=== PATIENT | female | born 1935 | race American Indian/Alaskan Native ===

== ENCOUNTER 2017-11-03 03:33 | Inpatient (IN) | payer MEDICARE, SELFPAY ==
[2017-11-03] VITALS (16 sets, daily range): BP systolic 106–140; BP diastolic 76–101; PULSE 96–118; RESP 14–19; TEMP 36.2–36.7; O2SAT 92–97; BMI 27.7
--- NOTE | 2017-11-03 03:38 | ED.FALL ---
HPI - Fall General Chief Complaint: Extremity Injury, Lower Stated Complaint: GLF, L hip pain Time Seen by Provider: 11/03/17 03:34 Source: patient, family and EMS Mode of arrival: EMS Limitations: no limitations History of Present Illness HPI Narrative: 82-year-old female brought in by EMS after she had a witnessed fall at home. Patient states that she was trying to sit on a arm chair and missed the seat of the chair and sat on the arm and fell off landing on her left elbow left hip. Has had pain in the left hip since then. Is on anticoagulation but did not hit her head. No loss of consciousness. The fall was witnessed by the patient's son. Related Data Home Medications Medication Instructions Recorded Confirmed MAGNESIUM CHLORIDE SR (MAG-DELAY) 64 mg PO QDAY #0 06/16/12 10/21/17 chlorpheniramine maleate 4 mg PO PRN PRN #0 03/03/17 10/21/17 docusate sodium 100 mg PO BIDP PRN #0 03/03/17 10/21/17 multivitamin [Multiple Vitamins] 1 tab PO QDAY #0 03/03/17 10/21/17 omega 9-pkt-feb-fish oil [Fish Oil] 1,200 mg PO QDAY #0 03/03/17 10/21/17 sennosides [senna] 8.6 mg PO #0 03/03/17 10/21/17 alprazolam 0.25 mg PO Q8HP PRN #0 07/13/17 10/21/17 carboxymethylcellulose sodium 15 ml OP QDAY #0 08/01/17 10/21/17 [Refresh Tears] bisoprolol fumarate 5 mg tablet 15 mg PO DAILY #0 tab 10/21/17 10/21/17 Previous Rx's Medication Instructions Recorded sertraline [Zoloft] 50 mg PO QDAY #30 tab 08/01/17 thyroid (pork) [[place] Thyroid] 120 mg PO QDAY #30 tab 08/01/17 potassium chloride 10 meq PO QDAY #30 tab 08/09/17 benzonatate [Tessalon Perles] 100 mg PO BIDP PRN #30 cap 09/23/17 warfarin 3 mg tablet 3 mg PO DAILY #90 tab 10/19/17 tramadol 50 mg tablet 50 mg PO BID #60 tab 10/21/17 Allergies Allergy/AdvReac Type Severity Reaction Status Date / Time bumetanide [BUMETANIDE] Allergy Unknown Verified 10/21/17 14:06 carisoprodol [CARISOPRODOL] Allergy Unknown Verified 10/21/17 14:06 digoxin [DIGOXIN] Allergy Unknown Verified 10/21/17 14:06 flecainide [FLECAINIDE] Allergy Unknown Verified 10/21/17 14:06 ibuprofen [IBUPROFEN] Allergy Unknown Verified 10/21/17 14:06 lactose [LACTOSE] Allergy Unknown Verified 10/21/17 14:06 Penicillins [PENICILLINS] Allergy Unknown Verified 10/21/17 14:06 quinidine [QUINIDINE] Allergy Unknown Verified 10/21/17 14:06 Quinolones [QUINOLONES] Allergy Unknown Verified 10/21/17 14:06 Sulfa (Sulfonamide Allergy Unknown Verified 10/21/17 14:06 Antibiotics) [SULFA (SULFONAMIDE ANTIBIOTICS)] verapamil [VERAPAMIL] Allergy Unknown Verified 10/21/17 14:06 Review of Systems Constitutional Denies chills, Denies fever(s), Denies lethargy and Denies weakness ENT Ears, Nose, Mouth, and Throat: Denies vertigo and Denies dizziness Cardiovascular Denies chest pain, Denies syncope, Denies irregular heart rhythm, Denies lightheadedness, Denies palpitations, Denies dyspnea, Denies dyspnea on exertion and Denies orthopnea Respiratory Denies cough, Denies dyspnea, Denies dyspnea on exertion and Denies wheezing Gastrointestinal Gastrointestinal: Denies abdominal pain, Denies change in bowel habits, Denies diarrhea, Denies nausea and Denies vomiting Musculoskeletal Comments: Left hip pain Integumentary/Breasts Denies pruritus, Denies erythema, Denies rash and Denies wounds Neurologic Denies confusion, Denies vertigo, Denies dizziness, Denies syncope and Denies weakness Psychiatric Denies confusion Endocrine Denies palpitations Hematologic/Lymphatic Comments: Is on anticoagulation Allergic/Immunologic Denies wheezing Exam Initial Vital Signs Initial Vital Signs: Vital Signs Pulse Rate 96 H 11/03/17 03:45 Respiratory Rate 18 11/03/17 03:45 Blood Pressure 140/100 H 11/03/17 03:45 Pulse Oximetry 96 11/03/17 03:45 Const General: cooperative and well developed Nutritional Appearance: well nourished Orientation: alert, awake and not confused [facility] Head: normal to inspection, normocephalic and atraumatic Resp Effort & Inspection: normal respiratory effort, able to speak in complete sentences, no respiratory distress and no use of accessory muscles Auscultation: clear to auscultation bilaterally, no rales, no rhonchi and no wheezes Cardio Rate: regular rate Rhythm: abnormal rhythm irregularly irregular GI Inspection: non-distended Palpation: soft, no hepatosplenomegaly, No guarding, No pulsatile mass and No tender Auscultation: normal bowel sounds Skin General: no rashes or lesions noted, No jaundice and No petechiae Neuro General: alert, awake and oriented x3 (Oriented to person, place, date, situation, does not know year or month) Extrem Other: Bilateral upper extremities unremarkable Right lower extremity unremarkable Pain with palpation left hip Left knee unremarkable Left ankle unremarkable PFSH Family History Father Heart disease Hypertension Mother Diabetes mellitus Heart disease Hypertension Social History Smoking Status: Never smoker Course Orders Ordered: ED Orders 11/03/17 03:39 XR hip w pel if done LT 2V Stat 11/03/17 04:03 EKG-12 Lead Stat 11/03/17 04:10 Basic Metabolic Panel Stat Complete Blood Count AUTO DIFF Stat Partial Thromboplastin Time Stat Prothrombin Time INR Stat 11/03/17 04:20 Type and Screen Stat Discontinued Medications Morphine Sulfate (Morphine) 4 mg IV NOW ONE Stop: 11/03/17 04:30 Vital Signs - 8 hr 11/03/17 03:45 Pulse Rate 96 H Respiratory Rate 18 Blood Pressure 140/100 H Pulse Oximetry 96 MDM - Fall Medical Records Attestation: I reviewed the patient's medical records. Lab Data Attestation: I reviewed the patient's lab results. Result diagrams: 11/03/17 04:10 11/03/17 04:10 Lab Results 11/03/17 11/03/17 11/03/17 Range/Units 04:10 04:10 04:10 WBC 8.5 (4.5-11.0) X10^3/uL RBC 4.99 (4.0-5.2) X10^6/uL Hgb 15.4 (12.0-16.0) g/dL Hct 47.0 H (36-46) % MCV 94.1 (80-100) fL MCH 30.8 (26-34) PG MCHC 32.8 (30-36) % RDW 18.1 H (11.6-14.8) % Plt Count 212 (150-400) X10^3/uL Neut % (Auto) 60.8 (50-75) % Lymph % (Auto) 27.1 (25-40) % [place] % (Auto) 9.5 (3-14) % Eos % (Auto) 2.0 (2-4) % Baso % (Auto) 0.6 (0-2) % Neut # (Auto) 5200 (8064-1721) /uL PT 20.1 H (10.1-12.7) SECONDS INR 1.9 H (0.9-1.3) APTT 43 H (26.4-36.2) SECONDS Sodium 141 (137-145) mmol/L Potassium 3.9 (3.4-5.1) mmol/L Chloride 98 (98-107) mmol/L Carbon Dioxide 32 (22-32) mmol/L BUN 17 (7-17) mg/dL Creatinine 0.80 (0.52-1.04) mg/dL Estimated GFR > 60.0 (>60) mL/min BUN/Creatinine Ratio 21.3 (6-22) Glucose 102 (80-110) mg/dL Calcium 9.1 (8.4-10.2) mg/dL Imaging Data Left hip x-ray: Radiologist's impression: Subcapital/transcervical fracture of the proximal left femur with mild displacement and impaction. No dislocation ECG Data Attestation: I personally reviewed and interpreted this ECG as follows: Prior ECG tracings: not available for review Interpretation: Atrial fibrillation Ventricular rate in 96 Normal axis Normal QRS Normal QTC Nonspecific ST T wave changes MDM Narrative Medical decision making narrative: Patient is neurovascularly intact left lower extremity. Fracture seen on x-ray. Preoperative labs and EKG ordered. Discussed the case with Dr. Glaser with Orthopedics who will see the patient in the morning and recommended admission to Medicine service. Discussed the case with Dr. Pedraza who admit the patient for the patient's primary care doctor. Discussed the case with the patient and the son who was at bedside. They expressed understanding and agreement with plan Discharge Plan Departure Patient Disposition: Admitted As Inpatient Clinical Impression: Closed fracture of neck of left femur Admit Date/Time: 11/03/17 05:06 Admit Provider: Joselito Pedraza
--- NOTE | 2017-11-03 03:39 | DI.RAD.S_ITS ---
PROCEDURE: XR HIP W PEL IF DONE LT 2V INDICATIONS: Fall left hip pain TECHNIQUE: AP pelvis with lateral view(s) of the left hip(s). COMPARISON: [facility], CR, [id number] W PEL IF PERFORMED, 08/01/2017, 17:27. FINDINGS: Bones: Bilateral degenerative hip joint disease associated with deformity of the femoral heads, unchanged. Subcapital left hip fracture, slightly impacted laterally. Pelvic ring appears intact. No suspicious bony lesions. Soft tissues: The visualized bowel gas pattern is normal. No suspicious soft tissue calcifications. IMPRESSION: 1. Subcapital left femoral neck fracture without angulation deformity. 2. High-grade bilateral degenerative hip joint disease. Dictated by: Sage Ocampo M.D. on 11/03/2017 at 7:58 Approved by: Sage Ocampo M.D. on 11/03/2017 at 8:10
[2017-11-03 04:28] LABS: INR 1.9 (0.9-1.3); Prothrombin Time 20.1 SECONDS (10.1-12.7)
[2017-11-03 04:30] LABS: Add Manual Diff / Slide Review NO; Basophils Percent Auto 0.6 % (0-2); Hemoglobin 15.4 g/dL (12.0-16.0); Lymphocytes Percent Auto 27.1 % (25-40); Mean Corpuscular HGB Conc 32.8 % (30-36); Mean Corpuscular Hemoglobin 30.8 PG (26-34); Mean Corpuscular Volume 94.1 fL (80-100); Monocytes Percent Auto 9.5 % (3-14); Neutrophils Absolute Auto 5200 /uL (3000-5900); Neutrophils Percent Auto 60.8 % (50-75); Platelet Count 212 X10^3/uL (150-400); Red Blood Cell Count 4.99 X10^6/uL (4.0-5.2); Red Cell Distribution Width 18.1 % (11.6-14.8); White Blood Cell Count 8.5 X10^3/uL (4.5-11.0)
[2017-11-03] MEDS: MORPHINE 4 MG/ML INJ IV ×3 (04:30→21:44)
[2017-11-03 04:31] LABS: PTT Partial Thromboplastin Tim 43 SECONDS (26.4-36.2)
[2017-11-03 04:33] LABS: BUN Creatinine Ratio 21.3 (6-22); Blood Urea Nitrogen 17 mg/dL (7-17); Calcium 9.1 mg/dL (8.4-10.2); Carbon Dioxide 32 mmol/L (22-32); Chloride 98 mmol/L (98-107); Estimated Glomerular Filt Rate > 60.0 mL/min (>60); Glucose 102 mg/dL (80-110); HEMOLYSIS 15 (0-50); Potassium 3.9 mmol/L (3.4-5.1); Sodium 141 mmol/L (137-145)
[2017-11-03] MEDS: SODIUM CHLORIDE 0.9% 1,000 ML 100 ML IV (05:40)
--- NOTE | 2017-11-03 06:17 | PC.NURSE ---
Admit note: Patient admitted to AC from ED accompanied by RN and her son Daryl. Oriented to room, environment, and plan of care. Discussed importance of calling nurse for needs, call light within reach and BA active. IVF initiated, FC secured in place, draining to gravity, and continue NPO. Declined pain upon arrival, however states thirst and discomfort with FC in place. Provided reassurance and support. Occasionally forgetful and needs reminder of limitations. CMS to LLE intact.
--- NOTE | 2017-11-03 09:31 | PM.HP.1 ---
History of Present Illness Chief complaint: GLF, L hip pain Narrative: Yelena Pedersen is a 82 year old female who fell at home yesterday. She was trying to sit on a arm chair and missed the seat of the chair instead sitting on the arm of the chair and fell landing on her left elbow and hip. She had pain in the left hip and was brought into the ER by EMS. X-rays showed a left femoral neck fracture. She was admitted under the hospital service. She is on warfarin. She has dementia. Patient History Family & Social History Family History: Reviewed 11/03/17 by Anjelica Breaux PA-C Social History: household members children Prior Living Arrangements House Safety & Behavioral: Feels Safe in Current No Environment Been Physically Hurt or No Threatened By a Person Suicidal Ideation Description None Tobacco & Substance use: Smoking Status Never smoker alcohol intake never Substance Use Type does not use Meds Home Medications Medication Instructions Recorded Confirmed Type MAGNESIUM CHLORIDE SR (MAG-DELAY) 64 mg PO QDAY #0 06/16/12 10/21/17 History chlorpheniramine maleate 4 mg PO PRN PRN #0 03/03/17 10/21/17 History docusate sodium 100 mg PO BIDP PRN #0 03/03/17 10/21/17 History multivitamin [Multiple Vitamins] 1 tab PO QDAY #0 03/03/17 10/21/17 History omega 7-mah-flj-fish oil [Fish Oil] 1,200 mg PO QDAY #0 03/03/17 10/21/17 History sennosides [senna] 8.6 mg PO #0 03/03/17 10/21/17 History alprazolam 0.25 mg PO Q8HP PRN #0 07/13/17 10/21/17 History carboxymethylcellulose sodium 15 ml OP QDAY #0 08/01/17 10/21/17 History [Refresh Tears] sertraline [Zoloft] 50 mg PO QDAY #30 tab 08/01/17 10/21/17 Rx thyroid (pork) [[place] Thyroid] 120 mg PO QDAY #30 tab 08/01/17 10/21/17 Rx potassium chloride 10 meq PO QDAY #30 tab 08/09/17 10/21/17 Rx benzonatate [Tessalon Perles] 100 mg PO BIDP PRN #30 cap 09/23/17 10/21/17 Rx warfarin 3 mg tablet 3 mg PO DAILY #90 tab 10/19/17 10/21/17 Rx bisoprolol fumarate 5 mg tablet 15 mg PO DAILY #0 tab 10/21/17 10/21/17 History tramadol 50 mg tablet 50 mg PO BID #60 tab 10/21/17 Rx Allergies Allergy/AdvReac Type Severity Reaction Status Date / Time bumetanide [BUMETANIDE] Allergy Unknown Verified 10/21/17 14:06 carisoprodol [CARISOPRODOL] Allergy Unknown Verified 10/21/17 14:06 digoxin [DIGOXIN] Allergy Unknown Verified 10/21/17 14:06 flecainide [FLECAINIDE] Allergy Unknown Verified 10/21/17 14:06 ibuprofen [IBUPROFEN] Allergy Unknown Verified 10/21/17 14:06 lactose [LACTOSE] Allergy Unknown Verified 10/21/17 14:06 Penicillins [PENICILLINS] Allergy Unknown Verified 10/21/17 14:06 quinidine [QUINIDINE] Allergy Unknown Verified 10/21/17 14:06 Quinolones [QUINOLONES] Allergy Unknown Verified 10/21/17 14:06 Sulfa (Sulfonamide Allergy Unknown Verified 10/21/17 14:06 Antibiotics) [SULFA (SULFONAMIDE ANTIBIOTICS)] verapamil [VERAPAMIL] Allergy Unknown Verified 10/21/17 14:06 Review of Systems Review of Systems unobtainable due to mental status Exam Vital Signs (past 8 hours): Vital Signs - 8 hr 11/03/17 03:45 11/03/17 05:15 11/03/17 05:37 Temperature 97.9 F Pulse Rate 96 H 101 H 104 H Respiratory Rate 18 19 14 Blood Pressure 140/100 H 130/76 H 106/85 H Pulse Oximetry 96 92 11/03/17 07:35 Temperature 97.5 F L Pulse Rate 118 H Respiratory Rate 14 Blood Pressure 130/101 H Pulse Oximetry 97 Pulse Oximetry 97 Oxygen Delivery Method Room Air Oxygen Flow Rate 1 Narrative Exam Narrative: Patient in bed. Awake. Unable to respond to questions. Appears confused. Bilateral calves soft and nontender. Left foot dorsalis pedis pulse is palpable. No abrasions on the left hip. Const Nutritional Appearance: average body habitus Orientation: awake and confused [facility] Head: normal to inspection Eyes General: appearance normal, both eyes and all related structures Chest Chest: normal inspection of the chest Resp Effort & Inspection: normal respiratory effort Skin General: no rashes or lesions noted Objective Labs Result Diagrams: 11/03/17 04:10 11/03/17 04:10 Labs: Laboratory Results - last 24 hr 11/03/17 11/03/17 11/03/17 04:10 04:10 04:10 WBC 8.5 RBC 4.99 Hgb 15.4 Hct 47.0 H MCV 94.1 MCH 30.8 MCHC 32.8 RDW 18.1 H Plt Count 212 Neut % (Auto) 60.8 Lymph % (Auto) 27.1 [place] % (Auto) 9.5 Eos % (Auto) 2.0 Baso % (Auto) 0.6 Neut # (Auto) 5200 PT 20.1 H INR 1.9 H APTT 43 H Sodium 141 Potassium 3.9 Chloride 98 Carbon Dioxide 32 BUN 17 Creatinine 0.80 Estimated GFR > 60.0 BUN/Creatinine Ratio 21.3 Glucose 102 Calcium 9.1 Blood Type Antibody Screen 11/03/17 04:20 WBC RBC Hgb Hct MCV MCH MCHC RDW Plt Count Neut % (Auto) Lymph % (Auto) [place] % (Auto) Eos % (Auto) Baso % (Auto) Neut # (Auto) PT INR APTT Sodium Potassium Chloride Carbon Dioxide BUN Creatinine Estimated GFR BUN/Creatinine Ratio Glucose Calcium Blood Type A Positive Antibody Screen Negative Assessment & Plan (1) Closed fracture of neck of left femur: Problem details: X-rays taken in the ER revealed a left femoral neck fracture. Patient on warfarin. PT and INR ordered for today and tomorrow. Depending on INR is when surgery will be performed. Pt NPO after midnight. Warfarin held. Possible surgery tomorrow. Continue DVT prophylaxis with SCDs. Qualifiers: Encounter type: initial encounter Fracture healing: Qualified Code(s): S72.002A - Fracture of unspecified part of neck of left femur, initial encounter for closed fracture Current visit: Yes Status: Acute (2) Dementia: Problem details: Being managed by the hospital service. Current visit: Yes Status: Acute (3) Atrial fibrillation: Problem details: Being managed by the hospital service. Current visit: No Status: Acute
--- NOTE | 2017-11-03 09:42 | P.HP_ITS ---
History of Present Illness Chief complaint: GLF, L hip pain Narrative: Yelena Pedersen is a 82 year old female who fell at home yesterday. She was trying to sit on a arm chair and missed the seat of the chair instead sitting on the arm of the chair and fell landing on her left elbow and hip. She had pain in the left hip and was brought into the ER by EMS. X-rays showed a left femoral neck fracture. She was admitted under the hospital service. She is on warfarin. She has dementia. Patient History Family & Social History Family History: Reviewed 11/03/17 by Anjelica Breaux PA-C Social History: household members children Prior Living Arrangements House Safety & Behavioral: Feels Safe in Current No Environment Been Physically Hurt or No Threatened By a Person Suicidal Ideation Description None Tobacco & Substance use: Smoking Status Never smoker alcohol intake never Substance Use Type does not use Meds Home Medications Medication Instructions Recorded Confirmed Type MAGNESIUM CHLORIDE SR (MAG-DELAY) 64 mg PO QDAY #0 06/16/12 10/21/17 History chlorpheniramine maleate 4 mg PO PRN PRN #0 03/03/17 10/21/17 History docusate sodium 100 mg PO BIDP PRN #0 03/03/17 10/21/17 History multivitamin [Multiple Vitamins] 1 tab PO QDAY #0 03/03/17 10/21/17 History omega 6-mfu-vef-fish oil [Fish Oil] 1,200 mg PO QDAY #0 03/03/17 10/21/17 History sennosides [senna] 8.6 mg PO #0 03/03/17 10/21/17 History alprazolam 0.25 mg PO Q8HP PRN #0 07/13/17 10/21/17 History carboxymethylcellulose sodium 15 ml OP QDAY #0 08/01/17 10/21/17 History [Refresh Tears] sertraline [Zoloft] 50 mg PO QDAY #30 tab 08/01/17 10/21/17 Rx thyroid (pork) [[place] Thyroid] 120 mg PO QDAY #30 tab 08/01/17 10/21/17 Rx potassium chloride 10 meq PO QDAY #30 tab 08/09/17 10/21/17 Rx benzonatate [Tessalon Perles] 100 mg PO BIDP PRN #30 cap 09/23/17 10/21/17 Rx warfarin 3 mg tablet 3 mg PO DAILY #90 tab 10/19/17 10/21/17 Rx bisoprolol fumarate 5 mg tablet 15 mg PO DAILY #0 tab 10/21/17 10/21/17 History tramadol 50 mg tablet 50 mg PO BID #60 tab 10/21/17 Rx Allergies Allergy/AdvReac Type Severity Reaction Status Date / Time bumetanide [BUMETANIDE] Allergy Unknown Verified 10/21/17 14:06 carisoprodol [CARISOPRODOL] Allergy Unknown Verified 10/21/17 14:06 digoxin [DIGOXIN] Allergy Unknown Verified 10/21/17 14:06 flecainide [FLECAINIDE] Allergy Unknown Verified 10/21/17 14:06 ibuprofen [IBUPROFEN] Allergy Unknown Verified 10/21/17 14:06 lactose [LACTOSE] Allergy Unknown Verified 10/21/17 14:06 Penicillins [PENICILLINS] Allergy Unknown Verified 10/21/17 14:06 quinidine [QUINIDINE] Allergy Unknown Verified 10/21/17 14:06 Quinolones [QUINOLONES] Allergy Unknown Verified 10/21/17 14:06 Sulfa (Sulfonamide Allergy Unknown Verified 10/21/17 14:06 Antibiotics) [SULFA (SULFONAMIDE ANTIBIOTICS)] verapamil [VERAPAMIL] Allergy Unknown Verified 10/21/17 14:06 Review of Systems Review of Systems unobtainable due to mental status Exam Vital Signs (past 8 hours): Vital Signs - 8 hr 3 11/03/17 03:45 11/03/17 05:15 11/03/17 05:37 Temperature 97.9 F Pulse Rate 96 H 101 H 104 H Respiratory Rate 18 19 14 Blood Pressure 140/100 H 130/76 H 106/85 H Pulse Oximetry 96 92 3 11/03/17 07:35 Temperature 97.5 F L Pulse Rate 118 H Respiratory Rate 14 Blood Pressure 130/101 H Pulse Oximetry 97 Pulse Oximetry 97 Oxygen Delivery Method Room Air Oxygen Flow Rate 1 Narrative Exam Narrative: Patient in bed. Awake. Unable to respond to questions. Appears confused. Bilateral calves soft and nontender. Left foot dorsalis pedis pulse is palpable. No abrasions on the left hip. Const Nutritional Appearance: average body habitus Orientation: awake and confused [facility] Head: normal to inspection Eyes General: appearance normal, both eyes and all related structures Chest Chest: normal inspection of the chest Resp Effort & Inspection: normal respiratory effort Skin General: no rashes or lesions noted Objective Labs Result Diagrams: 11/03/17 04:10 11/03/17 04:10 Labs: Laboratory Results - last 24 hr 11/03/17 11/03/17 11/03/17 04:10 04:10 04:10 WBC 8.5 RBC 4.99 Hgb 15.4 Hct 47.0 H MCV 94.1 MCH 30.8 MCHC 32.8 RDW 18.1 H Plt Count 212 Neut % (Auto) 60.8 Lymph % (Auto) 27.1 [place] % (Auto) 9.5 Eos % (Auto) 2.0 Baso % (Auto) 0.6 Neut # (Auto) 5200 PT 20.1 H INR 1.9 H APTT 43 H Sodium 141 Potassium 3.9 Chloride 98 Carbon Dioxide 32 BUN 17 Creatinine 0.80 Estimated GFR > 60.0 BUN/Creatinine Ratio 21.3 Glucose 102 Calcium 9.1 Blood Type Antibody Screen 11/03/17 04:20 WBC RBC Hgb Hct MCV MCH MCHC RDW Plt Count Neut % (Auto) Lymph % (Auto) [place] % (Auto) Eos % (Auto) Baso % (Auto) Neut # (Auto) PT INR APTT Sodium Potassium Chloride Carbon Dioxide BUN Creatinine Estimated GFR BUN/Creatinine Ratio Glucose Calcium Blood Type A Positive Antibody Screen Negative Assessment & Plan (1) Closed fracture of neck of left femur: Problem details: X-rays taken in the ER revealed a left femoral neck fracture. Patient on warfarin. PT and INR ordered for today and tomorrow. Depending on INR is when surgery will be performed. Pt NPO after midnight. Warfarin held. Possible surgery tomorrow. Continue DVT prophylaxis with SCDs. Qualifiers: Encounter type: initial encounter Fracture healing: Qualified Code(s) : S72.002A - Fracture of unspecified part of neck of left femur, initial encounter for closed fracture Current visit: Yes Status: Acute (2) Dementia: Problem details: Being managed by the hospital service. Current visit: Yes Status: Acute (3) Atrial fibrillation: Problem details: Being managed by the hospital service. Current visit: No Status: Acute
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
--- NOTE | 2017-11-03 17:56 | PM.CN ---
History of Present Illness Chief complaint: GLF, L hip pain PFSH Medical History Closed fracture of neck of left femur (Acute) Atrial fibrillation (Chronic) Dementia (Chronic) Ischemic cardiomyopathy (Acute) Coronary artery disease (Chronic) Gout (Chronic) Hypothyroid (Chronic) Family History: Reviewed 11/03/17 by Anjelica Breaux PA-C Social History household members: children Smoking Status: Never smoker alcohol intake: never Meds Home Medications Medication Instructions Recorded Confirmed Type chlorpheniramine maleate 4 mg PO PRN PRN #0 03/03/17 11/03/17 History multivitamin [Multiple Vitamins] 1 tab PO QDAY #0 03/03/17 11/03/17 History omega 6-mla-jag-fish oil [Fish Oil] 1,200 mg PO QDAY #0 03/03/17 11/03/17 History sennosides [senna] 8.6 mg PO PRN PRN #0 03/03/17 11/03/17 History alprazolam 0.25 mg PO Q8HP PRN #0 07/13/17 11/03/17 History carboxymethylcellulose sodium 15 ml OP QDAY #0 08/01/17 11/03/17 History [Refresh Tears] sertraline [Zoloft] 50 mg PO QDAY #30 tab 08/01/17 11/03/17 Rx thyroid (pork) [[place] Thyroid] 120 mg PO QDAY #30 tab 08/01/17 11/03/17 Rx warfarin 3 mg tablet 3 mg PO DAILY #90 tab 10/19/17 11/03/17 Rx bisoprolol fumarate 5 mg tablet 15 mg PO Q12H #0 tab 10/21/17 11/03/17 History chlorthalidone 50 mg PO DAILY 11/03/17 11/03/17 History tramadol 50 mg PO BEDTIME 11/03/17 11/03/17 History Allergies Allergy/AdvReac Type Severity Reaction Status Date / Time bumetanide [BUMETANIDE] Allergy Unknown Verified 10/21/17 14:06 carisoprodol [CARISOPRODOL] Allergy Unknown Verified 10/21/17 14:06 digoxin [DIGOXIN] Allergy Unknown Verified 10/21/17 14:06 flecainide [FLECAINIDE] Allergy Unknown Verified 10/21/17 14:06 ibuprofen [IBUPROFEN] Allergy Unknown Verified 10/21/17 14:06 lactose [LACTOSE] Allergy Unknown Verified 10/21/17 14:06 Penicillins [PENICILLINS] Allergy Unknown Verified 10/21/17 14:06 quinidine [QUINIDINE] Allergy Unknown Verified 10/21/17 14:06 Quinolones [QUINOLONES] Allergy Unknown Verified 10/21/17 14:06 Sulfa (Sulfonamide Allergy Unknown Verified 10/21/17 14:06 Antibiotics) [SULFA (SULFONAMIDE ANTIBIOTICS)] verapamil [VERAPAMIL] Allergy Unknown Verified 10/21/17 14:06 donepezil AdvReac Hallucinati Verified 11/03/17 11:09 ng Review of Systems Review of Systems All systems reviewed & are unremarkable except as noted in HPI and below Exam Vital Signs (past 8 hours): Vital Signs - 8 hr 11/03/17 11:59 11/03/17 13:07 11/03/17 13:28 Temperature 97.7 F 97.2 F L 97.2 F L Pulse Rate 105 H 107 H 107 H Respiratory Rate 14 16 16 Blood Pressure 127/88 H 137/99 H 137/99 H Pulse Oximetry 93 11/03/17 15:34 11/03/17 15:52 11/03/17 16:47 Temperature 97.2 F L 97.2 F L 97.2 F L Pulse Rate 105 H 106 H 106 H Respiratory Rate 14 16 16 Blood Pressure 130/80 H 138/79 H 138/79 H Pulse Oximetry 96 11/03/17 17:06 11/03/17 17:09 Temperature 97.9 F 97.9 F Pulse Rate 101 H 105 H Respiratory Rate 16 16 Blood Pressure 119/81 H 119/81 H Pulse Oximetry 92 Pulse Oximetry 92 Oxygen Delivery Method Room Air Oxygen Flow Rate 1 Extrem Other: left hip pain with exam of left leg, well perfused. no s/s of DVT Objective Labs Result Diagrams: 11/03/17 04:10 11/03/17 04:10 Labs: Laboratory Results - last 24 hr 11/03/17 11/03/17 11/03/17 04:10 04:10 04:10 WBC 8.5 RBC 4.99 Hgb 15.4 Hct 47.0 H MCV 94.1 MCH 30.8 MCHC 32.8 RDW 18.1 H Plt Count 212 Neut % (Auto) 60.8 Lymph % (Auto) 27.1 [place] % (Auto) 9.5 Eos % (Auto) 2.0 Baso % (Auto) 0.6 Neut # (Auto) 5200 PT 20.1 H INR 1.9 H APTT 43 H Sodium 141 Potassium 3.9 Chloride 98 Carbon Dioxide 32 BUN 17 Creatinine 0.80 Estimated GFR > 60.0 BUN/Creatinine Ratio 21.3 Glucose 102 Calcium 9.1 Blood Type Antibody Screen 11/03/17 11/03/17 04:20 11:30 WBC RBC Hgb Hct MCV MCH MCHC RDW Plt Count Neut % (Auto) Lymph % (Auto) [place] % (Auto) Eos % (Auto) Baso % (Auto) Neut # (Auto) PT INR APTT Sodium Potassium Chloride Carbon Dioxide BUN Creatinine Estimated GFR BUN/Creatinine Ratio Glucose Calcium Blood Type A Positive A Positive Antibody Screen Negative Assessment & Plan Plan: Plan: Patient with ground level fall and sustained left femoral neck fx that is minimumly displaced. Patient is an active ambulator prior to the fall. Will plan for pinning of her left hip in OR tomorrow. Repeat INR in am tomorrow. NWB to LLE and bed rest until tomorrow.
--- NOTE | 2017-11-03 17:59 | P.CONS_ITS ---
History of Present Illness Chief complaint: GLF, L hip pain PFSH Medical History Closed fracture of neck of left femur (Acute) Atrial fibrillation (Chronic) Dementia (Chronic) Ischemic cardiomyopathy (Acute) Coronary artery disease (Chronic) Gout (Chronic) Hypothyroid (Chronic) Family History: Reviewed 11/03/17 by Anjelica Breaux PA-C Social History household members: children Smoking Status: Never smoker alcohol intake: never Meds Home Medications Medication Instructions Recorded Confirmed Type chlorpheniramine maleate 4 mg PO PRN PRN #0 03/03/17 11/03/17 History multivitamin [Multiple Vitamins] 1 tab PO QDAY #0 03/03/17 11/03/17 History omega 5-asu-byb-fish oil [Fish Oil] 1,200 mg PO QDAY #0 03/03/17 11/03/17 History sennosides [senna] 8.6 mg PO PRN PRN #0 03/03/17 11/03/17 History alprazolam 0.25 mg PO Q8HP PRN #0 07/13/17 11/03/17 History carboxymethylcellulose sodium 15 ml OP QDAY #0 08/01/17 11/03/17 History [Refresh Tears] sertraline [Zoloft] 50 mg PO QDAY #30 tab 08/01/17 11/03/17 Rx thyroid (pork) [[place] Thyroid] 120 mg PO QDAY #30 tab 08/01/17 11/03/17 Rx warfarin 3 mg tablet 3 mg PO DAILY #90 tab 10/19/17 11/03/17 Rx bisoprolol fumarate 5 mg tablet 15 mg PO Q12H #0 tab 10/21/17 11/03/17 History chlorthalidone 50 mg PO DAILY 11/03/17 11/03/17 History tramadol 50 mg PO BEDTIME 11/03/17 11/03/17 History Allergies Allergy/AdvReac Type Severity Reaction Status Date / Time bumetanide [BUMETANIDE] Allergy Unknown Verified 10/21/17 14:06 carisoprodol [CARISOPRODOL] Allergy Unknown Verified 10/21/17 14:06 digoxin [DIGOXIN] Allergy Unknown Verified 10/21/17 14:06 flecainide [FLECAINIDE] Allergy Unknown Verified 10/21/17 14:06 ibuprofen [IBUPROFEN] Allergy Unknown Verified 10/21/17 14:06 lactose [LACTOSE] Allergy Unknown Verified 10/21/17 14:06 Penicillins [PENICILLINS] Allergy Unknown Verified 10/21/17 14:06 quinidine [QUINIDINE] Allergy Unknown Verified 10/21/17 14:06 Quinolones [QUINOLONES] Allergy Unknown Verified 10/21/17 14:06 Sulfa (Sulfonamide Allergy Unknown Verified 10/21/17 14:06 Antibiotics) [SULFA (SULFONAMIDE ANTIBIOTICS)] verapamil [VERAPAMIL] Allergy Unknown Verified 10/21/17 14:06 donepezil AdvReac Hallucinati Verified 11/03/17 11:09 ng Review of Systems Review of Systems All systems reviewed & are unremarkable except as noted in HPI and below Exam Vital Signs (past 8 hours): Vital Signs - 8 hr 3 11/03/17 11:59 11/03/17 13:07 11/03/17 13:28 Temperature 97.7 F 97.2 F L 97.2 F L Pulse Rate 105 H 107 H 107 H Respiratory Rate 14 16 16 Blood Pressure 127/88 H 137/99 H 137/99 H Pulse Oximetry 93 3 11/03/17 15:34 11/03/17 15:52 11/03/17 16:47 Temperature 97.2 F L 97.2 F L 97.2 F L Pulse Rate 105 H 106 H 106 H Respiratory Rate 14 16 16 Blood Pressure 130/80 H 138/79 H 138/79 H Pulse Oximetry 96 3 11/03/17 17:06 11/03/17 17:09 Temperature 97.9 F 97.9 F Pulse Rate 101 H 105 H Respiratory Rate 16 16 Blood Pressure 119/81 H 119/81 H Pulse Oximetry 92 Pulse Oximetry 92 Oxygen Delivery Method Room Air Oxygen Flow Rate 1 Extrem Other: left hip pain with exam of left leg, well perfused. no s/s of DVT Objective Labs Result Diagrams: 11/03/17 04:10 11/03/17 04:10 Labs: Laboratory Results - last 24 hr 11/03/17 11/03/17 11/03/17 04:10 04:10 04:10 WBC 8.5 RBC 4.99 Hgb 15.4 Hct 47.0 H MCV 94.1 MCH 30.8 MCHC 32.8 RDW 18.1 H Plt Count 212 Neut % (Auto) 60.8 Lymph % (Auto) 27.1 [place] % (Auto) 9.5 Eos % (Auto) 2.0 Baso % (Auto) 0.6 Neut # (Auto) 5200 PT 20.1 H INR 1.9 H APTT 43 H Sodium 141 Potassium 3.9 Chloride 98 Carbon Dioxide 32 BUN 17 Creatinine 0.80 Estimated GFR > 60.0 BUN/Creatinine Ratio 21.3 Glucose 102 Calcium 9.1 Blood Type Antibody Screen 11/03/17 11/03/17 04:20 11:30 WBC RBC Hgb Hct MCV MCH MCHC RDW Plt Count Neut % (Auto) Lymph % (Auto) [place] % (Auto) Eos % (Auto) Baso % (Auto) Neut # (Auto) PT INR APTT Sodium Potassium Chloride Carbon Dioxide BUN Creatinine Estimated GFR BUN/Creatinine Ratio Glucose Calcium Blood Type A Positive A Positive Antibody Screen Negative Assessment & Plan Plan: Plan: Patient with ground level fall and sustained left femoral neck fx that is minimumly displaced. Patient is an active ambulator prior to the fall. Will plan for pinning of her left hip in OR tomorrow. Repeat INR in am tomorrow. NWB to LLE and bed rest until tomorrow.
[2017-11-03] MEDS: SERTRALINE 50 MG TABLET PO (20:37)
[2017-11-03] MEDS: ALPRAZolam 0.25 MG TABLET PO (20:39)
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
[2017-11-04] VITALS (35 sets, daily range): BP systolic 73–139; BP diastolic 36–97; PULSE 90–120; RESP 10–20; TEMP 35.6–36.8; O2SAT 90–100; BMI 27.7
--- NOTE | 2017-11-04 | DI.RAD.S_ITS ---
PROCEDURE: XR HIP W PEL IF DONE LT 2V INDICATIONS: ORIF LEFT HIP TECHNIQUE: 2 interpreted views of the hip were acquired. [facility], 3:25. [facility], [facility], [id number] W PEL IF PERFORMED, 08/01/2017, 17:27. FINDINGS: Bones: ORIF of the femoral neck has been performed. One is anatomic. No suspicious bony lesions. The visualized pelvic ring appears intact. Soft tissues: No suspicious soft tissue calcifications or masses. IMPRESSION: ORIF left femoral neck. Dictated by: Valarie Lin M.D. on 11/04/2017 at 18:27 Approved by: Valarie Lin M.D. on 11/04/2017 at 18:27
[2017-11-04] MEDS: SODIUM CHLORIDE 0.9% 1,000 ML 100 ML IV (04:50)
[2017-11-04] MEDS: MORPHINE 4 MG/ML INJ IV ×2 (05:26→09:16)
--- NOTE | 2017-11-04 09:48 | PC.NURSE ---
Yelena is tearful and slightly confused this AM. After gentle assisted turning she began to audibly cry out in pain. Morphine 4 mg. IV given with good relief. She remains NPO. bingo caller to the OR today for L femur repair. Time to OR this PM still TBD, per OR staff possibly 1400.
--- NOTE | 2017-11-04 10:27 | PM.PN.1 ---
Exam Vital Signs (past 8 hours): Vital Signs - 8 hr 11/04/17 04:33 11/04/17 05:33 11/04/17 05:35 Temperature 98.3 F Pulse Rate 112 H Respiratory Rate 18 Blood Pressure 132/83 H Pulse Oximetry 91 93 93 11/04/17 07:30 Temperature 98.0 F Pulse Rate 107 H Respiratory Rate 20 Blood Pressure 119/65 Pulse Oximetry 90 L Pulse Oximetry 90 Oxygen Delivery Method Room Air Oxygen Flow Rate 1 Narrative Exam Narrative: Exam Narrative: More alert today no acute distress does arouse to stimulation but confused Oropharynx clear mucous membranes moist Neck is supple Heart irregular tachycardic Lungs clear Abdomen soft nontender Lower extremities trace edema Skin warm and dry Neuro exam no focal motor deficits at baseline with dementia confusion Objective Labs Result Diagrams: 11/03/17 04:10 11/03/17 04:10 Labs: Laboratory Results - last 24 hr 11/03/17 11/03/17 04:20 11:30 Blood Type A Positive A Positive Antibody Screen Negative Assessment & Plan Plan: Plan: One. Hip fracture management as per Orthopedics plan to reverse anticoagulation. 2. Chronic AFib on chronic warfarin 2 units FFP given yesterday plan to recheck INR this morning 3. History of hypothyroid plan to check TSH 4. History of coronary artery disease baseline EKG without signs of ST-T changes no signs of ischemia. Five. History of ischemic cardiomyopathy seems to be clinically stable at this point. Plan to avoid fluid overload watch carefully IV fluid rates 6. DVT prophylaxis as per orthopedic hip fracture protocol
--- NOTE | 2017-11-04 10:30 | P.PN_ITS ---
Exam Vital Signs (past 8 hours): Vital Signs - 8 hr 3 11/04/17 04:33 11/04/17 05:33 11/04/17 05:35 Temperature 98.3 F Pulse Rate 112 H Respiratory Rate 18 Blood Pressure 132/83 H Pulse Oximetry 91 93 93 3 11/04/17 07:30 Temperature 98.0 F Pulse Rate 107 H Respiratory Rate 20 Blood Pressure 119/65 Pulse Oximetry 90 L Pulse Oximetry 90 Oxygen Delivery Method Room Air Oxygen Flow Rate 1 Narrative Exam Narrative: Exam Narrative: More alert today no acute distress does arouse to stimulation but confused Oropharynx clear mucous membranes moist Neck is supple Heart irregular tachycardic Lungs clear Abdomen soft nontender Lower extremities trace edema Skin warm and dry Neuro exam no focal motor deficits at baseline with dementia confusion Objective Labs Result Diagrams: 11/03/17 04:10 11/03/17 04:10 Labs: Laboratory Results - last 24 hr 11/03/17 11/03/17 04:20 11:30 Blood Type A Positive A Positive Antibody Screen Negative Assessment & Plan Plan: Plan: One. Hip fracture management as per Orthopedics plan to reverse anticoagulation. 2. Chronic AFib on chronic warfarin 2 units FFP given yesterday plan to recheck INR this morning 3. History of hypothyroid plan to check TSH 4. History of coronary artery disease baseline EKG without signs of ST-T changes no signs of ischemia. Five. History of ischemic cardiomyopathy seems to be clinically stable at this point. Plan to avoid fluid overload watch carefully IV fluid rates 6. DVT prophylaxis as per orthopedic hip fracture protocol
--- NOTE | 2017-11-04 11:03 | PM.PN.1 ---
Subjective Date Patient Seen: 11/04/17 Time Patient Seen: 11:06 Interval history: Yelena Pedersen is a 82 year old female who fell at home. She was trying to sit on a arm chair and missed the seat of the chair instead sitting on the arm of the chair and fell landing on her left elbow and hip. She had pain in the left hip and was brought into the ER by EMS. X-rays showed a left femoral neck fracture. She was admitted under the hospital service. She is on warfarin. She has dementia. Patient is lying in bed asleep this morning. NPO. Exam Vital Signs (past 8 hours): Vital Signs - 8 hr 11/04/17 04:33 11/04/17 05:33 11/04/17 05:35 Temperature 98.3 F Pulse Rate 112 H Respiratory Rate 18 Blood Pressure 132/83 H Pulse Oximetry 91 93 93 11/04/17 07:30 Temperature 98.0 F Pulse Rate 107 H Respiratory Rate 20 Blood Pressure 119/65 Pulse Oximetry 90 L Pulse Oximetry 90 Oxygen Delivery Method Room Air Oxygen Flow Rate 1 Narrative Exam Narrative: Patient lying in bed asleep. On exam no abnormalities of lower extremities. Calves are soft, and compressible bilaterally. Pulses are symmetrical. Objective Labs Result Diagrams: 11/03/17 04:10 11/03/17 04:10 Labs: Laboratory Results - last 24 hr 11/03/17 11/03/17 04:20 11:30 Blood Type A Positive A Positive Antibody Screen Negative Assessment & Plan (1) Closed fracture of neck of left femur: Problem details: X-rays taken in the ER revealed a left femoral neck fracture. Patient will remain NPO. Warfarin held. Surgery this afternoon with Dr. Glaser. Continue DVT prophylaxis with SCDs. Qualifiers: Encounter type: initial encounter Fracture healing: Qualified Code(s): S72.002A - Fracture of unspecified part of neck of left femur, initial encounter for closed fracture Current visit: Yes Status: Acute (2) Atrial fibrillation: Problem details: Being managed by the hospital service. Current visit: No Status: Chronic (3) CHF (congestive heart failure): Current visit: No Status: Acute (4) Dementia: Problem details: Being managed by the hospital service. Current visit: Yes Status: Chronic (5) Ischemic cardiomyopathy: Current visit: No Status: Acute (6) Hypothyroid: Current visit: No Status: Acute (7) Recurrent falls: Current visit: No Status: Acute
--- NOTE | 2017-11-04 11:06 | P.PN_ITS ---
Subjective Date Patient Seen: 11/04/17 Time Patient Seen: 11:06 Interval history: Yelena Pedersen is a 82 year old female who fell at home. She was trying to sit on a arm chair and missed the seat of the chair instead sitting on the arm of the chair and fell landing on her left elbow and hip. She had pain in the left hip and was brought into the ER by EMS. X-rays showed a left femoral neck fracture. She was admitted under the hospital service. She is on warfarin. She has dementia. Patient is lying in bed asleep this morning. NPO. Exam Vital Signs (past 8 hours): Vital Signs - 8 hr 3 11/04/17 04:33 11/04/17 05:33 11/04/17 05:35 Temperature 98.3 F Pulse Rate 112 H Respiratory Rate 18 Blood Pressure 132/83 H Pulse Oximetry 91 93 93 3 11/04/17 07:30 Temperature 98.0 F Pulse Rate 107 H Respiratory Rate 20 Blood Pressure 119/65 Pulse Oximetry 90 L Pulse Oximetry 90 Oxygen Delivery Method Room Air Oxygen Flow Rate 1 Narrative Exam Narrative: Patient lying in bed asleep. On exam no abnormalities of lower extremities. Calves are soft, and compressible bilaterally. Pulses are symmetrical. Objective Labs Result Diagrams: 11/03/17 04:10 11/03/17 04:10 Labs: Laboratory Results - last 24 hr 11/03/17 11/03/17 04:20 11:30 Blood Type A Positive A Positive Antibody Screen Negative Assessment & Plan (1) Closed fracture of neck of left femur: Problem details: X-rays taken in the ER revealed a left femoral neck fracture. Patient will remain NPO. Warfarin held. Surgery this afternoon with Dr. Glaser. Continue DVT prophylaxis with SCDs. Qualifiers: Encounter type: initial encounter Fracture healing: Qualified Code(s) : S72.002A - Fracture of unspecified part of neck of left femur, initial encounter for closed fracture Current visit: Yes Status: Acute (2) Atrial fibrillation: Problem details: Being managed by the hospital service. Current visit: No Status: Chronic (3) CHF (congestive heart failure): Current visit: No Status: Acute (4) Dementia: Problem details: Being managed by the hospital service. Current visit: Yes Status: Chronic (5) Ischemic cardiomyopathy: Current visit: No Status: Acute (6) Hypothyroid: Current visit: No Status: Acute (7) Recurrent falls: Current visit: No Status: Acute
[2017-11-04 11:46] LABS: INR 2.3 (0.9-1.3); Prothrombin Time 24.4 SECONDS (10.1-12.7)
[2017-11-04] MEDS: PHYTONADIONE (VIT K1) 10 MG/ML AMP 5 MG SUBCUT (12:40)
--- NOTE | 2017-11-04 14:09 | CM.DPC ---
DCP Cont: Pt scheduled for surgery this afternoon. Pt sleeping throughout the day. Met w/pt's son Freddie and son Daryl; Freddie would like a referral faxed to [facility]. He lives down the [address], can check on pt, and he feels he can likely care for pt at his apt once pt DC from SNF, for a few weeks. Faxed referral packet to [facility]. Following closely for coordination of safe DCP; pt still multiple ays from DC. ADA
--- NOTE | 2017-11-04 14:41 | PC.NURSE ---
Dr Slade aware of patients urinary output of 75cc this shift, no new orders, states just watch it for now.
[2017-11-04] MEDS: LACTATED RINGERS 1,000 ML 42 ML IV (15:53)
--- NOTE | 2017-11-04 17:15 | P.OP_ITS ---
Operative Date/Time/Diagnoses - Date of procedure: 11/04/17 Time of procedure: 16:12 Pre-op diagnosis: left femoral neck fracture Post-op diagnosis: same Procedure & Clinicians Procedure: left femoral neck close reduction internal fixation with cannulated screws Same procedure as scheduled: Yes Indications: Ms. Pedersen is a 82 yo F who had a fall from standing sustained left femoral neck fx. patient was admitted to the inpatient hospital. After discussing risks and benefits of treatment options patient with patient's next of kin, surgery was scheduled. Surgeon: Jatinder Glaser Click Yes if Unassisted: Yes Anesthesia Type: General Operative Notes Closure Type: primary Specimen(s): none sent Implants & Drains: 7.3 mm cannulated screws x3 Applied: catheter Estimated Blood Loss (mL): 50 Blood products transfused: none Procedure in detail: Patient was seen in the preoperative area. Risks and benefits of the surgery was discussed with the patient. Informed consent was obtained from the patient and placed in the chart. Surgical site was marked. Patient was taken to the operative room. General anesthesia was administered. Prophylactic antibiotic was given to the patient less than 30 min before the incision was made. Patient was placed into a supine position on the fracture table. Patient's hip was then prepped and draped in the sterile fashion. Time- out was performed at this time. Using the fracture table, a closed reduction maneuver was performed to the left femoral neck fracture. This was done by distracting internally rotating and adducting the left hip. After the fracture reduction was completed and confirmed with AP and lateral C-arm imaging, Patient's hip was then prepped and draped in the sterile fashion. A 2 in incision just proximal to the greater trochanter was made on the lateral aspect of the patient's hip. Guidewire for the 7.3 mm cannulate screws was inserted through the incision onto the greater trochanter. The guidewire was driven into the femoral head through the femoral neck using power drill and confirmed with AP and lateral C-arm imaging. Two additional guidewires was driven through the lateral cortex of the femur into the femoral head and confirmed with AP and lateral C-arm imaging. Total 3 guidewires was placed. Depth gauge was used to measure the length of the cannulated screws. Two 80 mm screws and one 75 mm screw was placed after drilling the lateral cortex with a cannulated drill. The screws were placed into the proximal femur by hand. All 3 screws had excellent purchase. After all the hardware was placed, AP and lateral C-arm imaging was used to confirm placement of the hardware and reduction of the fracture. Good placement of the hardware and good reduction of the fracture was confirmed. The wound was then irrigated with sterile normal saline. The deep fascia was closed with 1-0 Vicryl, subcutaneous tissue was closed with 2-0 Vicryl and skin was closed with skin nai. Sterile dressing was applied the patient's skin and patient was woken up from anesthesia and transferred to recovery room stable condition. Complications: none Condition: stable Disposition: PACU Plan for aftercare: Admit to inpatient hospital
[2017-11-04] MEDS: CEFAZOLIN 1 GM VIAL IV (17:17)
--- NOTE | 2017-11-04 17:33 | SUR.PHASEI ---
Returned from surgery without SCDs that were quiuckly added in PACU. Oral airway in place with some noise heard around airway and supplemental O2 needed. BPs low and per Dr Ngo will keep fluids open until bag LTC is 500.
[2017-11-04] MEDS: LACTATED RINGERS 1,000 ML 100 ML IV (19:20)
[2017-11-04] MEDS: OXYCODONE/ACETAMINOPHEN 5/325 TABLET 1 TAB PO (20:30)
--- NOTE | 2017-11-04 21:51 | PC.NURSE ---
PATIENT IS RESTING QUIETLY NOW, STARTED HER ON PO PAIN MEDICATION x1 PERCOCET TOOK WITHOUT DIFFICULTY WITH APPLE SAUCE.SCDS BILATJARROD PATENT,3-4L NASAL CANNULA TO KEEP O2 MID 90'S.BED ALARM ON
[2017-11-05] VITALS (14 sets, daily range): BP systolic 108–126; BP diastolic 67–86; PULSE 93–124; RESP 12–20; TEMP 35.9–36.6; O2SAT 90–100
[2017-11-05] MEDS: CEFAZOLIN 2 GM/100 ML FROZ.PIGGY IV ×2 (00:32→08:11)
[2017-11-05] MEDS: LACTATED RINGERS 1,000 ML 100 ML IV (05:36)
[2017-11-05] MEDS: OXYCODONE/ACETAMINOPHEN 5/325 TABLET 1 TAB PO ×2 (06:18→18:12)
--- NOTE | 2017-11-05 11:33 | PT.IIE ---
Current Diagnoses Hypothyroidism, unspecified (11/03/17) Unspecified dementia without behavioral disturbance (11/03/17) Ischemic cardiomyopathy (11/03/17) Unspecified atrial fibrillation (11/03/17) Heart failure, unspecified (11/03/17) Repeated falls (11/03/17) Fracture of unspecified part of neck of left femur, initial encounter for closed fracture (11/03/17) Surgery Performed Operation Date: 11/04/17 14:15 Actual Procedures p ORIF Hip/Cannulated Screws(Left) - Jatinder Glaser MD Medical History (Last Updated 11/03/17 @ 10:38 by Joey Slade MD) Closed fracture of neck of left femur (Acute) Atrial fibrillation (Chronic) Dementia (Chronic) Ischemic cardiomyopathy (Acute) Coronary artery disease (Chronic) Gout (Chronic) Hypothyroid (Chronic) Physical Therapy Inpatient Evaluation/Re-Eval M1 PT/OT-IP Prior Functional Status Start: 11/05/17 08:43 Freq: NEEDED Status: Active Protocol: Document 11/05/17 09:29 RS (Rec: 11/05/17 10:59 RS [id number]) Medical Review Prior Functional Status Medical History Reviewed Yes Communication unknown severity of cognitive impairment related to dementia . Mobility and Gait pt reports using a FWW, says son only helps her with stairs , doesn't drive, denies any other recent falls. Social History Household Members children Living Arrangements House Number of Floors (Floors) One Floor Number of Stairs To Enter/Railing? a few [place] w/ 1 rail. Home Equipment Front Wheel Walker Additional Social History Comment Pt unable to answer questions home home set or equipment other than she uses a walker. M2 PT-IP Current Condition Start: 11/05/17 08:43 Freq: NEEDED Status: Active Protocol: Document 11/05/17 09:29 RS (Rec: 11/05/17 11:33 RS [id number]) Physical Therapy Current Condition Current Condition Evaluation Date 11/05/17 Treatment Diagnosis L hip ORIF w/ cannulated screws s/p GLF Weight Bearing Status Weight Bearing Status Weight Bear as Tolerated M3 PT-IP Subjective Start: 11/05/17 08:43 Freq: NEEDED Status: Active Protocol: Document 11/05/17 09:29 RS (Rec: 11/05/17 11:33 RS [id number]) Subjective Physical Therapy Visit Type Type Initial Evaluation Visit Start Time 08:43 Visit Stop Time 09:29 Total Visit Minutes 46 Physical Therapy Visit Comments Patient/Caregiver Goals go to the bathroom unable to state any other goals Therapy Pain Assessment Pain When Pain Assessed During Mobility Pain Present Pain Present Pain Reported Location Left Hip Scale Used NorwoodYohana (Faces) Pain Behaviors Calling Out Facial Grimacing Moaning Wincing Pain Management Techniques Apply Cold Modification of Treatment Re-positioning Timing of Activity with Medications M4 PT-IP Mobility and Gait Start: 11/05/17 08:43 Freq: NEEDED Status: Active Protocol: Document 11/05/17 09:29 RS (Rec: 11/05/17 11:33 RS [id number]) PT-Bed Mobility Assessment Supine to Sit Supine to Sit Maximum Assistance 1 Person Assistance Head of Bed Elevated Sit to Supine Sit to Supine Moderate Assistance 1 Person Assistance Scooting Scooting to Edge of Bed Maximum Assistance Scooting Up and Down in Bed Dependent PT-Transfer Assessment Sit to and From Stand Sit to and from Stand Maximum Assistance 2 Person Assistance Use of Upper Extremities Equipment Transfer Assistive Device Bed Rail Front Wheeled Walker Comments Mobility Comments Pt needing to go very slowly transitioning to EOB, 1-2 inches at a time for each leg, lots of encouragement. Pt unable to stand all the way up from EOB, able to get about half way but then sits back down, reports too much pain. Gait Assessment Comments Gait Comments not appropriate to assess. Stair Climbing Assessment Comments Stair Climbing Comments not appropriate to assess. PT-Balance Assessment Sitting Balance and Reactions Static Sitting Balance Ability Fair Dynamic Sitting Balance Ability Fair Standing Balance and Reactions Static Standing Balance Ability Poor Dynamic Standing Balance Ability Poor M5 PT-IP Objective Assessments Start: 11/05/17 08:43 Freq: NEEDED Status: Active Protocol: Document 11/05/17 09:29 RS (Rec: 11/05/17 11:33 RS [id number]) Orientation Orientation/Cognition Level of Alertness Confusional State Orientation Name Situation Safety Awareness Decreased Safety Awareness Gross Range of Motion Upper Extremity ROM Assessment Within Functional Limits Lower Extremity ROM Assessment Bilaterally Impaired Impairments Pt unable to move through PROM in either hip while in bed, LLE limited by pain, RLE pt denies pain but is almost rigid. Pt did not tolerate knee ROM in supine but was able to get to sitting EOB with feet on floor. Strength Upper Extremity Strength Assessment Within Functional Limits Lower Extremity Strength Assessment Bilaterally Impaired Comments Strength Comments not formally tested, pt in too much pain and not following instructions well enough to participate in testing, functionally pt is quite weak in BLE, unable to get to standing. Muscle Tone Comments Muscle Tone Comments Pt's R hip is quite rigid, unclear if this is muscular or joint related. Likely not related to tone though other than general guarding. M6 PT-IP Treatment Start: 11/05/17 08:43 Freq: NEEDED Status: Active Protocol: Document 11/05/17 09:29 RS (Rec: 11/05/17 11:33 RS [id number]) Physical Therapy Treatment Exercises Exercises Ankle Pumps Education Education Provided Precautions Weight Bearing Status Post-Op Packet Safety M7 PT-IP Assessment and Plan Start: 11/05/17 08:43 Freq: NEEDED Status: Active Protocol: Document 11/05/17 09:29 RS (Rec: 11/05/17 11:33 RS [id number]) PT Summary Assessment and Plan Potential Rehabilitation Potential Fair Status of Condition at Evaluation Evolving Summary Impairments Pain ROM Strength Balance Cognition Bed Mobility Transfers Gait Activity Tolerance Progress Towards Goals Slow Progress due to Pain Slow Progress - Other Assessment Summary Pt presents with significant ROM/strength deficits s/p L hip ORIF that are contributing to impairments in all mobility and mobility-related ADLs. Pt also has the additional complication of cognitive impairment that is currently slowing pt's retention of new information. Pt has potential for functional improvement and will benefit from ongoing acute and then subacute skilled therapies at a SNF prior to considering a return to home. Goals Bed Mobility Goal Minimal Assistance Transfer Goal Minimal Assistance Front Wheeled Walker Gait Goal Minimal Assistance Front Wheel Walker Gait Distance 25 Days to Meet Goals 3 Frequency of Treatment Frequency Of Treatment Twice a Day Treatment Plan Physical Therapy Treatment Plan Bed Mobility Training Transfer Training Gait Training Therapeutic Exercise Balance Retraining Post Op Education Discharge Planning Other Recommendations and Next Treatment bed mob and transfers Focus Recommendations To Nursing Amount of Assist Needed Mechanical Lift Discharge Recommendations PT Discharge Recommendations SNF Rehab Provider Visit Care Team Role Provider Type Celeste Wood DO Primary Care Provider Physician Specialty: Family Practice Alfonzo Falcon MD Family Provider Physician Specialty: Family Practice Josue Melendez DO Emergency Provider Physician Specialty: Emergency Medicine Joselito Pedraza MD Admit Provider Physician Attending Provider Specialty: Internal Medicine
--- NOTE | 2017-11-05 11:47 | P.PN_ITS ---
Subjective Date Patient Seen: 11/05/17 Time Patient Seen: 11:44 Interval history: No new complaints today Exam Vital Signs (past 8 hours): Vital Signs - 8 hr 3 11/05/17 05:11 11/05/17 07:11 11/05/17 10:27 Temperature 97.6 F 97.6 F Pulse Rate 99 H 104 H Respiratory Rate 16 12 Blood Pressure 126/77 H 113/82 H Pulse Oximetry 95 97 96 Pulse Oximetry 96 Fraction of Inspired Oxygen 2 Oxygen Delivery Method Nasal Cannula Oxygen Flow Rate 4 Narrative Exam Narrative: Doing well more awake today had surgery yesterday Lungs are clear Heart regular rhythm HEENT exam unremarkable Abdomen soft Lower extremities trace edema Neuro exam confused but pleasant no focal deficits Objective Labs Result Diagrams: 11/03/17 04:10 11/03/17 04:10 Labs: Laboratory Results - last 24 hr 11/03/17 11/04/17 04:20 11:10 PT 24.4 H INR 2.3 H Blood Type A Positive Antibody Screen Negative Assessment & Plan Plan: Plan: One. Hip fracture status postoperative management November 04 status post surgical intervention 2. Chronic AFib on chronic warfarin FFP total 4 units given prior to surgery 3. Hypothyroid 4. History of coronary disease no signs of ischemia 5. History of ischemic cardiomyopathy she is having some fluid overload I think plan to give her a load of Lasix today could decrease her fluid she is still not eating very well 6. DVT prophylaxis place her on Lovenox postoperatively
[2017-11-05] MEDS: FUROSEMIDE 20 MG/2 ML VIAL IV (12:01)
[2017-11-05] MEDS: ACETAMINOPHEN 325 MG TABLET 650 MG PO (12:03)
[2017-11-05] MEDS: ONDANSETRON 4 MG ODT PO (12:04)
--- NOTE | 2017-11-05 15:28 | PT.IPTN ---
Current Diagnoses Hypothyroidism, unspecified (11/03/17) Unspecified dementia without behavioral disturbance (11/03/17) Ischemic cardiomyopathy (11/03/17) Unspecified atrial fibrillation (11/03/17) Heart failure, unspecified (11/03/17) Repeated falls (11/03/17) Fracture of unspecified part of neck of left femur, initial encounter for closed fracture (11/03/17) Surgery Performed Operation Date: 11/04/17 14:15 Actual Procedures p ORIF Hip/Cannulated Screws(Left) - Jatinder Glaser MD Physical Therapy Treatment Note M2 PT-IP Current Condition Start: 11/05/17 08:43 Freq: NEEDED Status: Active Protocol: Document 11/05/17 09:29 RS (Rec: 11/05/17 11:33 RS [id number]) Physical Therapy Current Condition Current Condition Evaluation Date 11/05/17 Treatment Diagnosis L hip ORIF w/ cannulated screws s/p GLF Weight Bearing Status Weight Bearing Status Weight Bear as Tolerated M3 PT-IP Subjective Start: 11/05/17 08:43 Freq: NEEDED Status: Active Protocol: Document 11/05/17 14:47 RS (Rec: 11/05/17 15:28 RS [id number]) Subjective Physical Therapy Visit Type Type Treatment Note Visit Start Time 14:09 Visit Stop Time 14:47 Total Visit Minutes 38 Physical Therapy Visit Comments Patient Comments Pt doesn't remember this newspaper writer from the AM PT session, doesn't remember getting up to EOB. However, pt is quite willing to attempt to get up again this session. Patient/Caregiver Goals use the bathroom Therapy Pain Assessment Pain When Pain Assessed During Mobility Pain Present Pain Present Pain Reported Location Left Hip Scale Used [place]-Gonzáles (Faces) Pain Behaviors Calling Out Facial Grimacing Moaning Wincing Pain Management Techniques Modification of Treatment Re-positioning Timing of Activity with Medications M4 PT-IP Mobility and Gait Start: 11/05/17 08:43 Freq: NEEDED Status: Active Protocol: Document 11/05/17 14:47 RS (Rec: 11/05/17 15:28 RS [id number]) PT-Bed Mobility Assessment Supine to Sit Supine to Sit Maximum Assistance 1 Person Assistance Head of Bed Elevated Scooting Scooting to Edge of Bed Maximum Assistance PT-Transfer Assessment Sit to and From Stand Sit to and from Stand Maximum Assistance 2 Person Assistance Use of Upper Extremities Equipment Transfer Assistive Device Gait Belt Front Wheeled Walker Transfers Transfer Destination Chair Transfer Technique Stand Step Pivot Transfer Ability Level of Assist Maximum Assistance 2 Person Assistance Use of Upper Extremities Comments Mobility Comments Pt able to move BLE a little bit more than previous session but still requiring max A for sup>sit. Pt able to get all the way to standing with 2person assist with FWW. Once standing pt tending to lean backwards, needs a lot of assist to keep body forward even with verbal and tactile cues. Half way through transfer pt's legs starting to give out, unable to stay fully upright. Gait Assessment Comments Gait Comments not appropriate to assess. Stair Climbing Assessment Comments Stair Climbing Comments not appropriate to assess. PT-Balance Assessment Sitting Balance and Reactions Static Sitting Balance Ability Good Dynamic Sitting Balance Ability Fair Standing Balance and Reactions Static Standing Balance Ability Poor Dynamic Standing Balance Ability Poor Device Used FWW M5 PT-IP Objective Assessments Start: 11/05/17 08:43 Freq: NEEDED Status: Active Protocol: Document 11/05/17 09:29 RS (Rec: 11/05/17 11:33 RS [id number]) Orientation Orientation/Cognition Level of Alertness Confusional State Orientation Name Situation Safety Awareness Decreased Safety Awareness Gross Range of Motion Upper Extremity ROM Assessment Within Functional Limits Lower Extremity ROM Assessment Bilaterally Impaired Impairments Pt unable to move through PROM in either hip while in bed, LLE limited by pain, RLE pt denies pain but is almost rigid. Pt did not tolerate knee ROM in supine but was able to get to sitting EOB with feet on floor. Strength Upper Extremity Strength Assessment Within Functional Limits Lower Extremity Strength Assessment Bilaterally Impaired Comments Strength Comments not formally tested, pt in too much pain and not following instructions well enough to participate in testing, functionally pt is quite weak in BLE, unable to get to standing. Muscle Tone Comments Muscle Tone Comments Pt's R hip is quite rigid, unclear if this is muscular or joint related. Likely not related to tone though other than general guarding. M6 PT-IP Treatment Start: 11/05/17 08:43 Freq: NEEDED Status: Active Protocol: Document 11/05/17 09:29 RS (Rec: 11/05/17 11:33 RS [id number]) Physical Therapy Treatment Exercises Exercises Ankle Pumps Education Education Provided Precautions Weight Bearing Status Post-Op Packet Safety M7 PT-IP Assessment and Plan Start: 11/05/17 08:43 Freq: NEEDED Status: Active Protocol: Document 11/05/17 14:47 RS (Rec: 11/05/17 15:28 RS [id number]) PT Summary Assessment and Plan Potential Rehabilitation Potential Fair Status of Condition at Evaluation Evolving Summary Impairments Pain ROM Strength Balance Cognition Bed Mobility Transfers Gait Activity Tolerance Progress Towards Goals Slow Progress due to Pain Slow Progress - Other Assessment Summary Pt able to tolerate more this session though still quite confused. Despite improvement pt is still significantly below functional baseline. Continue to recommend pt discharge to SNF for rehab. Goals Bed Mobility Goal Minimal Assistance Transfer Goal Minimal Assistance Front Wheeled Walker Gait Goal Minimal Assistance Front Wheel Walker Gait Distance 25 Days to Meet Goals 3 Frequency of Treatment Frequency Of Treatment Twice a Day Treatment Plan Physical Therapy Treatment Plan Bed Mobility Training Transfer Training Gait Training Therapeutic Exercise Balance Retraining Post Op Education Discharge Planning Other Recommendations and Next Treatment bed mob and transfers Focus Recommendations To Nursing Amount of Assist Needed Mechanical Lift Discharge Recommendations PT Discharge Recommendations SNF Rehab
--- NOTE | 2017-11-05 16:30 | CM.DPC ---
DCP Cont: Met w/pt this afternoon, very briefly, pt's eyes open and sitting up for the first time this BUILD MANAGER has seen. Explained SW role. Family arrived and this BUILD MANAGER requested to speak w/pt alone briefly. Asked pt if everything was working out well at home? Pt says as far as I know. Asked who takes care of her and pt states my son. Which son? Freddie I think. Asked pt if she feels safe at home oh yes. Pt says she wants to go back home now. Then asked pt if she has ever been threatened physically or verbally by family, pt says no. Pt then tells me there is something that has fallen that I need to warehouse order picker, when asked to elaborate, pt explains I dropped an orange pencil on the ground. Updated RN Gita re above conversation. Pt has had Tylenol today for pain control. [facility] stating that pt has been accepted and to keep them posted re DC date. LM attempting to reach Lu today; informed them its POD#1 and pt will likely be here another 24-48 hrs. ADA
--- NOTE | 2017-11-05 16:49 | PC.NURSE ---
Patient is resting peacefully in chair. Patient states she needs to have a BM, Aid and this nurse assisted patient to [facility] via joyce lift but patient stated once on commode that she has no desire to have a BM after all. Patient is a&o to self, place and time of day. Denies any pain at this time but does reports feeling dizzy. Kong in place, patent and draining bertha clear urine. LSC but dem. HR irreg. Pacer is present and visable however patient cont. to be in Afib. w/ regularity pacing. POD #1, drg. to site is C.D.I. CMS intact, do visable edema noted, brisk cap refill to BLE. Call light w/in reach, chair reclined.
[2017-11-05] MEDS: LACTATED RINGERS 1,000 ML 50 ML IV (20:55)
[2017-11-06] VITALS (12 sets, daily range): BP systolic 98–120; BP diastolic 67–79; PULSE 108–129; RESP 14–20; TEMP 35.9–36.4; O2SAT 84–99
--- NOTE | 2017-11-06 05:32 | PC.NURSE ---
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 States name, , [facility], Lizette, May,.., I fell, you're taking care of me. Denied pain, monitored throughout shift. Pt had facial grimacing with reposition at 0435, settled once not lying on left hip so far. Left hip gauze/tegaderm dressing CDI. Ice placed on/off throughout night. PPP, trace edema noted. Able to instruct with much prompting pt to use incentive spirometer, telegraphic typewriter mechanic held device, pt able to do 6 short breaths, 2 of them to 500. IVF remained infusing to right AC PIV. Kong insitu draining bertha urine with sediment, approx 125mls.
[2017-11-06 05:56] LABS: INR 1.9 (0.9-1.3); Prothrombin Time 20.2 SECONDS (10.1-12.7)
[2017-11-06 06:05] LABS: BUN Creatinine Ratio 32.2 (6-22); Blood Urea Nitrogen 29 mg/dL (7-17); Calcium 8.4 mg/dL (8.4-10.2); Carbon Dioxide 32 mmol/L (22-32); Chloride 100 mmol/L (98-107); Estimated Glomerular Filt Rate 59.8 mL/min (>60); Glucose 100 mg/dL (80-110); HEMOLYSIS < 15 (0-50); Potassium 3.8 mmol/L (3.4-5.1); Sodium 140 mmol/L (137-145)
[2017-11-06 06:06] LABS: Add Manual Diff / Slide Review NO; Basophils Percent Auto 0.3 % (0-2); Eosinophils Percent Auto 2.2 % (2-4); Hemoglobin 14.2 g/dL (12.0-16.0); Lymphocytes Percent Auto 20.9 % (25-40); Mean Corpuscular HGB Conc 33.1 % (30-36); Mean Corpuscular Hemoglobin 31.3 PG (26-34); Mean Corpuscular Volume 94.6 fL (80-100); Monocytes Percent Auto 12.9 % (3-14); Neutrophils Absolute Auto 6800 /uL (3000-5900); Neutrophils Percent Auto 63.7 % (50-75); Platelet Count 194 X10^3/uL (150-400); Red Blood Cell Count 4.55 X10^6/uL (4.0-5.2); Red Cell Distribution Width 17.8 % (11.6-14.8); White Blood Cell Count 10.6 X10^3/uL (4.5-11.0)
[2017-11-06] MEDS: ENOXAPARIN 40 MG/0.4 ML SYRINGE SUBCUT (08:35)
[2017-11-06] MEDS: ACETAMINOPHEN 325 MG TABLET 650 MG PO (08:36)
[2017-11-06] MEDS: ONDANSETRON 4 MG ODT PO (08:36)
--- NOTE | 2017-11-06 10:47 | PT.IPTN ---
Current Diagnoses Hypothyroidism, unspecified (11/03/17) Unspecified dementia without behavioral disturbance (11/03/17) Ischemic cardiomyopathy (11/03/17) Unspecified atrial fibrillation (11/03/17) Heart failure, unspecified (11/03/17) Repeated falls (11/03/17) Fracture of unspecified part of neck of left femur, initial encounter for closed fracture (11/03/17) Surgery Performed Operation Date: 11/04/17 14:15 Actual Procedures p ORIF Hip/Cannulated Screws(Left) - Jatinder Glaser MD Physical Therapy Treatment Note M2 PT-IP Current Condition Start: 11/05/17 08:43 Freq: NEEDED Status: Active Protocol: Document 11/05/17 09:29 RS (Rec: 11/05/17 11:33 RS [id number]) Physical Therapy Current Condition Current Condition Evaluation Date 11/05/17 Treatment Diagnosis L hip ORIF w/ cannulated screws s/p GLF Weight Bearing Status Weight Bearing Status Weight Bear as Tolerated M3 PT-IP Subjective Start: 11/05/17 08:43 Freq: NEEDED Status: Active Protocol: Document 11/06/17 10:35 [facility] (Rec: 11/06/17 10:44 [facility] [id number]) Subjective Physical Therapy Visit Type Type Treatment Note Visit Start Time 10:15 Visit Stop Time 10:35 Total Visit Minutes 20 Number of MANAGER INTERNET Visits 0 Physical Therapy Visit Comments Patient Comments Yelena responds yes to PT this am, she had just had a bed bath prior to PT Patient/Caregiver Goals use the bathroom Therapy Pain Assessment Pain When Pain Assessed During Mobility Pain Present Pain Present Pain Reported Location Left Hip Scale Used [place] (Faces) Pain Behaviors Calling Out Facial Grimacing Moaning Wincing Pain Management Techniques Modification of Treatment Re-positioning Timing of Activity with Medications M4 PT-IP Mobility and Gait Start: 11/05/17 08:43 Freq: NEEDED Status: Active Protocol: Document 11/06/17 10:44 [facility] (Rec: 11/06/17 10:47 [facility] [id number]) PT-Bed Mobility Assessment Supine to Sit Supine to Sit Maximum Assistance 1 Person Assistance Head of Bed Elevated Scooting Scooting to Edge of Bed Maximum Assistance PT-Transfer Assessment Sit to and From Stand Sit to and from Stand Maximum Assistance 2 Person Assistance Use of Upper Extremities Equipment Transfer Assistive Device Gait Belt Front Wheeled Walker Transfers Transfer Destination Chair Transfer Technique Mechanical Lift Transfer Ability Level of Assist Maximum Assistance 2 Person Assistance Use of Upper Extremities Comments Mobility Comments pt requiring max A x 2 for transfers and to stand at bedside. She was unable to fully weightbear and couldn't lean forward to take weight. Over head lift was used for transfer to bedside chair Gait Assessment Comments Gait Comments not appropriate to assess. PT-Balance Assessment Sitting Balance and Reactions Static Sitting Balance Ability Good Dynamic Sitting Balance Ability Fair Standing Balance and Reactions Static Standing Balance Ability Poor Dynamic Standing Balance Ability Poor Device Used FWW M5 PT-IP Objective Assessments Start: 11/05/17 08:43 Freq: NEEDED Status: Active Protocol: Document 11/05/17 09:29 RS (Rec: 11/05/17 11:33 RS [id number]) Orientation Orientation/Cognition Level of Alertness Confusional State Orientation Name Situation Safety Awareness Decreased Safety Awareness Gross Range of Motion Upper Extremity ROM Assessment Within Functional Limits Lower Extremity ROM Assessment Bilaterally Impaired Impairments Pt unable to move through PROM in either hip while in bed, LLE limited by pain, RLE pt denies pain but is almost rigid. Pt did not tolerate knee ROM in supine but was able to get to sitting EOB with feet on floor. Strength Upper Extremity Strength Assessment Within Functional Limits Lower Extremity Strength Assessment Bilaterally Impaired Comments Strength Comments not formally tested, pt in too much pain and not following instructions well enough to participate in testing, functionally pt is quite weak in BLE, unable to get to standing. Muscle Tone Comments Muscle Tone Comments Pt's R hip is quite rigid, unclear if this is muscular or joint related. Likely not related to tone though other than general guarding. M6 PT-IP Treatment Start: 11/05/17 08:43 Freq: NEEDED Status: Active Protocol: Document 11/06/17 10:35 [facility] (Rec: 11/06/17 10:44 [facility] [id number]) Physical Therapy Treatment Exercises Exercises Ankle Pumps Heel Slides Education Education Provided Precautions Weight Bearing Status Post-Op Packet Safety Other Treatments Other Treatment Performed bed mobility to edge of bed with Max Ax2, sit-stand with max A x2, transfer to bedside chair with joyce lift M7 PT-IP Assessment and Plan Start: 11/05/17 08:43 Freq: NEEDED Status: Active Protocol: Document 11/06/17 10:35 [facility] (Rec: 11/06/17 10:44 [facility] [id number]) PT Summary Assessment and Plan Potential Rehabilitation Potential Fair Status of Condition at Evaluation Evolving Summary Impairments Pain ROM Strength Balance Cognition Bed Mobility Transfers Gait Activity Tolerance Progress Towards Goals Slow Progress due to Pain Slow Progress - Other Assessment Summary Pt able to tolerate sit-stand this session with max A x2. She stood for a small duration with fww and max A while sling was placed for transfer. She is still quite confused. Despite improvement pt is still significantly below functional baseline. Continue to recommend pt discharge to SNF for rehab. Goals Bed Mobility Goal Minimal Assistance Transfer Goal Minimal Assistance Front Wheeled Walker Gait Goal Minimal Assistance Front Wheel Walker Gait Distance 25 Days to Meet Goals 3 Frequency of Treatment Frequency Of Treatment Twice a Day Treatment Plan Physical Therapy Treatment Plan Bed Mobility Training Transfer Training Gait Training Therapeutic Exercise Balance Retraining Post Op Education Discharge Planning Other Recommendations and Next Treatment bed mob and transfers Focus Recommendations To Nursing Amount of Assist Needed Mechanical Lift Discharge Recommendations PT Discharge Recommendations SNF Rehab
--- NOTE | 2017-11-06 13:29 | PC.NURSE ---
1330 Pt remains confused this shift, Pt has periods of being bright and alert, then sleepy. Pt sats on r/a while awae are 94-96%. drop to 90-91 while sleeping. O2 at 1LNC on when sats drop PRN. Kong remains in place, Pt unable to stand up, seems to have confusion regarding inst to stand, even with assist of 2 people. Family at bedside. Pt is eating, but needs set up & encouragement. Pt is calm.
[2017-11-06] MEDS: OXYCODONE/ACETAMINOPHEN 5/325 TABLET 1 TAB PO ×2 (13:57→21:20)
[2017-11-06] MEDS: LACTATED RINGERS 1,000 ML 50 ML IV (14:03)
--- NOTE | 2017-11-06 14:22 | P.PN_ITS ---
Subjective Date Patient Seen: 11/06/17 Time Patient Seen: 14:21 Interval history: Still with pain in the hip this has been limiting her ability to work with physical therapy Exam Vital Signs (past 8 hours): Vital Signs - 8 hr 3 11/06/17 07:00 11/06/17 11:48 Temperature 96.7 F L 97.6 F Pulse Rate 119 H 129 H Respiratory Rate 14 18 Blood Pressure 117/77 120/79 Pulse Oximetry 94 99 Pulse Oximetry 99 Fraction of Inspired Oxygen 2 Oxygen Delivery Method Nasal Cannula Oxygen Flow Rate 1 Narrative Exam Narrative: Resting comfortably HEENT exam unremarkable Neck is supple Lungs clear Heart regular rhythm Abdomen soft nontender Neuro exam confused at baseline no other focal deficits Skin warm and dry Objective Labs Result Diagrams: 11/06/17 05:42 11/06/17 05:42 Labs: Laboratory Results - last 24 hr 11/06/17 11/06/17 11/06/17 05:42 05:42 05:42 WBC 10.6 RBC 4.55 Hgb 14.2 Hct 43.0 MCV 94.6 MCH 31.3 MCHC 33.1 RDW 17.8 H Plt Count 194 Neut % (Auto) 63.7 Lymph % (Auto) 20.9 L [place] % (Auto) 12.9 Eos % (Auto) 2.2 Baso % (Auto) 0.3 Neut # (Auto) 6800 H PT 20.2 H INR 1.9 H Sodium 140 Potassium 3.8 Chloride 100 Carbon Dioxide 32 BUN 29 H Creatinine 0.90 Estimated GFR 59.8 L BUN/Creatinine Ratio 32.2 H Glucose 100 Calcium 8.4 Assessment & Plan Plan: Plan: One. Hip fracture status post operative management November 04 for further management as per ortho 2. Chronic AFib had been on chronic warfarin got FFP 4 units prior to surgery plan to resume Coumadin 3. Hypothyroid stable 4. Coronary artery disease no signs of ongoing ischemia 5. History of ischemic cardiomyopathy and will squid stop her IV fluids and she seems to be compensated 6. DVT prophylaxis on Lovenox
--- NOTE | 2017-11-06 15:13 | PT.IPTN ---
Current Diagnoses Hypothyroidism, unspecified (11/03/17) Unspecified dementia without behavioral disturbance (11/03/17) Ischemic cardiomyopathy (11/03/17) Unspecified atrial fibrillation (11/03/17) Heart failure, unspecified (11/03/17) Repeated falls (11/03/17) Fracture of unspecified part of neck of left femur, initial encounter for closed fracture (11/03/17) Surgery Performed Operation Date: 11/04/17 14:15 Actual Procedures p ORIF Hip/Cannulated Screws(Left) - Jatinder Glaser MD Physical Therapy Treatment Note M2 PT-IP Current Condition Start: 11/05/17 08:43 Freq: NEEDED Status: Active Protocol: Document 11/06/17 15:00 TMS (Rec: 11/06/17 15:13 TMS [id number]) Physical Therapy Current Condition Current Condition Evaluation Date 11/05/17 Treatment Diagnosis L hip ORIF w/ cannulated screws s/p GLF Weight Bearing Status Weight Bearing Status Weight Bear as Tolerated M3 PT-IP Subjective Start: 11/05/17 08:43 Freq: NEEDED Status: Active Protocol: Document 11/06/17 15:00 TMS (Rec: 11/06/17 15:13 TMS [id number]) Subjective Physical Therapy Visit Type Type Treatment Note Visit Start Time 13:10 Visit Stop Time 13:25 Total Visit Minutes 15 Number of TYPING SECTION CHIEF Visits 1 Physical Therapy Visit Comments Patient Comments Pt. on commode, nursing used lift to get her there. Therapy Pain Assessment Pain When Pain Assessed During Mobility Pain Present Pain Present Pain Reported Location Left Hip Scale Used [place] (Faces) Pain Behaviors Facial Grimacing Moaning M4 PT-IP Mobility and Gait Start: 11/05/17 08:43 Freq: NEEDED Status: Active Protocol: Document 11/06/17 15:00 TMS (Rec: 11/06/17 15:13 TMS [id number]) PT-Bed Mobility Assessment Sit to Supine Sit to Supine Total Assistance PT-Transfer Assessment Sit to and From Stand Sit to and from Stand Moderate Assistance 2 Person Assistance Use of Upper Extremities Equipment Transfer Assistive Device Gait Belt Front Wheeled Walker Orthotic/Prosthetic Devices or Brace: No Transfers Transfer Destination Bed Transfer Technique Mechanical Lift Transfer Ability Level of Assist 2 Person Assistance Comments Mobility Comments Pt. able to sit>stand from commode with Mod-A of 2, stood briefly with FWW while VISUAL MANAGER did pericare. Lift used for transfer commode>bed. Gait Assessment Comments Gait Comments not appropriate to assess. M5 PT-IP Objective Assessments Start: 11/05/17 08:43 Freq: NEEDED Status: Active Protocol: Document 11/05/17 09:29 RS (Rec: 11/05/17 11:33 RS [id number]) Orientation Orientation/Cognition Level of Alertness Confusional State Orientation Name Situation Safety Awareness Decreased Safety Awareness Gross Range of Motion Upper Extremity ROM Assessment Within Functional Limits Lower Extremity ROM Assessment Bilaterally Impaired Impairments Pt unable to move through PROM in either hip while in bed, LLE limited by pain, RLE pt denies pain but is almost rigid. Pt did not tolerate knee ROM in supine but was able to get to sitting EOB with feet on floor. Strength Upper Extremity Strength Assessment Within Functional Limits Lower Extremity Strength Assessment Bilaterally Impaired Comments Strength Comments not formally tested, pt in too much pain and not following instructions well enough to participate in testing, functionally pt is quite weak in BLE, unable to get to standing. Muscle Tone Comments Muscle Tone Comments Pt's R hip is quite rigid, unclear if this is muscular or joint related. Likely not related to tone though other than general guarding. M6 PT-IP Treatment Start: 11/05/17 08:43 Freq: NEEDED Status: Active Protocol: Document 11/06/17 15:00 TMS (Rec: 11/06/17 15:13 TMS [id number]) Physical Therapy Treatment Exercises Exercises Ankle Pumps Heel Slides Other Treatments Other Treatment Performed AA heelslides, hip Abduction. M7 PT-IP Assessment and Plan Start: 11/05/17 08:43 Freq: NEEDED Status: Active Protocol: Document 11/06/17 15:00 TMS (Rec: 11/06/17 15:13 TMS [id number]) PT Summary Assessment and Plan Summary Impairments Pain ROM Strength Balance Cognition Bed Mobility Transfers Gait Activity Tolerance Assessment Summary Pt. able to stand more erect this PM, not ready to attempt steps yet. Frequency of Treatment Frequency Of Treatment Twice a Day Treatment Plan Other Recommendations and Next Treatment bed mob and transfers Focus Recommendations To Nursing Amount of Assist Needed Mechanical Lift Discharge Recommendations PT Discharge Recommendations SNF Rehab
--- NOTE | 2017-11-06 15:39 | PC.NURSE ---
Patient is resting peacefully in bed watching T.V patient. Patient is A&O to self, and place. IVF are running at 50/hr per orders. POD #2, drg. to left hip is a folded gauze and is CDI. Cms intact, PP ++ brisk cap refill. SCD's are currently in place. Though in reports it was noted that patient gets irritated while they are on and pumping. Patient is peaceful at rest and is showing no signs of irritation or agitation r/t SCD's, this nurse will cont. to have patient wear as long as patient can tolerate. Kong in place, patent and draining dark clear urine. Patient denies any pain at this time. VSS. Call light w/in reach, bed in low pos. alarm is active.
[2017-11-06] MEDS: WARFARIN 3 MG TABLET PO (16:35)
[2017-11-07] VITALS (8 sets, daily range): BP systolic 110–133; BP diastolic 72–94; PULSE 101–126; RESP 14–20; TEMP 35.6–36.4; O2SAT 93–100
--- NOTE | 2017-11-07 | DI.RAD.S_ITS ---
PROCEDURE: XR CHEST 1V INDICATIONS: Rales Rt Lung field TECHNIQUE: One view of the chest was acquired. COMPARISON: [facility], CT, THORAX WITHOUT CONTRAST, 02/28/2015, 13:43. [facility], CR, CHEST 2 VIEW, 03/04/2017, 13:49. [facility], CR, XR CHEST 1 VIEW, 04/25/2017, 21:44. [facility], CR, CHEST 1 VIEW, 03/06/2017, 12:20. FINDINGS: Surgical changes and devices: There is a cardiac pacemaker/defibrillator in expected position. Lungs and pleura: Bilateral perihilar infiltrates suspicious for pulmonary edema secondary to congestive heart failure. Trace bilateral effusions. Right basilar opacity may be atelectasis or consolidation. No pneumothorax. Mediastinum: Mediastinal contours appear normal. Heart size is mildly increased. Bones and chest wall: No suspicious bony lesions. Overlying soft tissues appear unremarkable. IMPRESSION: 1. Congestive heart failure. 2. Right basilar opacity may be superimposed pneumonia or atelectasis. Dictated by: Wilfredo Santiago M.D. on 11/07/2017 at 12:18 Approved by: Wilfredo Santiago M.D. on 11/07/2017 at 12:20
[2017-11-07] MEDS: OXYCODONE/ACETAMINOPHEN 5/325 TABLET 1 TAB PO ×3 (02:30→13:57)
[2017-11-07 05:23] LABS: Basophils Percent Auto 0.1 % (0-2); Eosinophils Percent Auto 2.2 % (2-4); Hemoglobin 13.7 g/dL (12.0-16.0); INR 1.7 (0.9-1.3); Lymphocytes Percent Auto 22.8 % (25-40); Mean Corpuscular HGB Conc 32.6 % (30-36); Mean Corpuscular Hemoglobin 30.9 PG (26-34); Mean Corpuscular Volume 94.7 fL (80-100); Monocytes Percent Auto 13.1 % (3-14); Neutrophils Absolute Auto 6200 /uL (3000-5900); Neutrophils Percent Auto 61.8 % (50-75); Platelet Count 179 X10^3/uL (150-400); Prothrombin Time 18.4 SECONDS (10.1-12.7); Red Blood Cell Count 4.43 X10^6/uL (4.0-5.2); Red Cell Distribution Width 17.9 % (11.6-14.8); White Blood Cell Count 10.1 X10^3/uL (4.5-11.0)
[2017-11-07 06:07] LABS: Add Manual Diff / Slide Review SLIDE REVIEW
[2017-11-07 06:08] LABS: Polychromasia 1+
[2017-11-07 06:09] LABS: Anisocytosis 1+
[2017-11-07] MEDS: ENOXAPARIN 40 MG/0.4 ML SYRINGE SUBCUT (09:17)
--- NOTE | 2017-11-07 09:43 | PC.NURSE ---
Addendum entered by Kenrick Rosado R.N. 11/07/17 11:21: Fluids stopped, Tele ordered, home medications not ordered were reviewed with PA. Original Note: No fluids ordered, LR running at 50/hr - clarifying with PA.
[2017-11-07] MEDS: BISOPROLOL 5 MG TABLET 15 MG PO ×2 (12:08→21:30)
--- NOTE | 2017-11-07 12:15 | PM.PN.1 ---
Subjective Date Patient Seen: 11/07/17 Time Patient Seen: 11:15 Interval history: Postop day 3. for ORIF of left femur head fracture. Patient not aware of time or place. Difficult to assess as she is a poor historian. Appears to be in no acute distress and is resting comfortably at this time Exam Vital Signs (past 8 hours): Vital Signs - 8 hr 11/07/17 05:19 11/07/17 07:34 11/07/17 07:40 Temperature 97.5 F L 97.5 F L Pulse Rate 116 H 113 H Respiratory Rate 18 14 Blood Pressure 130/94 H 125/81 H Pulse Oximetry 100 100 96 Pulse Oximetry 96 Fraction of Inspired Oxygen 24 Oxygen Delivery Method Nasal Cannula Oxygen Flow Rate 1 Narrative Exam Narrative: Patient has dementia. [facility] Head: normal to inspection Ears: hearing grossly normal bilaterally Face and sinus: normal facial exam Eyes General: appearance normal, both eyes and all related structures Pupils: PERRL Neck Neck: normal visual inspection, trachea midline and supple Chest Chest: normal inspection of the chest Resp Effort & Inspection: normal respiratory effort Auscultation: rales on the left in the mid lung topete and in the lower lung topete Cardio Rate: tachycardic Rhythm: abnormal rhythm (Atrial fibrillation with RVR) GI Inspection: normal to inspection Palpation: soft Other: Nontender Other: Kong catheterization down drain in place draining dark bertha urine Back/Spine/Pelvis Back: normal to inspection Skin General: warm Neuro General: alert and awake Other: Confused but at her baseline. No other focal deficits noted Extrem Other: Small 2 x 3 dressing over the left lateral femur area in place dry and intact. Psych Attitude: cooperative Judgment: poor Other: Patient is cooperative with a simple commands. Objective Labs Result Diagrams: 11/07/17 05:04 11/06/17 05:42 Labs: Laboratory Results - last 24 hr 11/07/17 11/07/17 05:04 05:04 WBC 10.1 RBC 4.43 Hgb 13.7 Hct 42.0 MCV 94.7 MCH 30.9 MCHC 32.6 RDW 17.9 H Plt Count 179 Neut % (Auto) 61.8 Lymph % (Auto) 22.8 L [place] % (Auto) 13.1 Eos % (Auto) 2.2 Baso % (Auto) 0.1 Neut # (Auto) 6200 H RBC Morphology Not Reportable Polychromasia 1+ H Anisocytosis 1+ H PT 18.4 H INR 1.7 H Assessment & Plan Plan: Assessment/Plan Narrative: 1. Hip fracture status post operative management November 04 for further management as per ortho. Patient continues to have poor progression in her mobility. Patient was able to sit and stand to the commode. Continue to work with physical therapy. 2. Chronic AFib had been on chronic warfarin got FFP 4 units prior to surgery. Coumadin restarted last evening. Monitor continues to show atrial fibrillation with rapid ventricular response of 110-120. Restarted on her beta-marcie. 3. Hypothyroid stable. Placed back on her home thyroid medication 4. Coronary artery disease no signs of on going ischemia. 5. History of ischemic cardiomyopathy and will stop her IV fluids as she seems to be compensated. Questionable intake status since admission reveals positive 5.7 L fluid balance. Urinary output has decreased and is dark and concentrated. Bed weights are also unreliable. But indicate trend upwards. Chest x-ray reveals bilateral perihilar infiltrates suspicious for pulmonary edema secondary content to congestive heart failure. Trace bilateral effusions. Right basilar opacity may be atelectasis or consolidation. Will start IV Lasix 40 mg t.i.d.. We will also supplement potassium orally. Repeat BMP in morning. 6. DVT prophylaxis on Lovenox bridging back to her routine dose of Coumadin. Will assess INR on Tuesday. Quality VTE Deep Vein Thrombosis/Pulmonary Embolism Present on Admission: No
--- NOTE | 2017-11-07 12:25 | P.PN_ITS ---
Subjective Date Patient Seen: 11/07/17 Time Patient Seen: 11:15 Interval history: Postop day 3. for ORIF of left femur head fracture. Patient not aware of time or place. Difficult to assess as she is a poor historian. Appears to be in no acute distress and is resting comfortably at this time Exam Vital Signs (past 8 hours): Vital Signs - 8 hr 3 11/07/17 05:19 11/07/17 07:34 11/07/17 07:40 Temperature 97.5 F L 97.5 F L Pulse Rate 116 H 113 H Respiratory Rate 18 14 Blood Pressure 130/94 H 125/81 H Pulse Oximetry 100 100 96 Pulse Oximetry 96 Fraction of Inspired Oxygen 24 Oxygen Delivery Method Nasal Cannula Oxygen Flow Rate 1 Narrative Exam Narrative: Patient has dementia. [facility] Head: normal to inspection Ears: hearing grossly normal bilaterally Face and sinus: normal facial exam Eyes General: appearance normal, both eyes and all related structures Pupils: PERRL Neck Neck: normal visual inspection, trachea midline and supple Chest Chest: normal inspection of the chest Resp Effort & Inspection: normal respiratory effort Auscultation: rales on the left in the mid lung topete and in the lower lung topete Cardio Rate: tachycardic Rhythm: abnormal rhythm (Atrial fibrillation with RVR) GI Inspection: normal to inspection Palpation: soft Other: Nontender Other: Kong catheterization down drain in place draining dark bertha urine Back/Spine/Pelvis Back: normal to inspection Skin General: warm Neuro General: alert and awake Other: Confused but at her baseline. No other focal deficits noted Extrem Other: Small 2 x 3 dressing over the left lateral femur area in place dry and intact. Psych Attitude: cooperative Judgment: poor Other: Patient is cooperative with a simple commands. Objective Labs Result Diagrams: 11/07/17 05:04 11/06/17 05:42 Labs: Laboratory Results - last 24 hr 11/07/17 11/07/17 05:04 05:04 WBC 10.1 RBC 4.43 Hgb 13.7 Hct 42.0 MCV 94.7 MCH 30.9 MCHC 32.6 RDW 17.9 H Plt Count 179 Neut % (Auto) 61.8 Lymph % (Auto) 22.8 L [place] % (Auto) 13.1 Eos % (Auto) 2.2 Baso % (Auto) 0.1 Neut # (Auto) 6200 H RBC Morphology Not Reportable Polychromasia 1+ H Anisocytosis 1+ H PT 18.4 H INR 1.7 H Assessment & Plan Plan: Assessment/Plan Narrative: 1. Hip fracture status post operative management November 04 for further management as per ortho. Patient continues to have poor progression in her mobility. Patient was able to sit and stand to the commode. Continue to work with physical therapy. 2. Chronic AFib had been on chronic warfarin got FFP 4 units prior to surgery. Coumadin restarted last evening. Monitor continues to show atrial fibrillation with rapid ventricular response of 110-120. Restarted on her beta- marcie. 3. Hypothyroid stable. Placed back on her home thyroid medication 4. Coronary artery disease no signs of on going ischemia. 5. History of ischemic cardiomyopathy and will stop her IV fluids as she seems to be compensated. Questionable intake status since admission reveals positive 5.7 L fluid balance. Urinary output has decreased and is dark and concentrated. Bed weights are also unreliable. But indicate trend upwards. Chest x-ray reveals bilateral perihilar infiltrates suspicious for pulmonary edema secondary content to congestive heart failure. Trace bilateral effusions. Right basilar opacity may be atelectasis or consolidation. Will start IV Lasix 40 mg t.i.d.. We will also supplement potassium orally. Repeat BMP in morning. 6. DVT prophylaxis on Lovenox bridging back to her routine dose of Coumadin. Will assess INR on Tuesday. Quality VTE Deep Vein Thrombosis/Pulmonary Embolism Present on Admission: No
[2017-11-07] MEDS: SODIUM CHLORIDE 0.9% 250 ML 21 ML IV (13:09)
[2017-11-07] MEDS: FUROSEMIDE 40 MG/4 ML VIAL IV ×2 (13:10→21:28)
[2017-11-07] MEDS: POTASSIUM CHLORIDE 20 MEQ TAB PO ×2 (13:57→18:45)
--- NOTE | 2017-11-07 15:07 | PT.IPTN ---
Addendum entered and electronically signed by Yvonne Ferris, PT 11/07/17 15:20: Correction: In PM session pt was falling asleep in the wheelchair, not in the recliner. Original Note: Physical Therapy Treatment Note This patient was seen three times for physical therapy on 11/07/17. The three treatment sessions have been combined into 1 note. More detail is below, but the summary of each session is as follows: AM1: pt declined to get out of bed but performed bed mobility for repositioning and bed strengthening exercises. Pt less oriented this morning that during previous sessions with this insurance underwriter sales, unable to state where she was or why she was here despite being able to answer these questions on Tuesday. AM2: pt wanting to get up to wheelchair to get out of room but declined to walk. Pt able to get up to wheelchair with 2 person mod A, much better with stepping today but still requiring [id number] cues for sequencing. Most of the assist was to keep pt's body foward (she tends to lean backward), there were even periods that pt was min A x 1 person. PM: pt falling asleep in recliner and needing to get back to bed. Pt needing more assist this time, leaning backward in standing much more forcefully. A supervisor wet pour PT probably wouldn't have been able to counter-balance against her. Despite this, pt able to make it back to back with step by step cues for stepping, then max A x 2 to return to supine. Overall pt is slowly improving with mobility. Anticipate that progression will continue to be slow, but pt does have potential for functional improvement. Continue to recommend pt transition to SNF once medically ready. Physical Therapy Current Condition Current Condition Evaluation Date 11/05/17 Treatment Diagnosis L hip ORIF w/ cannulated screws s/p GLF Weight Bearing Status Weight Bearing Status Weight Bear as Tolerated Subjective Physical Therapy Visit Type Type Treatment Note Visit Start Time 13:39 Visit Stop Time 13:53 Total Visit Minutes 14 Number of HOGSHEAD WRECKER Visits 0 Physical Therapy Visit Comments Patient Comments Pt falling alseep in wheelchair, agreeable to get back into bed. Therapy Pain Assessment Pain When Pain Assessed At Rest Pain Present Pain Present Denied Pain PT-Bed Mobility Assessment Sit to Supine Sit to Supine Maximum Assistance 2 Person Assistance Scooting Scooting Up and Down in Bed Dependent PT-Transfer Assessment Sit to and From Stand Sit to and from Stand Moderate Assistance 2 Person Assistance Use of Upper Extremities Equipment Transfer Assistive Device Gait Belt Front Wheeled Walker Transfers Transfer Destination Bed Transfer Technique Stand Step Pivot Transfer Ability Level of Assist Maximum Assistance 2 Person Assistance Use of Upper Extremities Comments Mobility Comments Pt getting tired by end of the transfer, needing much more assist to keep upright until she was close enough to the bed to sit. Still needed step by step cues. Gait Assessment Comments Gait Comments Pt declined. PT-Balance Assessment Sitting Balance and Reactions Static Sitting Balance Ability Good Dynamic Sitting Balance Ability Fair Standing Balance and Reactions Static Standing Balance Ability Poor Dynamic Standing Balance Ability Poor Device Used FWW Orientation Orientation/Cognition Level of Alertness Confusional State Orientation Name Situation Safety Awareness Decreased Safety Awareness Physical Therapy Treatment Exercises Exercises Ankle Pumps Heel Slides Other Treatments Other Treatment Performed AA heelslides, hip Abduction. PT Summary Assessment and Plan Potential Rehabilitation Potential Good Status of Condition at Evaluation Stable Summary Impairments Pain ROM Strength Balance Cognition Bed Mobility Transfers Gait Activity Tolerance Frequency of Treatment Frequency Of Treatment Twice a Day Treatment Plan Other Recommendations and Next Treatment trial gait with 2-3 person Focus assist? Recommendations To Nursing Amount of Assist Needed Mechanical Lift Discharge Recommendations PT Discharge Recommendations SNF Rehab
--- NOTE | 2017-11-07 15:16 | CM.DPC ---
DCP/continued: Reviewed chart. Received phone call from admit at [facility] they report that they have not yet accepted this patient for admit to their SNF. They are requesting all clinical be faxed including therapy notes. Notified them that all information had been faxed on 11-04-17. Per Admit, they would like updated clinical. Obtained clinical (new/old) and faxed to [facility] per their request. Received vm this afternoon indicating that all information reviewed and that they can accept pending DPOA paperwork? Placed return phone call to [facility] requesting that they speak with patient's son(s) re: the above. Unable to locate this information in EMR or paper chart. Unclear if this has been done. P: [facility] pending acceptance. Will follow up with [facility] on 11-08-17. REINALDO Rivas
[2017-11-07] MEDS: WARFARIN 3 MG TABLET PO (18:45)
[2017-11-07] MEDS: SODIUM CHLORIDE 0.9% FLUSH 10 ML IV (21:30)
[2017-11-08] VITALS (10 sets, daily range): BP systolic 116–136; BP diastolic 82–92; PULSE 96–107; RESP 12–18; TEMP 36.2–37.1; O2SAT 93–100
--- NOTE | 2017-11-08 02:46 | PC.NURSE ---
Addendum entered by Jennifer Banuelos R.N. 11/08/17 05:03: Patient crying/moaning stating she needs to call the police. When asked if she was in pain stated yes. FLACC score 5 so medicated with Percocet. SCD's removed for next hour as per protocol. Original Note: Patient is pleasant but very confused. Knew her name and birthdate but when asked where she is states she is with [facility]. Breath sounds CTA; on 1.5L/min oxygen per NC with sat of 98%. HR irregular; being monitored on telemetry with current rate in 100-120 range. Denies nausea. BT present and abdomen is soft but has not had a BM since 11/02; no prn bowel meds are ordered so with have day RN address with MD. Indwelling catheter is patent but has very little UOP in lizarraga bag at this time but did have 625cc out on previous shift. Dressing to left hip is CDI. Able to lift legs slightly, but not against resistance. SCD's on bilaterally. Fall risk score is high and bed alarm is activated. Needing to be repositioned q2h as not able to turn self. Denies pain.
[2017-11-08] MEDS: FUROSEMIDE 40 MG/4 ML VIAL IV ×2 (04:47→12:30)
[2017-11-08] MEDS: OXYCODONE/ACETAMINOPHEN 5/325 TABLET 1 TAB PO ×2 (04:48→18:48)
[2017-11-08] MEDS: SODIUM CHLORIDE 0.9% FLUSH 10 ML IV ×4 (04:48→20:36)
[2017-11-08 05:32] LABS: BUN Creatinine Ratio 34.3 (6-22); Blood Urea Nitrogen 24 mg/dL (7-17); Calcium 8.5 mg/dL (8.4-10.2); Carbon Dioxide 31 mmol/L (22-32); Chloride 99 mmol/L (98-107); Estimated Glomerular Filt Rate > 60.0 mL/min (>60); Glucose 97 mg/dL (80-110); HEMOLYSIS < 15 (0-50); Potassium 4.4 mmol/L (3.4-5.1); Sodium 140 mmol/L (137-145)
[2017-11-08] MEDS: THYROID, PORK 60 MG TABLET 120 MG PO (05:58)
[2017-11-08] MEDS: ONDANSETRON 4 MG ODT PO (05:58)
--- NOTE | 2017-11-08 09:28 | PC.NURSE ---
Assess- Pt confused this morning. L.hip dressing cdi. Pt repositioned from her side to back at her request. Christian Calvin NP states that patient will b e discharged tomorrow and we will continue to given her lasix for one more day. Ate about 10% of her breakfast and drank orange juice. CMS wnl and ppx2 to lower extremities. Visiting with her son at this time.
[2017-11-08] MEDS: POTASSIUM CHLORIDE 20 MEQ TAB PO (09:41)
[2017-11-08] MEDS: ENOXAPARIN 40 MG/0.4 ML SYRINGE SUBCUT (09:41)
[2017-11-08] MEDS: BISOPROLOL 5 MG TABLET 15 MG PO ×2 (09:41→20:36)
--- NOTE | 2017-11-08 12:02 | PM.PN.1 ---
Subjective Date Patient Seen: 11/08/17 Time Patient Seen: 12:03 Interval history: No acute change in patient's condition in last 24 hr. She appears to be resting comfortably and in no distress. Exam Vital Signs (past 8 hours): Vital Signs - 8 hr 11/08/17 05:03 11/08/17 05:07 11/08/17 08:44 Temperature 97.5 F L 97.1 F L Pulse Rate 105 H 107 H Respiratory Rate 14 12 Blood Pressure 130/92 H 129/88 H Pulse Oximetry 100 100 99 Pulse Oximetry 99 Fraction of Inspired Oxygen 1 Oxygen Delivery Method Nasal Cannula Oxygen Flow Rate 2 Narrative Exam Narrative: Exam Narrative: Patient has dementia. [facility] Head: normal to inspection Ears: hearing grossly normal bilaterally Face and sinus: normal facial exam Eyes General: appearance normal, both eyes and all related structures Pupils: PERRL Neck Neck: normal visual inspection, trachea midline and supple Chest Chest: normal inspection of the chest Resp Effort & Inspection: normal respiratory effort Auscultation: rales on the left lower lung field. Cardio Rate: tachycardic Rhythm: abnormal rhythm (Atrial fibrillation with RVR) GI Inspection: normal to inspection Palpation: soft Other: Nontender Other: Kong catheterization down drain in place draining dark bertha urine Back/Spine/Pelvis Back: normal to inspection Skin General: warm Neuro General: alert and awake Other: Confused but at her baseline. No other focal deficits noted Extrem Other: Small 2 x 3 dressing over the left lateral femur area in place dry and intact. Psych Attitude: cooperative Judgment: poor Other: Patient is cooperative with a simple commands Objective Labs Result Diagrams: 11/07/17 05:04 11/08/17 04:58 Labs: Laboratory Results - last 24 hr 11/08/17 04:58 Sodium 140 Potassium 4.4 Chloride 99 Carbon Dioxide 31 BUN 24 H Creatinine 0.70 Estimated GFR > 60.0 BUN/Creatinine Ratio 34.3 H Glucose 97 Calcium 8.5 Assessment & Plan Plan: Assessment/Plan Narrative: 1. Hip fracture status post operative management November 04 for further management as per ortho. Patient continues to have poor progression in her mobility. Patient was able to sit and stand to the commode. Continue to work with physical therapy. Able to tolerate short ambulation distances and sitting in the chair. 2. Chronic AFib had been on chronic warfarin got FFP 4 units prior to surgery. Coumadin restarted 2 days ago. Monitor continues to show atrial fibrillation with rapid ventricular response of less than 110. Continue on her beta-marcie. 3. Hypothyroid stable. Placed back on her home thyroid medication 4. Coronary artery disease no signs of on going ischemia. 5. History of ischemic cardiomyopathy and will stop her IV fluids as she seems to be compensated. Questionable intake status since admission reveals positive 5.7 L fluid balance. Chest x-ray reveals bilateral perihilar infiltrates suspicious for pulmonary edema secondary content to congestive heart failure. Trace bilateral effusions. Right basilar opacity may be atelectasis or consolidation. She was started on IV Lasix 40 mg t.i.d.. With adequate diuresis of more than 2300 mL since yesterday afternoon. Her lungs are more clear this morning. There is still a trace of dependent edema. I will taper the IV Lasix to b.i.d.. Repeat BMP in morning. 6. DVT prophylaxis on Lovenox bridging back to her routine dose of Coumadin. Will assess INR on Tuesday. 7. Disposition: If she continues to improve tomorrow she will be transferred to [facility]. Quality VTE Deep Vein Thrombosis/Pulmonary Embolism Present on Admission: No
--- NOTE | 2017-11-08 12:09 | P.PN_ITS ---
Subjective Date Patient Seen: 11/08/17 Time Patient Seen: 12:03 Interval history: No acute change in patient's condition in last 24 hr. She appears to be resting comfortably and in no distress. Exam Vital Signs (past 8 hours): Vital Signs - 8 hr 3 11/08/17 05:03 11/08/17 05:07 11/08/17 08:44 Temperature 97.5 F L 97.1 F L Pulse Rate 105 H 107 H Respiratory Rate 14 12 Blood Pressure 130/92 H 129/88 H Pulse Oximetry 100 100 99 Pulse Oximetry 99 Fraction of Inspired Oxygen 1 Oxygen Delivery Method Nasal Cannula Oxygen Flow Rate 2 Narrative Exam Narrative: Exam Narrative: Patient has dementia. [facility] Head: normal to inspection Ears: hearing grossly normal bilaterally Face and sinus: normal facial exam Eyes General: appearance normal, both eyes and all related structures Pupils: PERRL Neck Neck: normal visual inspection, trachea midline and supple Chest Chest: normal inspection of the chest Resp Effort & Inspection: normal respiratory effort Auscultation: rales on the left lower lung field. Cardio Rate: tachycardic Rhythm: abnormal rhythm (Atrial fibrillation with RVR) GI Inspection: normal to inspection Palpation: soft Other: Nontender Other: Kong catheterization down drain in place draining dark bertha urine Back/Spine/Pelvis Back: normal to inspection Skin General: warm Neuro General: alert and awake Other: Confused but at her baseline. No other focal deficits noted Extrem Other: Small 2 x 3 dressing over the left lateral femur area in place dry and intact. Psych Attitude: cooperative Judgment: poor Other: Patient is cooperative with a simple commands Objective Labs Result Diagrams: 11/07/17 05:04 11/08/17 04:58 Labs: Laboratory Results - last 24 hr 11/08/17 04:58 Sodium 140 Potassium 4.4 Chloride 99 Carbon Dioxide 31 BUN 24 H Creatinine 0.70 Estimated GFR > 60.0 BUN/Creatinine Ratio 34.3 H Glucose 97 Calcium 8.5 Assessment & Plan Plan: Assessment/Plan Narrative: 1. Hip fracture status post operative management November 04 for further management as per ortho. Patient continues to have poor progression in her mobility. Patient was able to sit and stand to the commode. Continue to work with physical therapy. Able to tolerate short ambulation distances and sitting in the chair. 2. Chronic AFib had been on chronic warfarin got FFP 4 units prior to surgery. Coumadin restarted 2 days ago. Monitor continues to show atrial fibrillation with rapid ventricular response of less than 110. Continue on her beta-marcie. 3. Hypothyroid stable. Placed back on her home thyroid medication 4. Coronary artery disease no signs of on going ischemia. 5. History of ischemic cardiomyopathy and will stop her IV fluids as she seems to be compensated. Questionable intake status since admission reveals positive 5.7 L fluid balance. Chest x-ray reveals bilateral perihilar infiltrates suspicious for pulmonary edema secondary content to congestive heart failure. Trace bilateral effusions. Right basilar opacity may be atelectasis or consolidation. She was started on IV Lasix 40 mg t.i.d.. With adequate diuresis of more than 2300 mL since yesterday afternoon. Her lungs are more clear this morning. There is still a trace of dependent edema. I will taper the IV Lasix to b.i.d.. Repeat BMP in morning. 6. DVT prophylaxis on Lovenox bridging back to her routine dose of Coumadin. Will assess INR on Tuesday. 7. Disposition: If she continues to improve tomorrow she will be transferred to [facility]. Quality VTE Deep Vein Thrombosis/Pulmonary Embolism Present on Admission: No
--- NOTE | 2017-11-08 12:09 | PT.IPTN ---
Current Diagnoses Hypothyroidism, unspecified (11/03/17) Unspecified dementia without behavioral disturbance (11/03/17) Ischemic cardiomyopathy (11/03/17) Unspecified atrial fibrillation (11/03/17) Heart failure, unspecified (11/03/17) Repeated falls (11/03/17) Fracture of unspecified part of neck of left femur, initial encounter for closed fracture (11/03/17) Surgery Performed Operation Date: 11/04/17 14:15 Actual Procedures p ORIF Hip/Cannulated Screws(Left) - Jatinder Glaser MD Physical Therapy Treatment Note M2 PT-IP Current Condition Start: 11/05/17 08:43 Freq: NEEDED Status: Active Protocol: Document 11/06/17 15:00 TMS (Rec: 11/06/17 15:13 TMS [id number]) Physical Therapy Current Condition Current Condition Evaluation Date 11/05/17 Treatment Diagnosis L hip ORIF w/ cannulated screws s/p GLF Weight Bearing Status Weight Bearing Status Weight Bear as Tolerated M3 PT-IP Subjective Start: 11/05/17 08:43 Freq: NEEDED Status: Active Protocol: Document 11/08/17 11:15 GGD (Rec: 11/08/17 12:09 GGD [id number]) Subjective Physical Therapy Visit Type Type Treatment Note Visit Start Time 10:55 Visit Stop Time 11:20 Total Visit Minutes 25 Number of DIVERSIFIED CROPS II FARMWORKER Visits 1 Physical Therapy Visit Comments Patient Comments PT willing to get up to chair. Therapy Pain Assessment Pain When Pain Assessed At Rest Pain Present Pain Present Denied Pain M4 PT-IP Mobility and Gait Start: 11/05/17 08:43 Freq: NEEDED Status: Active Protocol: Document 11/08/17 11:15 GGD (Rec: 11/08/17 12:09 GGD [id number]) PT-Bed Mobility Assessment Sit to Supine Sit to Supine Moderate Assistance 2 Person Assistance Head of Bed Elevated Scooting Scooting to Edge of Bed Maximum Assistance PT-Transfer Assessment Sit to and From Stand Sit to and from Stand Moderate Assistance 2 Person Assistance Use of Upper Extremities Equipment Transfer Assistive Device Gait Belt Front Wheeled Walker Transfers Transfer Destination Chair Transfer Ability Level of Assist Moderate Assistance 2 Person Assistance Use of Upper Extremities Gait Assessment Gait Gait Assistance Required: Moderate Assistance 2 Person Assist Distance (Feet) (feet) 5 Able to Maintain Weight Bearing Status Yes During Gait Assistive Devices Assistive Device Front Wheeled Walker Gait Deviations General Gait Pattern Antalgic Decreased Stride Length Decreased Feet Clearance Wide Based Gait Factors Limiting Gait Function Factors Limiting Gait Function Decreased Activity Tolerance Decreased Strength Difficulty Following Directions Limited Range of Motion Pain Poor Balance Poor Safety Awareness Comments Gait Comments Pt was able to ambulate short distance with max cues for wieght shift, right LE step forward and FWW management. M5 PT-IP Objective Assessments Start: 11/05/17 08:43 Freq: NEEDED Status: Active Protocol: Document 11/05/17 09:29 RS (Rec: 11/05/17 11:33 RS [id number]) Orientation Orientation/Cognition Level of Alertness Confusional State Orientation Name Situation Safety Awareness Decreased Safety Awareness Gross Range of Motion Upper Extremity ROM Assessment Within Functional Limits Lower Extremity ROM Assessment Bilaterally Impaired Impairments Pt unable to move through PROM in either hip while in bed, LLE limited by pain, RLE pt denies pain but is almost rigid. Pt did not tolerate knee ROM in supine but was able to get to sitting EOB with feet on floor. Strength Upper Extremity Strength Assessment Within Functional Limits Lower Extremity Strength Assessment Bilaterally Impaired Comments Strength Comments not formally tested, pt in too much pain and not following instructions well enough to participate in testing, functionally pt is quite weak in BLE, unable to get to standing. Muscle Tone Comments Muscle Tone Comments Pt's R hip is quite rigid, unclear if this is muscular or joint related. Likely not related to tone though other than general guarding. M6 PT-IP Treatment Start: 11/05/17 08:43 Freq: NEEDED Status: Active Protocol: Document 11/06/17 15:00 TMS (Rec: 11/06/17 15:13 TMS [id number]) Physical Therapy Treatment Exercises Exercises Ankle Pumps Heel Slides Other Treatments Other Treatment Performed AA heelslides, hip Abduction. M7 PT-IP Assessment and Plan Start: 11/05/17 08:43 Freq: NEEDED Status: Active Protocol: Document 11/08/17 11:15 GGD (Rec: 11/08/17 12:09 GGD [id number]) PT Summary Assessment and Plan Summary Assessment Summary Pt improving with bed mobility and needed less assistance. She had better pain control with mobility. Frequency of Treatment Frequency Of Treatment Twice a Day Recommendations To Nursing Amount of Assist Needed 2 Person Assist Mechanical Lift Discharge Recommendations PT Discharge Recommendations SNF Rehab
[2017-11-08] MEDS: ACETAMINOPHEN 325 MG TABLET 650 MG PO (14:25)
--- NOTE | 2017-11-08 15:36 | PT.IPTN ---
Current Diagnoses Hypothyroidism, unspecified (11/03/17) Unspecified dementia without behavioral disturbance (11/03/17) Ischemic cardiomyopathy (11/03/17) Unspecified atrial fibrillation (11/03/17) Heart failure, unspecified (11/03/17) Repeated falls (11/03/17) Fracture of unspecified part of neck of left femur, initial encounter for closed fracture (11/03/17) Surgery Performed Operation Date: 11/04/17 14:15 Actual Procedures p ORIF Hip/Cannulated Screws(Left) - Jatinder Glaser MD Physical Therapy Treatment Note M2 PT-IP Current Condition Start: 11/05/17 08:43 Freq: NEEDED Status: Active Protocol: Document 11/06/17 15:00 TMS (Rec: 11/06/17 15:13 TMS [id number]) Physical Therapy Current Condition Current Condition Evaluation Date 11/05/17 Treatment Diagnosis L hip ORIF w/ cannulated screws s/p GLF Weight Bearing Status Weight Bearing Status Weight Bear as Tolerated M3 PT-IP Subjective Start: 11/05/17 08:43 Freq: NEEDED Status: Active Protocol: Document 11/08/17 14:30 GGD (Rec: 11/08/17 15:36 GGD [id number]) Subjective Physical Therapy Visit Type Type Treatment Note Visit Start Time 14:00 Visit Stop Time 14:30 Total Visit Minutes 30 Number of JUNK DEALER Visits 2 Physical Therapy Visit Comments Patient Comments Pt needs to use the BSC. Therapy Pain Assessment Pain When Pain Assessed During Mobility Pain Present Pain Present Pain Reported M4 PT-IP Mobility and Gait Start: 11/05/17 08:43 Freq: NEEDED Status: Active Protocol: Document 11/08/17 14:30 GGD (Rec: 11/08/17 15:36 GGD [id number]) PT-Bed Mobility Assessment Sit to Supine Sit to Supine Maximum Assistance 2 Person Assistance Scooting Scooting Up and Down in Bed Dependent PT-Transfer Assessment Sit to and From Stand Sit to and from Stand Moderate Assistance 2 Person Assistance Use of Upper Extremities Equipment Transfer Assistive Device Gait Belt Front Wheeled Walker Transfers Transfer Destination Bed Bedside Commode Transfer Technique Stand Step Pivot Transfer Ability Level of Assist Moderate Assistance 2 Person Assistance Use of Upper Extremities M5 PT-IP Objective Assessments Start: 11/05/17 08:43 Freq: NEEDED Status: Active Protocol: Document 11/05/17 09:29 RS (Rec: 11/05/17 11:33 RS [id number]) Orientation Orientation/Cognition Level of Alertness Confusional State Orientation Name Situation Safety Awareness Decreased Safety Awareness Gross Range of Motion Upper Extremity ROM Assessment Within Functional Limits Lower Extremity ROM Assessment Bilaterally Impaired Impairments Pt unable to move through PROM in either hip while in bed, LLE limited by pain, RLE pt denies pain but is almost rigid. Pt did not tolerate knee ROM in supine but was able to get to sitting EOB with feet on floor. Strength Upper Extremity Strength Assessment Within Functional Limits Lower Extremity Strength Assessment Bilaterally Impaired Comments Strength Comments not formally tested, pt in too much pain and not following instructions well enough to participate in testing, functionally pt is quite weak in BLE, unable to get to standing. Muscle Tone Comments Muscle Tone Comments Pt's R hip is quite rigid, unclear if this is muscular or joint related. Likely not related to tone though other than general guarding. M6 PT-IP Treatment Start: 11/05/17 08:43 Freq: NEEDED Status: Active Protocol: Document 11/06/17 15:00 TMS (Rec: 11/06/17 15:13 TMS [id number]) Physical Therapy Treatment Exercises Exercises Ankle Pumps Heel Slides Other Treatments Other Treatment Performed AA heelslides, hip Abduction. M7 PT-IP Assessment and Plan Start: 11/05/17 08:43 Freq: NEEDED Status: Active Protocol: Document 11/08/17 14:30 GGD (Rec: 11/08/17 15:36 GGD [id number]) PT Summary Assessment and Plan Summary Assessment Summary Pt able to take small transfer steps. She needed decrease assist for sit to stand, but increase assist for bed mobility. Frequency of Treatment Frequency Of Treatment Twice a Day Recommendations To Nursing Amount of Assist Needed 2 Person Assist Mechanical Lift Discharge Recommendations PT Discharge Recommendations SNF Rehab
--- NOTE | 2017-11-08 15:53 | CM.DPC ---
DCP/continued: Spoke with Atiya Ordoñez this AM. He anticipates that patient will be medically stable to d/c to SNF tomorrow 11-09-17. Left vm with admit at [facility]. Received message this AM from [facility] indicating that they can accept however, would like DPOA paperwork. In vm back to [facility] instructed them to call son/Simran. \ At this time unclear if patient will need cabulance vs. non-urgent BLS transport. NINA/Christian will check with therapy and decision will be made on day of d/c. P: [facility] when stable. MOLDER SHOULDER PAD [facility]. Will leave note for covering MOLDER SHOULDER PAD. REINALDO Rivas
[2017-11-08] MEDS: SERTRALINE 50 MG TABLET PO (20:36)
[2017-11-09 00:05] VITALS: O2SAT 97
[2017-11-09] MEDS: OXYCODONE/ACETAMINOPHEN 5/325 TABLET 1 TAB PO (00:06)
[2017-11-09] MEDS: FUROSEMIDE 40 MG/4 ML VIAL IV ×2 (00:06→11:56)
[2017-11-09] MEDS: SODIUM CHLORIDE 0.9% FLUSH 10 ML IV ×2 (00:07→09:42)
[2017-11-09 05:27] VITALS: BP 138/85; PULSE 96; RESP 16; TEMP 36; O2SAT 98
[2017-11-09 05:29] LABS: INR 1.5 (0.9-1.3); Prothrombin Time 16.6 SECONDS (10.1-12.7)
[2017-11-09 05:34] LABS: Blood Urea Nitrogen 21 mg/dL (7-17); Calcium 8.2 mg/dL (8.4-10.2); Carbon Dioxide 37 mmol/L (22-32); Chloride 95 mmol/L (98-107); Estimated Glomerular Filt Rate > 60.0 mL/min (>60); Glucose 95 mg/dL (80-110); HEMOLYSIS < 15 (0-50); Potassium 3.4 mmol/L (3.4-5.1); Sodium 141 mmol/L (137-145)
[2017-11-09] MEDS: THYROID, PORK 60 MG TABLET 120 MG PO (06:05)
--- NOTE | 2017-11-09 07:08 | PM.DS.1 ---
History of Present Illness Date Patient Seen: 11/09/17 Time Patient Seen: 07:09 Chief complaint: GLF, L hip pain Narrative: Yelena Pedersen is a 82 year old female who fell at home on the 02 of November. She was trying to sit on a arm chair and missed the seat of the chair instead sitting on the arm of the chair and fell landing on her left elbow and hip. She had pain in the left hip and was brought into the ER by EMS. X-rays showed a left femoral neck fracture. She was admitted under the hospital service. She is on warfarin. She has dementia. Discharge Providers Date of admission: 11/03/17 05:06 Primary care physician: Celeste Wood DO Consults: 11/04/17 18:47 Consult to Discharge Planning Routine Comment: Consult to Physical Therapy Evaluate & Treat Comment: Physician Instructions: progressive weight bear as tolerated to left hip Discharge provider: NINA Urbina Summary Discharge Diagnosis: Open reduction internal fixation of the left femur neck. Hospital Course: This is a summary of a 6 day hospitalization for this 82-year-old female who presented to the emergency room with a ground level fall and left hip pain. Hip and pelvis x-ray showed a subcapital left femoral neck fracture without angular deformity. There is also high-grade bilateral degenerative hip joint disease. Patient was given 4 units of FFP since she was on Coumadin, taken to the OR and had an open reduction internal fixation of the left femoral neck. She was placed on Lovenox for DVT prophylaxis, until her Coumadin could be restarted as part of her atrial fibrillation management. After her postop. Her beta-marcie was restarted for atrial fibrillation and she was having rapid ventricular response rates into the 120s. She has remained afebrile throughout this hospitalization. After 3 days on her Coumadin her levels were still subtherapeutic so her dose was increased to 5 mg q.day. Patient also has a history of ischemic cardiomyopathy and was noted to be approximately 5 L fluid volume excess. Chest x-ray revealed bilateral perihilar infiltrates suspicious for pulmonary edema secondary to congestive heart failure. Patient was treated with IV Lasix for diuresis and responded appropriately. She was also supplemented with oral potassium replacement. Pain has been well controlled during this hospitalization with minimal narcotic analgesics. She will continue to need physical therapy and occupational therapy. While in the hospital she was able to stand, take small steps transfer with 2 person assist. Once discharged from the residential facility she will need follow-up with her primary care provider for management of her atrial fibrillation anticoagulation and antihypertensive medications. Exam Vital Signs (past 8 hours): Vital Signs - 8 hr 11/08/17 23:20 11/09/17 00:05 11/09/17 05:27 Temperature 98.2 F 96.8 F L Pulse Rate 101 H 96 H Respiratory Rate 16 16 Blood Pressure 127/82 H 138/85 H Pulse Oximetry 98 97 98 Pulse Oximetry 98 Fraction of Inspired Oxygen 1 Oxygen Delivery Method Nasal Cannula Oxygen Flow Rate 1 Narrative Exam Narrative: Exam Narrative: Exam Narrative: Patient has dementia. [facility] Head: normal to inspection Ears: hearing grossly normal bilaterally Face and sinus: normal facial exam Eyes General: appearance normal, both eyes and all related structures Pupils: PERRL Neck Neck: normal visual inspection, trachea midline and supple Chest Chest: normal inspection of the chest Resp Effort & Inspection: normal respiratory effort. Able to speak in full sentences. Auscultation: Clear bilaterally. No wheezes rales or rhonchi. Cardio Rate: 80 -100 while at rest. Rhythm: abnormal rhythm (Atrial fibrillation) GI Inspection: normal to inspection, active bowel sounds Palpation: soft Other: Nontender Other: Kong catheterization down drain in place draining clear yellow urine Back/Spine/Pelvis Back: normal to inspection Skin General: warm Neuro General: alert and awake Other: Confused but at her baseline. No other focal deficits noted Extrem Other: Small 2 x 3 dressing over the left lateral femur area in place dry and intact. Psych Attitude: cooperative Judgment: poor Other: Patient is cooperative with a simple commands Objective Labs Result Diagrams: 11/07/17 05:04 11/09/17 05:17 Labs: Laboratory Results - last 24 hr 11/09/17 11/09/17 05:17 05:17 PT 16.6 H INR 1.5 H Sodium 141 Potassium 3.4 Chloride 95 L Carbon Dioxide 37 H BUN 21 H Creatinine 0.70 Estimated GFR > 60.0 BUN/Creatinine Ratio 30.0 H Glucose 95 Calcium 8.2 L Discharge Plan Discharge Plan Patient Disposition: SNF Transfer to: [facility] Transportation: Facility vehicle Labs: Will need a follow-up INR and BMP on Tuesday I certify the postop hospital residential care is medically necessary on a continuing basis for any conditions for which he/ she received care during this hospitalization.: Yes The receiving facility has agreed to accept transfer and provide medical treatment.: Yes Discharge Health Status Precautions: [place] Provider Discharge Instructions Diet: Regular Food texture: Regular Catheter comment: Kong catheter removed 09 November 2017. Oxygen: Room air during the day. Wound Care Report to your healthcare provider any signs of infection, such as:: chills, fever, night sweats, increased pain and unusual drainage Special Rehabilitation Services Reason for rehabilitation: Post-operative therapy Rehab type: Physical therapy and Occupational therapy Discharge Data Primary Care Provider: Celeste Wood Attending Provider: Joselito Pedraza Admit Date/Time: 11/03/17 05:06 Quality VTE Deep Vein Thrombosis/Pulmonary Embolism Present on Admission: No
--- NOTE | 2017-11-09 07:22 | P.DS_ITS ---
History of Present Illness Date Patient Seen: 11/09/17 Time Patient Seen: 07:09 Chief complaint: GLF, L hip pain Narrative: Yelena Pedersen is a 82 year old female who fell at home on the 02 of November. She was trying to sit on a arm chair and missed the seat of the chair instead sitting on the arm of the chair and fell landing on her left elbow and hip. She had pain in the left hip and was brought into the ER by EMS. X-rays showed a left femoral neck fracture. She was admitted under the hospital service. She is on warfarin. She has dementia. Discharge Providers Date of admission: 11/03/17 05:06 Primary care physician: Celeste Wood DO Consults: 11/04/17 18:47 Consult to Discharge Planning Routine Comment: Consult to Physical Therapy Evaluate & Treat Comment: Physician Instructions: progressive weight bear as tolerated to left hip Discharge provider: NINA Urbina Summary Discharge Diagnosis: Open reduction internal fixation of the left femur neck. Hospital Course: This is a summary of a 6 day hospitalization for this 82-year- old female who presented to the emergency room with a ground level fall and left hip pain. Hip and pelvis x-ray showed a subcapital left femoral neck fracture without angular deformity. There is also high-grade bilateral degenerative hip joint disease. Patient was given 4 units of FFP since she was on Coumadin, taken to the OR and had an open reduction internal fixation of the left femoral neck. She was placed on Lovenox for DVT prophylaxis, until her Coumadin could be restarted as part of her atrial fibrillation management. After her postop. Her beta-marcie was restarted for atrial fibrillation and she was having rapid ventricular response rates into the 120s. She has remained afebrile throughout this hospitalization. After 3 days on her Coumadin her levels were still subtherapeutic so her dose was increased to 5 mg q.day. Patient also has a history of ischemic cardiomyopathy and was noted to be approximately 5 L fluid volume excess. Chest x-ray revealed bilateral perihilar infiltrates suspicious for pulmonary edema secondary to congestive heart failure. Patient was treated with IV Lasix for diuresis and responded appropriately. She was also supplemented with oral potassium replacement. Pain has been well controlled during this hospitalization with minimal narcotic analgesics. She will continue to need physical therapy and occupational therapy. While in the hospital she was able to stand, take small steps transfer with 2 person assist. Once discharged from the detention facility she will need follow-up with her primary care provider for management of her atrial fibrillation anticoagulation and antihypertensive medications. Exam Vital Signs (past 8 hours): Vital Signs - 8 hr 3 11/08/17 23:20 11/09/17 00:05 11/09/17 05:27 Temperature 98.2 F 96.8 F L Pulse Rate 101 H 96 H Respiratory Rate 16 16 Blood Pressure 127/82 H 138/85 H Pulse Oximetry 98 97 98 Pulse Oximetry 98 Fraction of Inspired Oxygen 1 Oxygen Delivery Method Nasal Cannula Oxygen Flow Rate 1 Narrative Exam Narrative: Exam Narrative: Exam Narrative: Patient has dementia. [facility] Head: normal to inspection Ears: hearing grossly normal bilaterally Face and sinus: normal facial exam Eyes General: appearance normal, both eyes and all related structures Pupils: PERRL Neck Neck: normal visual inspection, trachea midline and supple Chest Chest: normal inspection of the chest Resp Effort & Inspection: normal respiratory effort. Able to speak in full sentences. Auscultation: Clear bilaterally. No wheezes rales or rhonchi. Cardio Rate: 80 -100 while at rest. Rhythm: abnormal rhythm (Atrial fibrillation) GI Inspection: normal to inspection, active bowel sounds Palpation: soft Other: Nontender Other: Kong catheterization down drain in place draining clear yellow urine Back/Spine/Pelvis Back: normal to inspection Skin General: warm Neuro General: alert and awake Other: Confused but at her baseline. No other focal deficits noted Extrem Other: Small 2 x 3 dressing over the left lateral femur area in place dry and intact. Psych Attitude: cooperative Judgment: poor Other: Patient is cooperative with a simple commands Objective Labs Result Diagrams: 11/07/17 05:04 11/09/17 05:17 Labs: Laboratory Results - last 24 hr 11/09/17 11/09/17 05:17 05:17 PT 16.6 H INR 1.5 H Sodium 141 Potassium 3.4 Chloride 95 L Carbon Dioxide 37 H BUN 21 H Creatinine 0.70 Estimated GFR > 60.0 BUN/Creatinine Ratio 30.0 H Glucose 95 Calcium 8.2 L Discharge Plan Discharge Plan Patient Disposition[facility] Transportation: Facility vehicle Labs: Will need a follow-up INR and BMP on Tuesday I certify the postop hospital detention care is medically necessary on a continuing basis for any conditions for which he/ she received care during this hospitalization.: Yes The receiving facility has agreed to accept transfer and provide medical treatment.: Yes Discharge Health Status Precautions: [place] Provider Discharge Instructions Diet: Regular Food texture: Regular Catheter comment: Kong catheter removed 09 November 2017. Oxygen: Room air during the day. Wound Care Report to your healthcare provider any signs of infection, such as:: chills, fever, night sweats, increased pain and unusual drainage Special Rehabilitation Services Reason for rehabilitation: Post-operative therapy Rehab type: Physical therapy and Occupational therapy Discharge Data Primary Care Provider: Celeste Wood Attending Provider: Joselito Pedraza Admit Date/Time: 11/03/17 05:06 Quality VTE Deep Vein Thrombosis/Pulmonary Embolism Present on Admission: No
[2017-11-09 08:03] VITALS: BP 137/79; PULSE 98; RESP 18; TEMP 36.6; O2SAT 93
[2017-11-09] MEDS: POTASSIUM CHLORIDE 20 MEQ TAB PO ×2 (08:04→12:26)
[2017-11-09 09:40] VITALS: O2SAT 99
[2017-11-09] MEDS: BISOPROLOL 5 MG TABLET 15 MG PO (09:40)
[2017-11-09] MEDS: ENOXAPARIN 40 MG/0.4 ML SYRINGE SUBCUT (09:41)
[2017-11-09] MEDS: SODIUM CHLORIDE 0.9% 250 ML 21 ML IV (11:55)
--- NOTE | 2017-11-09 11:58 | PT.IPTN ---
Current Diagnoses Hypothyroidism, unspecified (11/03/17) Unspecified dementia without behavioral disturbance (11/03/17) Ischemic cardiomyopathy (11/03/17) Unspecified atrial fibrillation (11/03/17) Heart failure, unspecified (11/03/17) Repeated falls (11/03/17) Fracture of unspecified part of neck of left femur, initial encounter for closed fracture (11/03/17) Surgery Performed Operation Date: 11/04/17 14:15 Actual Procedures p ORIF Hip/Cannulated Screws(Left) - Jatinder Glaser MD Physical Therapy Treatment Note M2 PT-IP Current Condition Start: 11/05/17 08:43 Freq: NEEDED Status: Active Protocol: Document 11/06/17 15:00 TMS (Rec: 11/06/17 15:13 TMS [id number]) Physical Therapy Current Condition Current Condition Evaluation Date 11/05/17 Treatment Diagnosis L hip ORIF w/ cannulated screws s/p GLF Weight Bearing Status Weight Bearing Status Weight Bear as Tolerated M3 PT-IP Subjective Start: 11/05/17 08:43 Freq: NEEDED Status: Active Protocol: Document 11/09/17 11:41 GGD (Rec: 11/09/17 11:58 GGD [email or web address]) Subjective Physical Therapy Visit Type Type Treatment Note Visit Start Time 11:05 Visit Stop Time 11:40 Total Visit Minutes 35 Number of FIRMWARE ENGINEER Visits 3 Physical Therapy Visit Comments Patient Comments Pt states that she needs to use the BSC. Therapy Pain Assessment Pain When Pain Assessed At Rest Pain Present Pain Present Pain Reported M4 PT-IP Mobility and Gait Start: 11/05/17 08:43 Freq: NEEDED Status: Active Protocol: Document 11/09/17 11:41 GGD (Rec: 11/09/17 11:58 GGD [email or web address]) PT-Bed Mobility Assessment Sit to Supine Sit to Supine Moderate Assistance 1 Person Assistance Scooting Scooting to Edge of Bed Contact Guard Assistance PT-Transfer Assessment Sit to and From Stand Sit to and from Stand Moderate Assistance Total Assistance Use of Upper Extremities Equipment Transfer Assistive Device Gait Belt Front Wheeled Walker Transfers Transfer Destination Bed Bedside Commode Transfer Technique Stand Step Pivot Transfer Ability Level of Assist Minimal Assistance 1 Person Assistance Use of Upper Extremities Comments Mobility Comments PT need less assist. She did need max cueing. Gait Assessment Gait Gait Assistance Required: Minimum Assistance 1 Person Assist Distance (Feet) (feet) 5 Assistive Devices Assistive Device Gait Belt Front Wheeled Walker Gait Deviations General Gait Pattern Antalgic Decreased Stride Length Decreased Feet Clearance Factors Limiting Gait Function Factors Limiting Gait Function Decreased Activity Tolerance Decreased Strength Difficulty Following Directions Limited Range of Motion Pain Poor Balance Poor Safety Awareness M5 PT-IP Objective Assessments Start: 11/05/17 08:43 Freq: NEEDED Status: Active Protocol: Document 11/05/17 09:29 RS (Rec: 11/05/17 11:33 RS [id number]) Orientation Orientation/Cognition Level of Alertness Confusional State Orientation Name Situation Safety Awareness Decreased Safety Awareness Gross Range of Motion Upper Extremity ROM Assessment Within Functional Limits Lower Extremity ROM Assessment Bilaterally Impaired Impairments Pt unable to move through PROM in either hip while in bed, LLE limited by pain, RLE pt denies pain but is almost rigid. Pt did not tolerate knee ROM in supine but was able to get to sitting EOB with feet on floor. Strength Upper Extremity Strength Assessment Within Functional Limits Lower Extremity Strength Assessment Bilaterally Impaired Comments Strength Comments not formally tested, pt in too much pain and not following instructions well enough to participate in testing, functionally pt is quite weak in BLE, unable to get to standing. Muscle Tone Comments Muscle Tone Comments Pt's R hip is quite rigid, unclear if this is muscular or joint related. Likely not related to tone though other than general guarding. M6 PT-IP Treatment Start: 11/05/17 08:43 Freq: NEEDED Status: Active Protocol: Document 11/06/17 15:00 TMS (Rec: 11/06/17 15:13 TMS [id number]) Physical Therapy Treatment Exercises Exercises Ankle Pumps Heel Slides Other Treatments Other Treatment Performed AA heelslides, hip Abduction. M7 PT-IP Assessment and Plan Start: 11/05/17 08:43 Freq: NEEDED Status: Active Protocol: Document 11/09/17 11:41 GGD (Rec: 11/09/17 11:58 GGD [email or web address]) PT Summary Assessment and Plan Summary Assessment Summary Pt need less cueing for gait. She impoved with sit to stand and bed mobility. Frequency of Treatment Frequency Of Treatment Twice a Day Treatment Plan Other Recommendations and Next Treatment progress gait. Focus Recommendations To Nursing Amount of Assist Needed 2 Person Assist Discharge Recommendations PT Discharge Recommendations SNF Rehab
[2017-11-09 12:03] VITALS: BP 120/70; PULSE 93; RESP 16; TEMP 36.6; O2SAT 90
--- NOTE | 2017-11-09 16:20 | CM.DPNOTE ---
DC NOte: DC order in place for DC to [facility]. Faxed completed PASSR, signed med list and other DC ppk to Barbara at [facility] [place]. Pt's son Freddie remained agreeable to DC plan. Non emergent BLS arranged for p/u at 1330, d/t hip precautions and weakness/pain. RN, pt, and family made aware. All agreeable to plan. REINALDO Lord
== END 2017-11-09 13:35 | DRG 480 ==
LOC: ED 04:55 → AC 05:07
PROVIDERS: Internal Medicine; Nurse Practitioner Acute Care; Orthopaedic Surgery Orthopaedic Surgery of the Spine; Physician Assistant; Admitting Provider Internal Medicine; Emergency Provider Emergency Medicine; Family Provider Family Medicine; PCP Family Medicine; Visit Provider Internal Medicine
PROC: 0QS704Z Reposition Left Upper Femur with Internal Fixation Device, Open Approach (ICD-10-PCS; principal; 2017-11-04 14:15)
DX: S72.012A Unspecified intracapsular fracture of left femur, initial encounter for closed fracture (principal); J81.0 Acute pulmonary edema; W18.39XA Other fall on same level, initial encounter; Z91.81 History of falling; Y92.000 Kitchen of unspecified non-institutional (private) residence as the place of occurrence of the external cause; E03.9 Hypothyroidism, unspecified; F03.90 Unspecified dementia, unspecified severity, without behavioral disturbance, psychotic disturbance, mood disturbance, and anxiety; I48.2 Chronic atrial fibrillation; Z79.01 Long term (current) use of anticoagulants; I25.5 Ischemic cardiomyopathy; I25.10 Atherosclerotic heart disease of native coronary artery without angina pectoris; M16.0 Bilateral primary osteoarthritis of hip; E87.70 Fluid overload, unspecified
CPT/HCPCS: 36415; 36430; 36591; 36592; 51701; 71045; 73502; 80048; 85025; 85610; 85730; 86850; 86900; 86901; 86927; 93005; 94760; 96374; 97110; 97116; 97162; 97530; 99283; 99285; P9016; J0690; J1650; J1940; J2270; J2704; J3010; J3430

== ENCOUNTER 2017-12-25 20:04 | Inpatient (IN) | payer MEDICARE, SELFPAY ==
[2017-11-03 05:47] VITALS: BMI 27.7
--- NOTE | 2017-12-25 20:09 | ED.WEAKNESS ---
HPI - Weakness General Chief complaint: Weakness Stated complaint: Weakness Time Seen by Provider: 12/25/17 20:06 Source: family Limitations: other ( Dementia) History of Present Illness HPI Narrative: patient is a 82-year-old female presenting with increasing weakness. She was released from the hospital on 11/09/2017 after a left hip fracture. She was sent to rehab and released on December 16. Family says that she initially was walking around with a walker however over the last week she has become not ambulatory and more confused. He thought that she had been slurring her words she has become overall more confused. They state that they have not been giving her any pain medications. She was previously able to get to the restroom however she is no longer able to do so. The patient herself has no real complaints and is an extremely poor historian. MD Complaint: generalized weakness Related Data Home Medications Medication Instructions Recorded Confirmed chlorpheniramine maleate 4 mg PO PRN PRN #0 03/03/17 11/03/17 multivitamin [Multiple Vitamins] 1 tab PO QDAY #0 03/03/17 11/03/17 omega 3-hpb-cch-fish oil [Fish Oil] 1,200 mg PO QDAY #0 03/03/17 11/03/17 sennosides [senna] 8.6 mg PO PRN PRN #0 03/03/17 11/03/17 alprazolam 0.25 mg PO Q8HP PRN #0 07/13/17 11/03/17 carboxymethylcellulose sodium 15 ml OP QDAY #0 08/01/17 11/03/17 [Refresh Tears] chlorthalidone 50 mg PO DAILY 11/03/17 11/03/17 tramadol 50 mg PO BEDTIME 11/03/17 11/03/17 bisoprolol fumarate 5 mg tablet 10 mg PO Q12H #0 tab 12/21/17 Previous Rx's Medication Instructions Recorded thyroid (pork) [[place] Thyroid] 120 mg PO QDAY #30 tab 08/01/17 potassium chloride [Klor-Con M20] 20 meq PO TIDWM #21 tab 11/09/17 furosemide 20 mg tablet 20 mg PO DAILY #30 tab 12/21/17 sertraline 25 mg tablet 25 mg PO DAILY #30 tab 12/21/17 spironolactone 25 mg tablet 12.5 mg PO BID #30 tab 12/21/17 warfarin 2 mg tablet 1 mg PO .QSun,TUe,FABIÁN,FRi #30 tab 12/21/17 warfarin 3 mg tablet 3 mg PO QMWF #30 tab 12/21/17 Allergies Allergy/AdvReac Type Severity Reaction Status Date / Time bumetanide [BUMETANIDE] Allergy Unknown Verified 10/21/17 14:06 carisoprodol [CARISOPRODOL] Allergy Unknown Verified 10/21/17 14:06 digoxin [DIGOXIN] Allergy Unknown Verified 10/21/17 14:06 flecainide [FLECAINIDE] Allergy Unknown Verified 10/21/17 14:06 ibuprofen [IBUPROFEN] Allergy Unknown Verified 10/21/17 14:06 lactose [LACTOSE] Allergy Unknown Verified 10/21/17 14:06 Penicillins [PENICILLINS] Allergy Unknown Verified 10/21/17 14:06 quinidine [QUINIDINE] Allergy Unknown Verified 10/21/17 14:06 Quinolones [QUINOLONES] Allergy Unknown Verified 10/21/17 14:06 Sulfa (Sulfonamide Allergy Unknown Verified 10/21/17 14:06 Antibiotics) [SULFA (SULFONAMIDE ANTIBIOTICS)] verapamil [VERAPAMIL] Allergy Unknown Verified 10/21/17 14:06 donepezil AdvReac Hallucinati Verified 11/03/17 11:09 ng Review of Systems Review of Systems Unable to obtain [facility] Medical History Closed fracture of neck of left femur (Acute) Atrial fibrillation (Chronic) Dementia (Chronic) Ischemic cardiomyopathy (Acute) Coronary artery disease (Chronic) Gout (Chronic) Hypothyroid (Chronic) Social History household members: children Smoking Status: Never smoker alcohol intake: never Exam Initial Vital Signs Initial Vital Signs: Vital Signs Temperature 98.1 F 12/25/17 20:23 Pulse Rate 108 H 12/25/17 20:23 Respiratory Rate 20 12/25/17 20:23 Blood Pressure 120/88 H 12/25/17 20:23 Pulse Oximetry 98 12/25/17 20:23 Const General: No in distress, anxious ( agitated) and frail appearing Orientation: alert and awake [facility] Head: normal to inspection, normocephalic, atraumatic, No abrasion, No laceration and No palpable skull fracture Eyes General: appearance normal, both eyes and all related structures Eyelids: eyelids normal Pupils: PERRL EOM: EOM intact bilaterally Neck Neck: normal visual inspection, full ROM, no meningeal signs and trachea midline Chest Chest: normal inspection of the chest Resp Effort & Inspection: normal respiratory effort Auscultation: clear to auscultation bilaterally, no rales, no rhonchi and no wheezes Cardio Rhythm: abnormal rhythm irregularly irregular Heart Sounds: S1 normal and S2 normal GI Palpation: soft, No firm and No tender General: No CVA tenderness Back/Spine/Pelvis Back: normal to inspection, No back tenderness and No CVA tenderness Skin General: no rashes or lesions noted Neuro General: alert, awake and oriented ( person) Cranial Nerves: CN's II-XI intact bilaterally Motor: No strength 5/5 throughout and other ( overall weak all extremities drift to gurney) Extrem General: normal to inspection and capillary refill normal Course Orders Ordered: ED Orders 12/25/17 20:55 Complete Blood Count AUTO DIFF Stat Comprehensive Metabolic Panel Stat Lactate (Lactic Acid) Stat Partial Thromboplastin Time Stat Procalcitonin Stat Prothrombin Time INR Stat Troponin & CK Cardiac Panel Stat 12/25/17 21:07 EKG-12 Lead Stat 12/25/17 21:45 Blood Culture Stat 12/26/17 01:46 Consult to Physician Routine 12/26/17 02:14 Consult to Dietitian, Adult Routine 12/26/17 06:00 Troponin I Stat 12/26/17 06:41 Prothrombin Time INR Stat Sodium Chloride (Normal Saline 0.9% Flush) 10 ml IV BID IRIS Sodium Chloride (Normal Saline 0.9% Flush) 10 ml IV PRN PRN PRN Reason: Flush Vital Signs - 8 hr 12/25/17 21:36 12/25/17 23:24 12/26/17 01:18 Temperature Pulse Rate 102 H 108 H 102 H Respiratory Rate 26 H 18 20 Blood Pressure 128/59 H Blood Pressure [Left Arm] 121/74 H 105/71 Pulse Oximetry 93 95 93 12/26/17 01:30 12/26/17 04:25 Temperature 98.5 F 97.7 F Pulse Rate 114 H 110 H Respiratory Rate 20 21 Blood Pressure 123/63 H 117/75 Blood Pressure [Left Arm] Pulse Oximetry 93 96 MDM - Weakness Lab Data Result diagrams: 12/25/17 20:55 12/25/17 20:55 Lab Results 12/25/17 12/25/17 12/25/17 Range/Units 20:55 20:55 20:55 WBC 9.6 (4.5-11.0) X10^3/uL RBC 4.83 (4.0-5.2) X10^6/uL Hgb 14.9 (12.0-16.0) g/dL Hct 45.8 (36-46) % MCV 94.9 (80-100) fL MCH 30.7 (26-34) PG MCHC 32.4 (30-36) % RDW 18.9 H (11.6-14.8) % Plt Count 247 (150-400) X10^3/uL Neut % (Auto) 62.0 (50-75) % Lymph % (Auto) 24.4 L (25-40) % [place] % (Auto) 11.8 (3-14) % Eos % (Auto) 1.8 L (2-4) % Baso % (Auto) 0.0 (0-2) % Neut # (Auto) 6000 H (3794-5316) /uL PT 44.8 H (10.1-12.7) SECONDS INR 4.0 H (0.9-1.3) APTT 51 H D (26.4-36.2) SECONDS Sodium (137-145) mmol/L Potassium (3.4-5.1) mmol/L Chloride (98-107) mmol/L Carbon Dioxide (22-32) mmol/L BUN (7-17) mg/dL Creatinine (0.52-1.04) mg/dL Estimated GFR (>60) mL/min BUN/Creatinine Ratio (6-22) Glucose (80-110) mg/dL Lactate (0.7-2.1) mmol/L Calcium (8.4-10.2) mg/dL Total Bilirubin (0.2-1.3) mg/dL AST (14-36) IU/L ALT (9-52) IU/L Alkaline Phosphatase (38-126) U/L Total Creatine Kinase (30-135) U/L CK-MB (CK-2) CK-MB (CK-2) Rel Index Troponin I (0.01-0.034) ng/mL Total Protein (6.3-8.2) g/dL Albumin (3.5-5.0) g/dL Globulin (1.7-4.1) g/dL Albumin/Globulin Ratio (1.0-2.8) Procalcitonin < 0.05 (<0.5) ng/mL 12/25/17 12/25/17 12/25/17 Range/Units 20:55 20:55 20:55 WBC (4.5-11.0) X10^3/uL RBC (4.0-5.2) X10^6/uL Hgb (12.0-16.0) g/dL Hct (36-46) % MCV (80-100) fL MCH (26-34) PG MCHC (30-36) % RDW (11.6-14.8) % Plt Count (150-400) X10^3/uL Neut % (Auto) (50-75) % Lymph % (Auto) (25-40) % [place] % (Auto) (3-14) % Eos % (Auto) (2-4) % Baso % (Auto) (0-2) % Neut # (Auto) (5181-2155) /uL PT (10.1-12.7) SECONDS INR (0.9-1.3) APTT (26.4-36.2) SECONDS Sodium 143 (137-145) mmol/L Potassium 4.9 (3.4-5.1) mmol/L Chloride 105 (98-107) mmol/L Carbon Dioxide 28 (22-32) mmol/L BUN 19 H (7-17) mg/dL Creatinine 0.70 (0.52-1.04) mg/dL Estimated GFR > 60.0 (>60) mL/min BUN/Creatinine Ratio 27.1 H (6-22) Glucose 112 H (80-110) mg/dL Lactate 1.5 (0.7-2.1) mmol/L Calcium 8.8 (8.4-10.2) mg/dL Total Bilirubin 2.9 H (0.2-1.3) mg/dL AST 55 H (14-36) IU/L ALT 25 (9-52) IU/L Alkaline Phosphatase 163 H (38-126) U/L Total Creatine Kinase 73 Cancelled (30-135) U/L CK-MB (CK-2) Cancelled CK-MB (CK-2) Rel Index Cancelled Troponin I 0.018 Cancelled (0.01-0.034) ng/mL Total Protein 7.3 (6.3-8.2) g/dL Albumin 3.5 (3.5-5.0) g/dL Globulin 3.8 (1.7-4.1) g/dL Albumin/Globulin Ratio 0.9 L (1.0-2.8) Procalcitonin (<0.5) ng/mL Imaging Data Chest x-ray: Radiologist's impression: PROCEDURE: XR CHEST 1V INDICATIONS: weakness TECHNIQUE: One view of the chest was acquired. COMPARISON: [facility], , XR CHEST 1V, 11/07/2017, 11:54. [facility], , CHEST 1 VIEW, 03/06/2017, 12:20. [facility], CR, XR CHEST 1 VIEW, 04/25/2017, 21:44. FINDINGS: Surgical changes and devices: Pacemaker. Lungs and pleura: Diffuse increased pulmonary vascularity is present as well as mild right and minimal left effusions. Mediastinum: Mediastinal contours appear normal. Heart size is enlarged. Bones and chest wall: No suspicious bony lesions. Overlying soft tissues appear unremarkable. IMPRESSION: Cardiomegaly with increased vascularity and effusions most consistent with edema. Dictated by: Radha Ramos M.D. on 12/25/2017 at 21:02 pelvis x-ray: Radiologist's impression: PROCEDURE: XR PELVIS 1-2V INDICATIONS: recent left fx TECHNIQUE: One view(s) of the pelvis acquired. COMPARISON: [facility], CR, XR HIP W PEL IF DONE LT 2V, 11/04/2017, 16:17. [facility], CR, XR HIP W PEL IF DONE LT 2V, 11/03/2017, 3:25. FINDINGS: Bones: Left femoral pinning is present. Hardware is intact. Minimal appearance of fracture lucency persists. Significant degenerative changes are present within the right hip. Degenerative changes are also present within the lower lumbar spine. Soft tissues: Visualized bowel gas pattern is normal. No suspicious soft tissue calcifications. IMPRESSION: No visualized acute fracture or dislocation. However, if clinical concern and/or pain persist, short interval imaging followup in 7-10 days is recommended, as occult injury cannot be definitively excluded. Dictated by: Radha Ramos M.D. 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 This may represent nonhemorrhagic infarction of indeterminate age. No mass effect or midline shift. 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 Encephalomalacia unchanged and left occipital lobe compared to prior study. Mild to moderate age-related atrophic change. Mild to moderate age-related ischemic demyelinization ac of white matter. Further evaluation with MRI may be helpful if clinically indicated. ECG Data Attestation: I personally reviewed and interpreted this ECG as follows: Prior ECG tracings: available for review Interpretation: EKG 1.: Atrial fibrillation rate [address] depression and T-wave inversion leads 2 and 3 and precordial leads including V4, V5 and V6. This is new from previous EKGs. Also new right bundle branch block EKG 2.: AFib rate [address] depressions and T-wave inversions in p Inferior and precordial leads MDM Narrative Medical decision making narrative: patient has new EKG changes with ST depressions not seen on any previous EKGs even when AFib with RVR is present. she is noted to have a supratherapeutic eye and are as well but no acute bleeding on CT. She has no leukocytosis or sign of infection. His she remains extremely weak and will need assistance. It is unclear if she is having a chest pain she is moaning and crying but is comforted with family is there and with somebody enters the room. CT suggested of possible stroke but age is indeterminate. She has no focal deficits, But isn't able to fully participate in an NIH stroke scale. Dr. Slade accepts patient for observation. Discharge Plan Departure Patient Disposition: Admitted as Observation Clinical Impression: Chest pain Discharge Date/Time: 12/26/17 01:30 Interventions: ED Discharge Assessment Last Done: 12/26/17 01:18 Admit Date/Time: 12/26/17 01:15 Admit Provider: Joey Slade
--- NOTE | 2017-12-25 20:10 | DI.RAD.S_ITS ---
PROCEDURE: XR CHEST 1V INDICATIONS: weakness TECHNIQUE: One view of the chest was acquired. COMPARISON: [facility], CR, XR CHEST 1V, 11/07/2017, 11:54. [facility], CR, CHEST 1 VIEW, 03/06/2017, 12:20. [facility], CR, XR CHEST 1 VIEW, 04/25/2017, 21:44. FINDINGS: Surgical changes and devices: Pacemaker. Lungs and pleura: Diffuse increased pulmonary vascularity is present as well as mild right and minimal left effusions. Mediastinum: Mediastinal contours appear normal. Heart size is enlarged. Bones and chest wall: No suspicious bony lesions. Overlying soft tissues appear unremarkable. IMPRESSION: Cardiomegaly with increased vascularity and effusions most consistent with edema. Dictated by: Radha Ramos M.D. on 12/25/2017 at 21:02 Approved by: Radha Ramos M.D. on 12/25/2017 at 21:03
--- NOTE | 2017-12-25 20:10 | DI.CT.S_ITS ---
PROCEDURE: CT HEAD/BRAIN WO CON INDICATIONS: weakness confusion TECHNIQUE: Noncontrast 4.5 mm thick angled axial sections acquired from the foramen magnum to the vertex, with coronal and sagittal reformats. For radiation dose reduction, the following was used: automated exposure control, adjustment of mA and/or kV according to patient size. COMPARISON: [facility], CT, STROKE HEAD AND NECK ANGIO, 06/17/2012, 14:35. [facility], CT, HEAD WITHOUT CONTRAST, 06/16/2012, 15:50. FINDINGS: Image quality: Excellent. CSF spaces: Basal cisterns are patent. No extra-axial fluid collections. The ventricles are symmetric in size and shape. Brain: No intracranial bleeds or masses. There is cerebral volume loss for age, with resultant ventricular and sulcal prominence. There are periventricular and deep white matter chronic small vessel ischemic changes. Small, oval shaped hypoattenuating focus noted in the right aspect of the little which could represent a subacute lacunar infarct versus artifact. Old, small, lacunar infarcts noted in the left cerebellar hemisphere in the left thalamus. Old small left occipital lobe infarct is noted. There is intracranial internal carotid artery atherosclerosis. Skull and face: Calvarium and visualized facial bones appear intact, without suspicious lesions. Sinuses: Visualized sinuses and mastoids are clear. IMPRESSION: 1. Oval hypoechoic attenuating focus in the right aspect of the little which could represent subacute lacunar infarct versus artifact. Recommend MRI of the brain for further evaluation when clinically feasible. 2. Old left occipital lobe infarct, old left cerebral hemisphere lacunar infarct and old left thalamic lacunar infarct. 3. No intracranial hemorrhage. Dictated by: Karuna Robison MD, PhD on 12/26/2017 at 8:00 Approved by: Karuna Robison MD, PhD on 12/26/2017 at 8:05
[2017-12-25 20:23] VITALS: BP 120/88; PULSE 108; RESP 20; TEMP 36.7; O2SAT 98
[2017-12-25 21:06] VITALS: BP 129/92; PULSE 98; RESP 16; O2SAT 93
[2017-12-25 21:16] LABS: Add Manual Diff / Slide Review NO; Eosinophils Percent Auto 1.8 % (2-4); Hematocrit 45.8 % (36-46); Hemoglobin 14.9 g/dL (12.0-16.0); Lymphocytes Percent Auto 24.4 % (25-40); Mean Corpuscular HGB Conc 32.4 % (30-36); Mean Corpuscular Hemoglobin 30.7 PG (26-34); Mean Corpuscular Volume 94.9 fL (80-100); Monocytes Percent Auto 11.8 % (3-14); Neutrophils Absolute Auto 6000 /uL (3000-5900); Platelet Count 247 X10^3/uL (150-400); Red Blood Cell Count 4.83 X10^6/uL (4.0-5.2); Red Cell Distribution Width 18.9 % (11.6-14.8); White Blood Cell Count 9.6 X10^3/uL (4.5-11.0)
[2017-12-25 21:19] LABS: Prothrombin Time 44.8 SECONDS (10.1-12.7)
[2017-12-25 21:21] LABS: PTT Partial Thromboplastin Tim 51 SECONDS (26.4-36.2)
[2017-12-25 21:25] LABS: Lactate (Lactic Acid) 1.5 mmol/L (0.7-2.1)
[2017-12-25 21:29] LABS: Alanine Aminotransferase 25 IU/L (9-52); Albumin 3.5 g/dL (3.5-5.0); Albumin Globulin Ratio 0.9 (1.0-2.8); Alkaline Phosphatase 163 U/L (38-126); Aspartate Aminotransferase 55 IU/L (14-36); BUN Creatinine Ratio 27.1 (6-22); Bilirubin Total 2.9 mg/dL (0.2-1.3); Blood Urea Nitrogen 19 mg/dL (7-17); Calcium 8.8 mg/dL (8.4-10.2); Carbon Dioxide 28 mmol/L (22-32); Chloride 105 mmol/L (98-107); Creatine Kinase 73 U/L (30-135); Estimated Glomerular Filt Rate > 60.0 mL/min (>60); Globulin 3.8 g/dL (1.7-4.1); Glucose 112 mg/dL (80-110); Sodium 143 mmol/L (137-145); Total Protein 7.3 g/dL (6.3-8.2)
[2017-12-25 21:36] VITALS: BP 121/74; PULSE 102; RESP 26; O2SAT 93
[2017-12-25 21:36] LABS: HEMOLYSIS 106 (0-50)
[2017-12-25 21:37] LABS: Potassium 4.9 mmol/L (3.4-5.1)
[2017-12-25 21:41] LABS: Troponin I 0.018 ng/mL (0.01-0.034)
[2017-12-25 21:44] LABS: Procalcitonin < 0.05 ng/mL (<0.5)
--- NOTE | 2017-12-25 21:47 | PC.NURSE ---
Assisted pt with bedpan-- no void
[2017-12-25 23:24] VITALS: BP 105/71; PULSE 108; RESP 18; O2SAT 95
--- NOTE | 2017-12-25 23:26 | PC.NURSE ---
Pt incontinent of urine. Gave bedpan - no void. Complete linen change done.
[2017-12-26] VITALS (10 sets, daily range): BP systolic 102–132; BP diastolic 59–91; PULSE 102–116; RESP 18–21; TEMP 36.4–36.9; O2SAT 92–99; BMI 27.7; BMI 26.9
--- NOTE | 2017-12-26 | DI.US.S_ITS ---
PROCEDURE: US ABDOMEN COMPLETE INDICATIONS: ELEVATED BILIRUBIN TECHNIQUE: Real-time scanning was performed of the abdominal and retroperitoneal organs, with image documentation. COMPARISON: [facility], US, ABDOMEN COMPLETE, 02/20/2017, 12:53. [facility], CT, ABDOMEN/PELVIS WITHOUT CONTRAS, 03/05/2017, 15:48. FINDINGS: Study limited by body habitus and dementia Liver: Liver is normal in size and homogeneous in echotexture. Gallbladder: Gallbladder shows no calcified stones. Wall thickness is normal. There is a 1.7 cm soft tissue mass in the posterior wall showing no internal blood flow and no mobility. Differential includes large polyp, sludge ball and tumor. Biliary ducts: Intrahepatic bile ducts are non-dilated. Extrahepatic bile duct caliber measures 4.5 mm. Normal is 6-7 mm or less in diameter, or 10 mm or less post-cholecystectomy. Pancreas: Visualized portions of the pancreas are sonographically normal. Spleen: Spleen is normal in size and homogeneous in echotexture. Kidneys: Kidneys are normal in size and echotexture. Right kidney measures 11.9 cm long; left kidney measures 10.5 cm long. No hydronephrosis or nephrolithiasis. No solid masses. Aorta: Visualized aorta is normal in caliber at less than 3 cm. proximal segment measures 1.7 cm. The mid and distal segments are obscured. Iliacs: Iliac vessels are obscured by bowel gas. IVC: Intrahepatic inferior vena cava is patent. Miscellaneous: There is free fluid in the lower abdomen bilaterally. There is also a right pleural effusion. IMPRESSION: Study is limited by amount of bowel gas and body habitus. Patient not able to fully cooperate. 1. Gallbladder contains a low density mass. CT abdomen with liver protocol is suggested to determine level of enhancement as gallbladder carcinoma cannot be excluded. 2. Small amount of ascites. Right pleural effusion. 3. Abdominal aortic aneurysm cannot be excluded by this exam. Iliac vessels are also obscured. Dictated by: Sage Ocampo M.D. on 12/26/2017 at 14:11 Approved by: Sage Ocampo M.D. on 12/26/2017 at 14:20
--- NOTE | 2017-12-26 00:56 | PC.NURSE ---
Pt does not know her meds, unable to complete med rec
--- NOTE | 2017-12-26 02:25 | PC.ADMIT ---
[id number] Admission Note: The patient,Yelena Pedersen,82 y/o, was given written information regarding hospital policies, unit procedures and contact persons. Patient's smoking status: Never smoker. Vital Signs - 8 hr 12/25/17 20:23 12/25/17 21:06 12/25/17 21:36 Temperature 98.1 F Pulse Rate 108 H 98 H 102 H Respiratory Rate 20 16 26 H Blood Pressure 120/88 H Blood Pressure [Left Arm] 129/92 H 121/74 H Pulse Oximetry 98 93 93 12/25/17 23:24 12/26/17 01:18 12/26/17 01:30 Temperature 98.5 F Pulse Rate 108 H 102 H 114 H Respiratory Rate 18 20 20 Blood Pressure 128/59 H 123/63 H Blood Pressure [Left Arm] 105/71 Pulse Oximetry 95 93 93 Patient admitted to room 221 via stretcher, slider board required, patient is stiff and moans during turning, denies pain at rest. On Telemetry, HR irregular 105-115, other VSS, SpO2 92-98% on RA. Patient is confused, has word salad at times, loses focus easily. SL intact.
--- NOTE | 2017-12-26 05:34 | ED_ITS ---
HPI - Weakness General Chief complaint: Weakness Stated complaint: Weakness Time Seen by Provider: 12/25/17 20:06 Source: family Limitations: other ( Dementia) History of Present Illness HPI Narrative: patient is a 82-year-old female presenting with increasing weakness. She was released from the hospital on 11/09/2017 after a left hip fracture. She was sent to rehab and released on December 16. Family says that she initially was walking around with a walker however over the last week she has become not ambulatory and more confused. He thought that she had been slurring her words she has become overall more confused. They state that they have not been giving her any pain medications. She was previously able to get to the restroom however she is no longer able to do so. The patient herself has no real complaints and is an extremely poor historian. MD Complaint: generalized weakness Related Data Home Medications Medication Instructions Recorded Confirmed chlorpheniramine maleate 4 mg PO PRN PRN #0 03/03/17 11/03/17 multivitamin [Multiple Vitamins] 1 tab PO QDAY #0 03/03/17 11/03/17 omega 2-hie-ohq-fish oil [Fish Oil] 1,200 mg PO QDAY #0 03/03/17 11/03/17 sennosides [senna] 8.6 mg PO PRN PRN #0 03/03/17 11/03/17 alprazolam 0.25 mg PO Q8HP PRN #0 07/13/17 11/03/17 carboxymethylcellulose sodium 15 ml OP QDAY #0 08/01/17 11/03/17 [Refresh Tears] chlorthalidone 50 mg PO DAILY 11/03/17 11/03/17 tramadol 50 mg PO BEDTIME 11/03/17 11/03/17 bisoprolol fumarate 5 mg tablet 10 mg PO Q12H #0 tab 12/21/17 Previous Rx's Medication Instructions Recorded thyroid (pork) [Ingleside Thyroid] 120 mg PO QDAY #30 tab 08/01/17 potassium chloride [Klor-Con M20] 20 meq PO TIDWM #21 tab 11/09/17 furosemide 20 mg tablet 20 mg PO DAILY #30 tab 12/21/17 sertraline 25 mg tablet 25 mg PO DAILY #30 tab 12/21/17 spironolactone 25 mg tablet 12.5 mg PO BID #30 tab 12/21/17 warfarin 2 mg tablet 1 mg PO .QSun,TUe,FABIÁN,FRi #30 tab 12/21/17 warfarin 3 mg tablet 3 mg PO QMWF #30 tab 12/21/17 Allergies Allergy/AdvReac Type Severity Reaction Status Date / Time bumetanide [BUMETANIDE] Allergy Unknown Verified 10/21/17 14:06 carisoprodol [CARISOPRODOL] Allergy Unknown Verified 10/21/17 14:06 digoxin [DIGOXIN] Allergy Unknown Verified 10/21/17 14:06 flecainide [FLECAINIDE] Allergy Unknown Verified 10/21/17 14:06 ibuprofen [IBUPROFEN] Allergy Unknown Verified 10/21/17 14:06 lactose [LACTOSE] Allergy Unknown Verified 10/21/17 14:06 Penicillins [PENICILLINS] Allergy Unknown Verified 10/21/17 14:06 quinidine [QUINIDINE] Allergy Unknown Verified 10/21/17 14:06 Quinolones [QUINOLONES] Allergy Unknown Verified 10/21/17 14:06 Sulfa (Sulfonamide Allergy Unknown Verified 10/21/17 14:06 Antibiotics) [SULFA (SULFONAMIDE ANTIBIOTICS)] verapamil [VERAPAMIL] Allergy Unknown Verified 10/21/17 14:06 donepezil AdvReac Hallucinati Verified 11/03/17 11:09 ng Review of Systems Review of Systems Unable to obtain [facility] Medical History Closed fracture of neck of left femur (Acute) Atrial fibrillation (Chronic) Dementia (Chronic) Ischemic cardiomyopathy (Acute) Coronary artery disease (Chronic) Gout (Chronic) Hypothyroid (Chronic) Social History household members: children Smoking Status: Never smoker alcohol intake: never Exam Initial Vital Signs Initial Vital Signs: Vital Signs Temperature 98.1 F 12/25/17 20:23 Pulse Rate 108 H 12/25/17 20:23 Respiratory Rate 20 12/25/17 20:23 Blood Pressure 120/88 H 12/25/17 20:23 Pulse Oximetry 98 12/25/17 20:23 Const General: No in distress, anxious ( agitated) and frail appearing Orientation: alert and awake [facility] Head: normal to inspection, normocephalic, atraumatic, No abrasion, No laceration and No palpable skull fracture Eyes General: appearance normal, both eyes and all related structures Eyelids: eyelids normal Pupils: PERRL EOM: EOM intact bilaterally Neck Neck: normal visual inspection, full ROM, no meningeal signs and trachea midline Chest Chest: normal inspection of the chest Resp Effort & Inspection: normal respiratory effort Auscultation: clear to auscultation bilaterally, no rales, no rhonchi and no wheezes Cardio Rhythm: abnormal rhythm irregularly irregular Heart Sounds: S1 normal and S2 normal GI Palpation: soft, No firm and No tender General: No CVA tenderness Back/Spine/Pelvis Back: normal to inspection, No back tenderness and No CVA tenderness Skin General: no rashes or lesions noted Neuro General: alert, awake and oriented ( person) Cranial Nerves: CN's II-XI intact bilaterally Motor: No strength 5/5 throughout and other ( overall weak all extremities drift to gurney) Extrem General: normal to inspection and capillary refill normal Course Orders Ordered: ED Orders 12/25/17 20:55 Complete Blood Count AUTO DIFF Stat Comprehensive Metabolic Panel Stat Lactate (Lactic Acid) Stat Partial Thromboplastin Time Stat Procalcitonin Stat Prothrombin Time INR Stat Troponin & CK Cardiac Panel Stat 12/25/17 21:07 EKG-12 Lead Stat 12/25/17 21:45 Blood Culture Stat 12/26/17 01:46 Consult to Physician Routine 12/26/17 02:14 Consult to Dietitian, Adult Routine 12/26/17 06:00 Troponin I Stat 12/26/17 06:41 Prothrombin Time INR Stat Sodium Chloride (Normal Saline 0.9% Flush) 10 ml IV BID IRIS Sodium Chloride (Normal Saline 0.9% Flush) 10 ml IV PRN PRN PRN Reason: Flush Vital Signs - 8 hr 12/25/17 21:36 12/25/17 23:24 12/26/17 01:18 Temperature Pulse Rate 102 H 108 H 102 H Respiratory Rate 26 H 18 20 Blood Pressure 128/59 H Blood Pressure [Left Arm] 121/74 H 105/71 Pulse Oximetry 93 95 93 12/26/17 01:30 12/26/17 04:25 Temperature 98.5 F 97.7 F Pulse Rate 114 H 110 H Respiratory Rate 20 21 Blood Pressure 123/63 H 117/75 Blood Pressure [Left Arm] Pulse Oximetry 93 96 MDM - Weakness Lab Data Result diagrams: 12/25/17 20:55 12/25/17 20:55 Lab Results 12/25/17 12/25/17 12/25/17 Range/Units 20:55 20:55 20:55 WBC 9.6 (4.5-11.0) X10^3/uL RBC 4.83 (4.0-5.2) X10^6/uL Hgb 14.9 (12.0-16.0) g/dL Hct 45.8 (36-46) % MCV 94.9 (80-100) fL MCH 30.7 (26-34) PG MCHC 32.4 (30-36) % RDW 18.9 H (11.6-14.8) % Plt Count 247 (150-400) X10^3/uL Neut % (Auto) 62.0 (50-75) % Lymph % (Auto) 24.4 L (25-40) % Canadian % (Auto) 11.8 (3-14) % Eos % (Auto) 1.8 L (2-4) % Baso % (Auto) 0.0 (0-2) % Neut # (Auto) 6000 H (0702-5088) /uL PT 44.8 H (10.1-12.7) SECONDS INR 4.0 H (0.9-1.3) APTT 51 H D (26.4-36.2) SECONDS Sodium (137-145) mmol/L Potassium (3.4-5.1) mmol/L Chloride (98-107) mmol/L Carbon Dioxide (22-32) mmol/L BUN (7-17) mg/dL Creatinine (0.52-1.04) mg/dL Estimated GFR (>60) mL/min BUN/Creatinine Ratio (6-22) Glucose (80-110) mg/dL Lactate (0.7-2.1) mmol/L Calcium (8.4-10.2) mg/dL Total Bilirubin (0.2-1.3) mg/dL AST (14-36) IU/L ALT (9-52) IU/L Alkaline Phosphatase (38-126) U/L Total Creatine Kinase (30-135) U/L CK-MB (CK-2) CK-MB (CK-2) Rel Index Troponin I (0.01-0.034) ng/mL Total Protein (6.3-8.2) g/dL Albumin (3.5-5.0) g/dL Globulin (1.7-4.1) g/dL Albumin/Globulin Ratio (1.0-2.8) Procalcitonin < 0.05 (<0.5) ng/mL 12/25/17 12/25/17 12/25/17 Range/Units 20:55 20:55 20:55 WBC (4.5-11.0) X10^3/uL RBC (4.0-5.2) X10^6/uL Hgb (12.0-16.0) g/dL Hct (36-46) % MCV (80-100) fL MCH (26-34) PG MCHC (30-36) % RDW (11.6-14.8) % Plt Count (150-400) X10^3/uL Neut % (Auto) (50-75) % Lymph % (Auto) (25-40) % Canadian % (Auto) (3-14) % Eos % (Auto) (2-4) % Baso % (Auto) (0-2) % Neut # (Auto) (9336-7701) /uL PT (10.1-12.7) SECONDS INR (0.9-1.3) APTT (26.4-36.2) SECONDS Sodium 143 (137-145) mmol/L Potassium 4.9 (3.4-5.1) mmol/L Chloride 105 (98-107) mmol/L Carbon Dioxide 28 (22-32) mmol/L BUN 19 H (7-17) mg/dL Creatinine 0.70 (0.52-1.04) mg/dL Estimated GFR > 60.0 (>60) mL/min BUN/Creatinine Ratio 27.1 H (6-22) Glucose 112 H (80-110) mg/dL Lactate 1.5 (0.7-2.1) mmol/L Calcium 8.8 (8.4-10.2) mg/dL Total Bilirubin 2.9 H (0.2-1.3) mg/dL AST 55 H (14-36) IU/L ALT 25 (9-52) IU/L Alkaline Phosphatase 163 H (38-126) U/L Total Creatine Kinase 73 Cancelled (30-135) U/L CK-MB (CK-2) Cancelled CK-MB (CK-2) Rel Index Cancelled Troponin I 0.018 Cancelled (0.01-0.034) ng/mL Total Protein 7.3 (6.3-8.2) g/dL Albumin 3.5 (3.5-5.0) g/dL Globulin 3.8 (1.7-4.1) g/dL Albumin/Globulin Ratio 0.9 L (1.0-2.8) Procalcitonin (<0.5) ng/mL Imaging Data Chest x-ray: Radiologist's impression: PROCEDURE: XR CHEST 1V INDICATIONS: weakness TECHNIQUE: One view of the chest was acquired. COMPARISON: [facility], , XR CHEST 1V, 11/07/2017, 11:54. [facility], , CHEST 1 VIEW, 03/06/2017, 12:20. [facility], CR, XR CHEST 1 VIEW, 04/25/2017, 21:44. FINDINGS: Surgical changes and devices: Pacemaker. Lungs and pleura: Diffuse increased pulmonary vascularity is present as well as mild right and minimal left effusions. Mediastinum: Mediastinal contours appear normal. Heart size is enlarged. Bones and chest wall: No suspicious bony lesions. Overlying soft tissues appear unremarkable. IMPRESSION: Cardiomegaly with increased vascularity and effusions most consistent with edema. Dictated by: Radha Ramos M.D. on 12/25/2017 at 21:02 pelvis x-ray: Radiologist's impression: PROCEDURE: XR PELVIS 1-2V INDICATIONS: recent left fx TECHNIQUE: One view(s) of the pelvis acquired. COMPARISON: [facility], CR, XR HIP W PEL IF DONE LT 2V, 11/04/2017, 16:17. [facility], CR, XR HIP W PEL IF DONE LT 2V, 11/03/2017, 3:25. FINDINGS: Bones: Left femoral pinning is present. Hardware is intact. Minimal appearance of fracture lucency persists. Significant degenerative changes are present within the right hip. Degenerative changes are also present within the lower lumbar spine. Soft tissues: Visualized bowel gas pattern is normal. No suspicious soft tissue calcifications. IMPRESSION: No visualized acute fracture or dislocation. However, if clinical concern and/or pain persist, short interval imaging followup in 7-10 days is recommended , as occult injury cannot be definitively excluded. Dictated by: Radha Ramos M.D. on 12/25/2017 at 21:03 CT head: Radiologist's impression: third shift lieutenant report: Overall hypodensity right little represent interval finding compared to prior study. This may represent nonhemorrhagic infarction of indeterminate age. No mass effect or midline shift. 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 Encephalomalacia unchanged and left occipital lobe compared to prior study. Mild to moderate age -related atrophic change. Mild to moderate age-related ischemic demyelinization ac of white matter. Further evaluation with MRI may be helpful if clinically indicated. ECG Data Attestation: I personally reviewed and interpreted this ECG as follows: Prior ECG tracings: available for review Interpretation: EKG 1.: Atrial fibrillation rate [address] depression and T- wave inversion leads 2 and 3 and precordial leads including V4, V5 and V6. This is new from previous EKGs. Also new right bundle branch block EKG 2.: AFib rate [address] depressions and T-wave inversions in p Inferior and precordial leads MDM Narrative Medical decision making narrative: patient has new EKG changes with ST depressions not seen on any previous EKGs even when AFib with RVR is present. she is noted to have a supratherapeutic eye and are as well but no acute bleeding on CT. She has no leukocytosis or sign of infection. His she remains extremely weak and will need assistance. It is unclear if she is having a chest pain she is moaning and crying but is comforted with family is there and with somebody enters the room. CT suggested of possible stroke but age is indeterminate. She has no focal deficits, But isn't able to fully participate in an NIH stroke scale. Dr. Slade accepts patient for observation. Discharge Plan Departure Patient Disposition: Admitted as Observation Clinical Impression: Chest pain Discharge Date/Time: 12/26/17 01:30 Interventions: ED Discharge Assessment Last Done: 12/26/17 01:18 Admit Date/Time: 12/26/17 01:15 Admit Provider: Joey Slade
[2017-12-26 06:11] LABS: Prothrombin Time 50.6 SECONDS (10.1-12.7)
[2017-12-26 06:16] LABS: INR 4.5 (0.9-1.3)
[2017-12-26 06:17] LABS: Appearance Urine UA CLOUDY; Bilirubin Urine UA 1+ (NEGATIVE); Color Urine UA YELLOW; Glucose Urine UA NEGATIVE (Normal); Ketones Urine UA TRACE (NEGATIVE); Leukocyte Esterase Urine UA 3+ (NEGATIVE); Nitrite Urine UA POSITIVE (Negative); Occult Blood Urine UA 3+ (Negative); Protein Urine UA 3+ (Negative); pH Urine UA 6.5 (4.5-8.0)
--- NOTE | 2017-12-26 06:21 | PC.NURSE ---
Addendum entered by Mckenzie Ernst R.N. 12/26/17 06:50: Pt is oliguric, only peed 180mL for my shift; plus one SMALL incontinent episode. Will encourage PO intake Original Note: Pt is alert to self, VSS, tachycardic at 111. Tele on showing A-fib. Continuous pulse ox on showing 96% on room air. Pt is very weak, requiring a 2 person assist to turn in bed. Pt called for bedpan and voided, Urine sent to lab. Urine was very dark orange. Skin is intact. T&P q2h. Pt's mood is very labile, she calls out crying at times but denies any pain and is relieved when someone is in the room with her. Pt is not sure of any of her home meds and family will need to bring in a med list. Code status currently unknown. Bed alarm is on. Call vo in reach. Pt ate jello and drank some water with no problem.
[2017-12-26 06:39] LABS: Amorphous Sediment Urine 1+; Bacteria Urine Few (2-10); RBC Urine 5-10/HPF (0-5/HPF); Squamous Epithelial Cell Urine 0-1 /HPF; WBC Urine >100/HPF (0-5/HPF)
[2017-12-26 06:40] LABS: Culture Indicated Urine Specimen Cultured; Ictotest Urine Negative (Negative); Mucus Urine 3+ (Negative)
--- NOTE | 2017-12-26 09:02 | CM.DANOTE ---
DCP: Case received, EMR reviewed. Placed this environmental restoration planner's name on board, introduced self, patient has dementia, information received over phone from son. DCP template completed with information currently available. Patient is an 82 year old female who admitted early this am to the care of the hospitalist team. PCP: Dr. Wood. Payer: confirmed Medicare/[employer] Patient came in with generalized weakness, carries diagnosis of dementia. Lives at home with son, and he has noticed that she has become significantly weaker. Had been in a skilled facility secondary to left hip fracture, and was released on 12/16. Son is hoping to get mom back to [facility]. Patient is observation status, option may be home health. P: DCP continue to plan and assess, and note if status gets changed to inpatient. Debbie Paige RN/Litigation Claim Representative
[2017-12-26] MEDS: SODIUM CHLORIDE 0.9% FLUSH 10 ML IV ×3 (09:21→20:47)
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
--- NOTE | 2017-12-26 11:48 | PC.NURSE ---
Addendum entered by Grace Mendoza R.N. 12/26/17 14:16: : Bladder scanned at 1245 (just to check for PVR after small incontinent void). Scan showed 135 ml. This junior underwriter spoke with Dr Pedraza and he ordered 1L of IV fluids which has been initiated. Abd ultrasound was completed. Lab in drawing now. Updated home med list, POLST form copied and in chart. Dr Pedraza updated re: POLST/DNR, code status ordered accordingly. [employer] on floor and will see her next. Bed alarm on. Original Note: Shift summary: Dozing intermittently. Awakens easily to voice/touch. When awake often cries out, but denies pain, chest pain, SOB or any other complaint. Stated, at one point, that she felt embarrassed but could not say why. Oriented to self only. Answers to questions can be slow, and they don't always make sense. Seems to trail off and lose her train of thought easily. Generalized weakness to all extremities. Per PT/OT- joyce lift for nursing transfers. Holding lunch for abd ultrasound (@1300). [employer] eval has been ordered. Lungs CTA, SpO2 on RA mid 90's. Cont pulse ox in place. HR irregular, A-fib per tele report. Resting quietly in the chair now. Call light in reach, chair alarm active.
--- NOTE | 2017-12-26 13:25 | OT.IP.EVAL ---
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 Social History Household Members children Living Arrangements House M2 OT-IP Current Condition Start: 12/26/17 13:02 Freq: Status: Active Protocol: Document 12/26/17 13:03 [facility] (Rec: 12/26/17 13:25 [facility] [id number]) Occupational Therapy Current Condition Current Condition Evaluation Date 12/26/17 Treatment Diagnosis Weakness Diagnosis Onset Date 12/26/17 Weight Bearing Status Weight Bearing Status Weight Bear as Tolerated M3 OT- IP Subjective and Pain Start: 12/26/17 13:02 Freq: Status: Active Protocol: Document 12/26/17 13:03 [facility] (Rec: 12/26/17 13:25 [facility] [id number]) OT- Subjective Occupational Therapy Visit Type Type Initial Evaluation Visit Start Time 10:47 Visit Stop Time 11:35 Total Visit Minutes 48 Occupational Therapy Visit Comments Patient Comments Pt wanting to use the BSC. Pt very tearful and having difficulty to follow commands. OT Pain Assessment Pain When Pain Assessed At Rest Pain Present Pain Present Denied Pain M4 OT- IP ADL's Start: 12/26/17 13:02 Freq: Status: Active Protocol: Document 12/26/17 13:03 [facility] (Rec: 12/26/17 13:25 [facility] [id number]) OT [id number] Comments OT Self-Feeding Comments Pt needing assist for hand to mouth for cup, decreased coordination of hands and would benefit from 1:1 assist for eating at this time. OT ADL-Grooming General Evaluation Grooming Ability Moderate Assistance Areas Needing Assistance Retrieving/Set-up of Grooming Items Combing/Brushing Hair Face Washing Comments OT Grooming Comments Pt due to decreased AROM/ strength, and motivation needing MODA for completeness. OT ADL-Dressing General Eval Lower Body Dressing Ability Total Assistance Areas Needing Assistance Underpants/Brief Socks Comments OT Dressing Comments Total assist for all LB dressing needs at this time. OT ADL-Toileting General Evaluation Toileting Ability Total Assistance Areas Needing Assistance Manage Clothing Perform Perineal Hygiene Devices Toileting Assistive Devices Commode Comments OT Toileting Comments Pt max assist x2, would be best for nursing to use sling or bed ray at this time for safety. 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 M7 OT- IP Mobility and Balance Start: 12/26/17 13:02 Freq: Status: Active Protocol: Document 12/26/17 13:03 [facility] (Rec: 12/26/17 13:25 [facility] [id number]) OT- Bed Mobility Assessment Rolling Type of Rolling Roll to Left Level of Assistance Maximum Assistance 2 Person Assistance Supine to Sit Supine to Sit Assist Maximum Assistance 2 Person Assistance Scooting Scooting to Edge of Bed Maximum Assistance 2 Person Assistance OT-Transfer Assessment Sit to and From Stand Sit to and from Stand Maximum Assistance 2 Person Assistance Transfers Transfer Ability Maximum Assistance 2 Person Assistance Technique Transfer Destination Bed Chair Transfer Technique Stand Step Pivot Devices Transfer Assistive Devices Gait Belt Comments Mobility Comments Pt tends to lean back into posterior tilt , very fearful and scared. OT- Balance Assessment Sitting Balance and Reactions Static Sitting Balance Ability Fair Dynamic Sitting Balance Ability Poor Standing Balance and Reactions Static Standing Balance Ability Poor Dynamic Standing Balance Ability Poor M8 OT- IP Objective Assessments Start: 12/26/17 13:02 Freq: Status: Active Protocol: Document 12/26/17 13:03 [facility] (Rec: 12/26/17 13:25 [facility] [id number]) OT Strength Upper Extremity Strength Assessment Bilaterally Impaired Comments Strength Comments 3-/5 for BUE strength, only able to raise arms to 90 degrees, having difficulty to hold cup with right hand. M9 OT- IP Assessment and Plan Start: 12/26/17 13:02 Freq: Status: Active Protocol: Document 12/26/17 13:03 [facility] (Rec: 12/26/17 13:25 [facility] [id number]) OT Summary Assessment and Plan Potential Rehabilitation Potential Fair Analytic Complexity at Evaluation Moderate Summary OT Impairments Pain Strength Balance Coordination Functional Cognition Functional Mobility Self-Feeding Grooming Dressing Toileting Bathing Toilet Transfers Shower Transfers Progress Towards Goals Slow Progress due to Pain Slow Progress due to Medical Issues Slow Progress due to Activity Tolerance Slow Progress due to Cognition Assessment Summary Pt MOD complexity now needing extensive assist x2 for all needs, decreased functional cognition, trouble following commands and will benefit from snf and possible LTC afterwards. Goals Self-Feeding Goal Minimal Assistance Grooming Goal Minimal Assistance Dressing Goal Moderate Assistance Toileting Goal Moderate Assistance Toilet Transfer Goal Moderate Assistance Shower Transfer Goal Moderate Assistance Days to Meet Goals 7 Frequency of Treatment Frequency Of Treatment Once a Day Treatment Plan OT Treatment Plan ADL Training Functional Cognition Training Functional Mobility Patient/Family Education Discharge Planning Other Treatment Recommendations and Next Eating and possible AED needed Treatment Focus . Discharge Recommendations OT Discharge Recommendations SNF Rehab LTAC Home Equipment Needs To be determined pending discharge.
[2017-12-26] MEDS: DEXTROSE 5%-0.45% NS 1,000 ML 100 ML IV (13:54)
--- NOTE | 2017-12-26 14:25 | PT.IIE ---
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 Prior Functional Level (Other details) Pt poor historian, unable to get accurate history. Social History Household Members children Living Arrangements House Number of Floors (Floors) One Floor Home Equipment Front Wheel Walker Physical Therapy Current Condition Current Condition Evaluation Date 12/26/17 Treatment Diagnosis impaired mobility Onset Date couple days ago Weight Bearing Status Weight Bearing Status Weight Bear as Tolerated Subjective Physical Therapy Visit Type Type Initial Evaluation Visit Start Time 10:35 Visit Stop Time 11:35 Total Visit Minutes 60 Notes co-eval with OT Physical Therapy Visit Comments Patient Comments Pt with illogical speech some of the session, not able to anser most questions. Short Term Goals unable to state Therapy Pain Assessment Pain When Pain Assessed During Mobility Pain Present Pain Present Pain Reported Location Left Hip Pain Behaviors Crying Facial Grimacing Wincing PT-Bed Mobility Assessment Rolling Level of Assist Maximal Assistance Supine to Sit Supine to Sit Total Assistance 2 Person Assistance Head of Bed Elevated Scooting Scooting to Edge of Bed Moderate Assistance Scooting Up and Down in Bed Dependent PT-Transfer Assessment Sit to and From Stand Sit to and from Stand Maximum Assistance 2 Person Assistance Equipment Transfer Assistive Device Gait Belt Transfers Transfer Destination Chair Bedside Commode Transfer Technique Stand Pivot Transfer Ability Level of Assist Maximum Assistance 2 Person Assistance Comments Mobility Comments PT knees blocked pt's knees, PT hugging pt and holding onto posterior gait belt, pt hugging PT around upper back/ shoulders. Pt with variable ability to fully participate, OT helping with initial sit> stand and then with the lateral movement of the pivot transfer. Pt able to tolerate standing with assist approx 15 seconds while OT helped with toileting tasks. Gait Assessment Comments Gait Comments not appropriate to assess Stair Climbing Assessment Comments Stair Climbing Comments not appropriate to assess PT-Balance Assessment Sitting Balance and Reactions Static Sitting Balance Ability Fair Dynamic Sitting Balance Ability Poor Standing Balance and Reactions Static Standing Balance Ability Poor Dynamic Standing Balance Ability Poor Orientation Orientation/Cognition Level of Alertness Confusional State Orientation Name Birthday Place Comments difficult to assess full cognitive abilities Gross Range of Motion Upper Extremity ROM Assessment Bilaterally Impaired Impairments limited to 90deg elevation Lower Extremity ROM Assessment Within Functional Limits Strength Comments Strength Comments pt unable to follow cues for strength testing Physical Therapy Treatment Education Education Provided Safety PT Summary Assessment and Plan Potential Rehabilitation Potential Fair Status of Condition at Evaluation Evolving Summary Impairments Strength Balance Cognition Bed Mobility Transfers Gait Activity Tolerance Progress Towards Goals Slow Progress due to Medical Issues Assessment Summary Pt with gross weakness and significant functional impairments in all areas of mobility. Pt is limited by impaired cognition as well. Pt is far below son's reported description of pt's functional baseline. Pt's progress is expected to be slow, but pt does have potential for functional improvement. Pt was recently at a SNF and progressed enough to go home. It is worth trying again, but pt and family may need to consider transitioning to LTC if there is no lasting improvement this time. Goals Bed Mobility Goal Moderate Assistance Transfer Goal Moderate Assistance Gait Goal Moderate Assistance Four Wheel Walker Gait Distance 15 Days to Meet Goals 4 Frequency of Treatment Frequency Of Treatment Once a Day Treatment Plan Physical Therapy Treatment Plan Bed Mobility Training Transfer Training Gait Training Therapeutic Exercise Recommendations To Nursing Amount of Assist Needed Mechanical Lift Discharge Recommendations PT Discharge Recommendations SNF Rehab
[2017-12-26] MEDS: NITROFURANTOIN ER 100 MG CAPSULE PO ×2 (15:01→20:47)
[2017-12-26 15:10] LABS: Bilirubin Direct 1.4 mg/dL (0.0-0.4)
--- NOTE | 2017-12-26 16:23 | ST.IPIE ---
Past Medical History (Last Updated 12/26/17 @ 11:02 by Joselito Pedraza MD) History of stroke (Chronic Medical) Closed fracture of neck of left femur (Chronic Medical) Atrial fibrillation (Chronic Medical) Chronic. CHF (congestive heart failure) (Chronic Medical) Systolic Presence of combination internal cardiac defibrillator (ICD) and pacemaker (Chronic Medical) Dementia (Chronic Medical) Ischemic cardiomyopathy (Acute Medical) Coronary artery disease (Chronic Medical) PR 2017 Gout (Chronic Medical) Hypothyroid (Chronic Medical) ST IP Initial Evaulation Report COMIC BOOK ARTIST Clinical Swallow Evaluation Start: 12/26/17 16:02 Freq: Status: Active Protocol: Document 12/26/17 15:00 MRM (Rec: 12/26/17 16:22 MRM [id number]) Clinical Swallow Evaluation Session Time Visit Start Time 14:15 Visit Stop Time 14:45 Total Visit Minutes [address] Pedraza Reason for Referral Speech and Swallowing Setting Assessment Location Acute Care Visit Type Note Type Initial Evaluation Next Note Type Next Note Type Treatment Note Patient Information Identification Type Name ID Wristband History Patient is an 82-year-old female admitted to [facility] due to weakness. She was unable to provide her own medical history. Her family did not that she has recently walking around using a walker, but has since become non ambulatory and more confused. Her son also noted that she has begun to slur her words. She was recently admitted to [facility] with a left hip fracture and was discharged on December 09 and was sent to rehab, discharging on December 16. PMH: History of stroke (Chronic) Closed fracture of neck of left femur (Chronic) Atrial fibrillation CHF Presence of combination internal cardiac defibrillator and pacemaker Dementia Ischemic cardiomyopathy CAD Gout Hypothyroid She is currently being treated for a possible UTI and possible encephalopathy Subjective Observations Patient was resting in bed upon ST arrival. Her lunch tray was still in her room and trials were performed from her lunch. No complaints of pain pre/post treatment. Patient observed to be very confused with altered mental status. She was able to follow simple commands, but had reduced visual scanning and perseverated on various things (staring at the TV after COMIC BOOK ARTIST turned it off; mastication; etc). She was observed to grasp at objects on her lunch tray, but was not able to reach desired objects or pick them up. Unable to self-feed. Evaluation Liquids Trialed Thin Solids Trialed Puree Dysphagia Mechanical Mechanical Soft Administration Type Straw Dependent Feeding Oral Impairment Moderately Impaired Oral Strategies Upright at 90 degrees Lingual Sweep Controlled Bite/Sip Size Alternate Liquids/Solids Dementia Strategies Oral Phase Comments Able to receive PO from spoon, fork and straw. Able to bite sandwich with teeth. Upper and lower dentition in place, unable to detect natural v. false teeth. Lingual ROM and strength WFL, but coordination was slow and reduced. Observed anterior spillage bilaterally with trials of egg salad sandwich and soft fruit . Able to tolerate thin liquids via straw without anterior spillage. Audible, quick swallow observed after trials of thin, suspected due to reduced lingual seal, allowing premature posterior spillage into pharynx. Perseveration of mastication observed consistently with solids. Mild-moderate diffuse oral residue observed on lingual surface after trials of egg salad, soup and fruit. Able to clear with a liquid wash. Pharyngeal Impairment WFL Pharyngeal Strategies Sitting Upright (90 deg) Small Bites and Sips Alternate Liquids/Solids Pharyngeal Phase Comments No overt s/s of aspiration observed throughout the meal. Patient able to tolerate thin liquids, puree textures, dysphagia mechanical textures, and mechanical soft textures without pharyngeal difficulty. No change in vocal quality observed. Hyolaryngeal elevation and excursion observed to be adequate and timely. No pharyngeal impairment observed through safe swallowing behavior. Findings Dysphagia Type Mild-moderate oral dysphagia secondary to reduced congitive state Rehabilitation Potential Good Impressions Patient presents with mild- moderate oral dysphagia secondary to altered mental status (possible UTI, dementia , previous CVAs). She was unable to self-feed at the time of the evaluation. Though 1:1 supervision, she was able to safely tolerate thin liquids, puree textures, dysphagia mechanical textures and mechanical soft textures. However, perseveration of mastication was consistent throughout trials, which increases her risk of choking or aspiration with more solid textures. Additionally, moderate oral residue was observed after trials of solids, decreasing with liquid washes. Patient was able to tolerate medication crushed in a carrier without difficulty. Diet Recommendations Liquids Order Thin Diet Order Dysphagia Mechanical Medication Recommendations Crushed in Carrier Comments Small bites/sips; PO only when alert Additional Dietary Needs Controlled Sips 1:1 Assistance Reminders to Use Strategies Aspiration Precautions Recommended Precautions Upright at 90 Degrees Alternate Liquids/Solids Small Bites/Sips Lingual Sweep Check for Pocketing Additional Precautions Liquid wash after solids to clear oral residue Treatment Plan Placement Recommendations after Alf Facility Discharge Appropriate for Therapy Yes Therapy Recommendations Patient will participate in cognitive evaluation when able to particiapte to determine her level of cognitive function and determine appropriate placement for discharge. Patient will participate in dyspahgia therapy to reduce her risk of choking or aspiration. Dysphagia Goals Patient will tolerate the safest, least restrictive diet without overt s/s of aspiration. Patient will masticate and clear PO without perseveration . Patient will implement lingual sweep and liquid wash to clear oral residue. Diet upgrade when appropriate
[2017-12-26] MEDS: SPIRONOLACTONE 25 MG TABLET 12.5 MG PO (20:47)
[2017-12-26] MEDS: BISOPROLOL 5 MG TABLET 10 MG PO (20:47)
--- NOTE | 2017-12-27 | DI.CT.S_ITS ---
PROCEDURE: CT ABDOMEN PELVIS W CON INDICATIONS: Possible gallbladder mass. TECHNIQUE: After the administration of intravenous contrast, 5 mm thick sections acquired from the diaphragm to the symphysis. 5 mm coronal and sagittal reformats were acquired. For radiation dose reduction, the following was used: automated exposure control, adjustment of mA and/or kV according to patient size. COMPARISON: [facility], CT, CT HEAD/BRAIN WO CON, 12/25/2017, 22:49. [facility], CT, ABDOMEN/PELVIS WITHOUT CONTRAS, 03/05/2017, 15:48. [facility], CT, THORAX WITHOUT CONTRAST, 02/28/2015, 13:43. [facility], CT, THORAX WITHOUT CONTRAST, 07/29/2014, 13:18. FINDINGS: Image quality is excellent. Partially imaged cardiac pacer wires noted. There is dilatation of the right and left atrium. There is calcified and noncalcified plaque of the abdominal aorta and branch vessels. There is a small right pleural effusion with adjacent atelectasis. Cirrhotic liver morphology with small volume perihepatic ascites noted. No convincing evidence of a gallbladder mass is identified. There is vicarious excretion of contrast into the gallbladder creating a fluid fluid level. There is diffuse fatty atrophy of the pancreas there is a subcentimeter calcified splenic artery aneurysm. Spleen is unremarkable. Perisplenic ascites noted. The bilateral adrenal glands and bilateral kidneys are unremarkable. No hydronephrosis. Additional ascites within the left paracolic bladder. No small bowel obstruction. Bladder demonstrates diffuse bladder wall thickening. There are moderate degenerative changes of the right hip joint. Partially imaged left intertrochanteric screws noted. There is a superior endplates Schmorl's node at the T12 level. IMPRESSION: #1. Cirrhosis with moderate volume ascites. #2. No definite gallbladder mass seen on CT. Recommend contrast enhanced MRI of the gallbladder for further evaluation. #3. Small right pleural effusion with adjacent atelectasis. #4. Enlargement of the left and right atrium of the heart. #5. Diffuse bladder wall thickening, which can be seen with bladder outlet obstruction or chronic infection/inflammation. Dictated by: Layton Temple M.D. on 12/27/2017 at 23:26 Approved by: Layton Temple M.D. on 12/27/2017 at 23:37
[2017-12-27 00:11] VITALS: BP 139/50; PULSE 93; RESP 18; TEMP 36.4; O2SAT 92
[2017-12-27 04:53] VITALS: BP 126/93; PULSE 100; RESP 20; TEMP 36.6; O2SAT 95
[2017-12-27 05:44] LABS: INR 4.2 (0.9-1.3); Prothrombin Time 47.1 SECONDS (10.1-12.7)
[2017-12-27] MEDS: LEVOTHYROXINE 125 MCG TABLET PO (06:14)
[2017-12-27 08:00] VITALS: BP 124/74; PULSE 104; RESP 17; TEMP 35.6; O2SAT 93
[2017-12-27] MEDS: NITROFURANTOIN ER 100 MG CAPSULE PO (08:53)
[2017-12-27] MEDS: SERTRALINE 25 MG TABLET 50 MG PO (08:53)
[2017-12-27] MEDS: FUROSEMIDE 20 MG TABLET PO (08:53)
[2017-12-27] MEDS: BISOPROLOL 5 MG TABLET 10 MG PO ×2 (08:53→22:20)
[2017-12-27] MEDS: SODIUM CHLORIDE 0.9% FLUSH 10 ML IV ×2 (08:54→22:19)
[2017-12-27] MEDS: SPIRONOLACTONE 25 MG TABLET 12.5 MG PO ×2 (08:54→22:20)
--- NOTE | 2017-12-27 11:12 | ST.IPTN ---
BRAILLE TYPIST Dysphagia Treatment BRAILLE TYPIST Dysphagia Treatment Start: 12/26/17 16:02 Freq: Status: Active Protocol: Document 12/27/17 10:58 [facility] (Rec: 12/27/17 11:08 [facility] [id number]) Dysphagia Treatment Session Time Visit Start Time 10:20 Visit Stop Time 10:35 Total Visit Minutes 15 Setting Assessment Location Acute Care Visit Type Note Type Treatment Note Next Note Type Next Note Type Treatment Note Patient Information Identification Type Name ID Card Subjective Observations Patient resting in chair, reclined, upon ST arrival. Nursing reported that patient did well with breakfast and taking her morning meds. No complaint of pain pre/post treatment. Patient was still confused, but more alert than yesterday. She heard someone in the hallway and stated, Oh that must be those sailors again. But when asked where she was, she did know she was in [facility]. Treatment Liquids Trialed Thin Solids Trialed Dysphagia Mechanical Administration Type Tea Spoon Straw Dependent Feeding Oral Strategies Upright at 90 degrees Controlled Bite/Sip Size Alternate Liquids/Solids Dementia Strategies Pharyngeal Strategies Sitting Upright (90 deg) Effortful Swallow Small Bites and Sips Alternate Liquids/Solids Additional Dysphagia Treatment Check for pocketing Strategies Treatment Activities Patient tolerated 3/4 of a cup of peaches and multiple sips of water from a straw. She was dependeng in all intake. Observed improved mastication time with reduced perseveration. Improved focus during intake as well. Able to indicate that she would like more to eat during treatment. No oral residue observed after multiple trials of soft fruit . Swallow response prompt with liquids and solids. No overt s/s of aspiration observed throughout the session. Assessment Patient Response to Treatment Excellent Rehab Potential Excellent Assessment of Improvement Patient is currently tolerating dysphagia mechanical textures with thin liquids without overt s/s of aspiration. She is improving in level of alertness, but she is still cognitively impaired and fatigues quickly. With cues, she is able to attend to mastication and swallowing in a timely manner, but without cues, she does still become lethargic and slow mastication . Swallow initiation is prompt and strong. At this time, she does not present with improved level of alertness for more solid textures and is tolerating dysphagia mechanical textures well. Continue curernt diet. Diet Recommendations Recommendations Continue Current Diet Liquids Order Thin Diet Order Dysphagia Mechanical Medication Recommendations Crushed in Carrier Additional Dietary Needs 1:1 Assistance Aspiration Precautions Recommended Precautions Upright at 90 Degrees Alternate Liquids/Solids Frequent Rest Periods Small Bites/Sips Effortful Swallow Check for Pocketing Treatment Plan Placement Recommendation after Discharge [facility]sp Facility Appropriate for Continued Therapy Yes Therapy Recommendations Continue current diet of dysphagia mechanical textures and thin liquids. Crush medication in carrier. Continue 1:1 assistance with meals. Monitor patient for appropriateness for cognitive evaluation. Dysphagia Goals Patient will tolerate the safest, least restrictive diet without overt s/s of aspiration. Patient will masticate and clear PO without perseveration . Patient will implement lingual sweep and liquid wash to clear oral residue. Diet upgrade when appropriate Follow Up Plan Daily
--- NOTE | 2017-12-27 11:32 | PT.IPTN ---
Physical Therapy Treatment Note M2 PT-IP Current Condition Start: 12/26/17 10:24 Freq: NEEDED Status: Active Protocol: Document 12/26/17 14:05 RS (Rec: 12/26/17 14:25 RS [id number]) Physical Therapy Current Condition Current Condition Evaluation Date 12/26/17 Treatment Diagnosis impaired mobility Onset Date couple days ago Weight Bearing Status Weight Bearing Status Weight Bear as Tolerated M3 PT-IP Subjective Start: 12/26/17 10:24 Freq: NEEDED Status: Active Protocol: Document 12/27/17 11:32 AB (Rec: 12/27/17 12:22 AB [email or web address]) Subjective Physical Therapy Visit Type Type Treatment Note Visit Start Time 11:32 Visit Stop Time 12:02 Total Visit Minutes 30 Number of PEPPER PICKER Visits 0 Physical Therapy Visit Comments Patient Comments pt agreeable to do therapy Therapy Pain Assessment Pain Present Pain Present Denied Pain M4 PT-IP Mobility and Gait Start: 12/26/17 10:24 Freq: NEEDED Status: Active Protocol: Document 12/27/17 11:32 AB (Rec: 12/27/17 12:22 AB [id number]) PT-Transfer Assessment Sit to and From Stand Sit to and from Stand Maximum Assistance 2 Person Assistance Use of Upper Extremities Equipment Transfer Assistive Device Gait Belt Front Wheeled Walker Orthotic/Prosthetic Devices or Brace: No Comments Mobility Comments pt completed sit to stand x 3 requiring max A x 2 and max cues and tolerated ~ 20 + 30 + 10 sec of standing. was able to do marching max A x 2 on 2nd standing with max cues. pt with increase posterior and lateral leaning to the L during standing and able to correct posture with max A and max cues on 1st standing but required total A on 3rd standing. Left pt sitting on chair and required max A x 2 for positioning. chair alarm on. call light and table placed within reach. M5 PT-IP Objective Assessments Start: 12/26/17 10:24 Freq: NEEDED Status: Active Protocol: Document 12/26/17 14:05 RS (Rec: 12/26/17 14:25 RS [id number]) Orientation Orientation/Cognition Level of Alertness Confusional State Orientation Name Birthday Place Comments difficult to assess full cognitive abilities Gross Range of Motion Upper Extremity ROM Assessment Bilaterally Impaired Impairments limited to 90deg elevation Lower Extremity ROM Assessment Within Functional Limits Strength Comments Strength Comments pt unable to follow cues for strength testing M6 PT-IP Treatment Start: 12/26/17 10:24 Freq: NEEDED Status: Active Protocol: Document 12/26/17 14:05 RS (Rec: 12/26/17 14:25 RS [id number]) Physical Therapy Treatment Education Education Provided Safety M7 PT-IP Assessment and Plan Start: 12/26/17 10:24 Freq: NEEDED Status: Active Protocol: Document 12/27/17 11:32 AB (Rec: 12/27/17 12:22 AB [email or web address]) PT Summary Assessment and Plan Potential Rehabilitation Potential Fair Summary Impairments Pain ROM Strength Balance Coordination Sensation Tone Cognition Bed Mobility Transfers Gait Activity Tolerance Progress Towards Goals Slow Progress due to Medical Issues Assessment Summary pt requiring max A x 2 and max cues with mobility and will benefit from SNF rehab to improve strength and function. Goals Bed Mobility Goal Moderate Assistance Transfer Goal Moderate Assistance Gait Goal Moderate Assistance Four Wheel Walker Gait Distance 15 Days to Meet Goals 4 Frequency of Treatment Frequency Of Treatment Once a Day Treatment Plan Physical Therapy Treatment Plan Bed Mobility Training Transfer Training Gait Training Therapeutic Exercise Recommendations To Nursing Amount of Assist Needed Mechanical Lift Discharge Recommendations PT Discharge Recommendations SNF Rehab
[2017-12-27 12:00] VITALS: BP 130/89; PULSE 95; RESP 16; TEMP 36.5; O2SAT 95
--- NOTE | 2017-12-27 12:39 | OT.IP.TRT ---
Occupational Therapy Treatment Note M2 OT-IP Current Condition Start: 12/26/17 13:02 Freq: Status: Active Protocol: Document 12/26/17 13:03 CCC (Rec: 12/26/17 13:25 CCC [email or web address]) Occupational Therapy Current Condition Current Condition Evaluation Date 12/26/17 Treatment Diagnosis Weakness Diagnosis Onset Date 12/26/17 Weight Bearing Status Weight Bearing Status Weight Bear as Tolerated M3 OT- IP Subjective and Pain Start: 12/26/17 13:02 Freq: Status: Active Protocol: Document 12/27/17 12:39 PJM (Rec: 12/27/17 16:12 PJM [id number]) OT- Subjective Occupational Therapy Visit Type Type Treatment Note Visit Start Time 12:10 Visit Stop Time 12:39 Total Visit Minutes 29 Occupational Therapy Visit Comments Patient/Caregiver Goals Pt unable to verbalize goal due to confusion. OT Pain Assessment Pain When Pain Assessed After Treatment Pain Present Pain Present Denied Pain M4 OT- IP ADL's Start: 12/26/17 13:02 Freq: Status: Active Protocol: Document 12/27/17 12:39 PJM (Rec: 12/27/17 16:12 PJM [id number]) OT LDQ-[id number]-[id number] General Evaluation Self-Feeding Ability Maximum Assistance Areas Needing Assistance Bringing Utensil to Mouth Cutting Food Drinking From Cup/Glass Loading Utensil Opening Containers Comments OT Self-Feeding Comments Pt needs hand over hand guiding to load utensil and bring it to mouth due to decreased attention/ concentration, apraxia and decreased self monitoring. Pt also requires hand over hand assist to hold cup and take small sips. Pt using R dominant hand to feed self. No signs and symptoms of aspiration noted this session on DMA diet with thin liquids. Minimal L side pocketing noted but pt able to clear it with shahzad with verbal cues. Poor appetite. Pt tends to lean to left in chair with frequent repositioning needed during meal to bring pt fully upright. OT ADL-Grooming General Evaluation Grooming Ability Maximum Assistance Areas Needing Assistance Face Washing Comments OT Grooming Comments Poor thoroughness with face washing. OT ADL-Oral Care General Eval Oral Care Ability Total Assistance M6 OT- IP Functional Cognition Start: 12/26/17 13:02 Freq: Status: Active Protocol: Document 12/27/17 12:39 PJM (Rec: 12/27/17 16:12 PJM [id number]) Cognitive Factors Limiting Selfcare Function Cognitive Ability Level of Alertness Drowsy Patient Orientation Name Place Cognitive Comments Cognitive Assessment Comments Pt oriented to self and hospital only. Minimal conversation which is confused . M9 OT- IP Assessment and Plan Start: 12/26/17 13:02 Freq: Status: Active Protocol: Document 12/27/17 12:39 PJIlana (Rec: 12/27/17 16:12 PJM [id number]) OT Summary Assessment and Plan Potential Rehabilitation Potential Fair Summary OT Impairments Balance Coordination Functional Cognition Functional Mobility Self-Feeding Grooming Dressing Toileting Bathing Toilet Transfers Shower Transfers Progress Towards Goals Slow Progress due to Medical Issues Assessment Summary Pt requires max assist with hand over hand guiding to feed self due to decreased attention/concentration, apraxia and decreased self monitoring. Therapist feeding pt for portion of meal to increase intake due to poor appetite. No adaptive equipt recommend for self feeding at present due to apraxia. Confusion persists with pt oriented to self and hospital only. Some minimal L side pocketing and pt leaning to L in chair this session. Pt is max to total assist with all other self care at present. Recommend SNF at discharge due to high care needs. Goals Self-Feeding Goal Minimal Assistance Grooming Goal Minimal Assistance Dressing Goal Moderate Assistance Toileting Goal Moderate Assistance Toilet Transfer Goal Moderate Assistance Shower Transfer Goal Moderate Assistance Days to Meet Goals 7 Frequency of Treatment Frequency Of Treatment Once a Day Treatment Plan OT Treatment Plan ADL Training Functional Cognition Training Functional Mobility Patient/Family Education Discharge Planning Discharge Recommendations OT Discharge Recommendations SNF Rehab Home Equipment Needs to be determined in next rehab setting
--- NOTE | 2017-12-27 12:47 | PC.NURSE ---
Pt alert to self only. She has been cooperative and tearful only once this shift--she expresses she doesn't like being left alone; music on, door open and near nursing station. Frequent checks and every 2 hour turn required, pt weak. Requires 2PA with joyce to bedside chair. Continue with P.T/O.T/S.T
--- NOTE | 2017-12-27 12:56 | CM.DPC ---
DCP Cont: Attempted to reach son regarding discharge plan for patient. At this time, patient is a mechanical lift, [address] has increased her Zoloft secondary to tearfulness of patient. Son originally wanted to look into [facility], but want to verify this with him. Patient is continuing to work with physical therapy as well. P: DCP to continue to plan and assess. Will confer with son regarding discharge plans. Debbie Paige RN/Photographic Spotter
[2017-12-27 16:00] VITALS: BP 138/81; PULSE 108; RESP 16; TEMP 36.7; O2SAT 94
--- NOTE | 2017-12-27 17:46 | PC.NURSE ---
Candice shift note: Patient awake, responds to simple commands. Arouses to voice and light touch. Generalized weakness noticed L > R. Repositioning frequently in bed with active alarm. Patient in labile mood, confusion noted most times. No family at bedside. Dysphagia diet in place. Patient with HOB up.
--- NOTE | 2017-12-27 18:38 | PM.PN.1 ---
Subjective Date Patient Seen: 12/27/17 Time Patient Seen: 18:00 Interval history: Patient feels uncomfortable due to urgency of urination. She is not able to provide any other history. Exam Vital Signs (past 8 hours): - 12/27/17 12:00 12/27/17 16:00 Temperature 97.7 F 98.1 F Pulse Rate 95 H 108 H Respiratory Rate 16 16 Blood Pressure 130/89 H 138/81 H Pulse Oximetry 95 94 Oxygen Delivery Method Room Air Oxygen Flow Rate 0 Narrative Exam Narrative: General: Elderly woman was in mild distress Lungs: Clear to auscultation bilaterally Heart: Regular rhythm, no murmur appreciated Abdomen: Soft, nontender Extremities: No pitting edema Objective Labs Result Diagrams: 12/25/17 20:55 12/25/17 20:55 Labs: Laboratory Results - last 24 hr 12/26/17 12/27/17 05:52 05:00 PT 47.1 H INR 4.2 H Urine Color Yellow Urine Appearance Cloudy Urine pH 6.5 Ur Specific [place] 1.020 Urine Protein 3+ H Urine Glucose (UA) Negative Urine Ketones Trace H Urine Occult Blood 3+ H Urine Nitrate Positive H Urine Bilirubin 1+ H Urine Urobilinogen 4.0 H Ur Leukocyte Esterase 3+ H Urine RBC 5-10/hpf H Urine WBC >100/hpf H Ur Squamous Epith Cells 0-1 /hpf Amorphous Sediment 1+ Urine Bacteria Few (2-10) H Urine Mucus 3+ H Ur Culture Indicated? Specimen cultured Assessment & Plan Plan: Assessment/Plan Narrative: 1. Acute weakness, confusion with possible encephalopathy: Unclear etiology. Head CT with findings of old left-sided strokes but also a questionable region in the right little which could represent subacute lacunar infarct versus artifact. Current neuro exam could represent old strokes verses findings of a more recent stroke. She has abnormal urinalysis with greater than 100 WBC but only few bacteria and is incontinent so unclear whether she has true UTI. Also her WBC and procalcitonin are normal. She has mildly elevated bilirubin of 2.9, mildly elevated AST and alkaline phosphatase of unclear significance and no previous lab values are available for comparison. Plan: Treat for possible UTI as below. Workup abnormal liver function testing as below. Consult PT, OT and ST. 2. Probable UTI: Preliminary urine culture grew gram-negative bacilli. Discontinue Macrobid. Start ceftriaxone IV 1 g Q 24 hr.. Patient has listed allergies to multiple antibiotics including penicillin, quinolones and sulfa. 3. Elevated liver function tests: Abdominal ultrasound showed possible mass in the gallbladder. She also has abnormal liver function enzymes. We will do abdominal CT scan with contrast to further evaluate. 4. Ischemic cardiomyopathy, chronic systolic heart failure, history of AICD pacemaker: She has chronic CHF pattern on x-ray but not in acute failure. There is question of chest pain complaint but troponin x2 negative. Continue telemetry monitoring. 5. Chronic atrial fibrillation, iatrogenic over anticoagulation: INR 4.5 at the time of admission. Warfarin has been on hold since December 26, 2017. INR this morning was 4.2. Continue holding warfarin and recheck INR in the morning. 6. Dysphagia: Followed by speech pathologist. She is on dysphagia diet with mechanical soft solid. 7. Disposition: Likely require correction facility placement at the time of discharge. Start PT OT evaluation and treatment.
[2017-12-27] MEDS: CEFTRIAXONE 1 GM/50 ML FROZ.PIGGY IV (19:05)
[2017-12-27 20:00] VITALS: BP 106/77; PULSE 96; RESP 18; TEMP 36.6; O2SAT 98
--- NOTE | 2017-12-27 21:18 | PC.NURSE ---
Candice shift note: Patient off the floor to CT scan with Lacho KRAMER, patient alert and in stable condition. Continues to arouse to voice, follows simple commands and can localize pain. Generalized weakness noted with L >R. Swallows thin liquids with good swallow coordination, no cough noted. Initiated IV Rocephin as ordered. Continue on Tele Afib CVR.
[2017-12-28] VITALS (7 sets, daily range): BP systolic 98–134; BP diastolic 60–93; PULSE 90–106; RESP 14–20; TEMP 36.3–36.6; O2SAT 92–95
[2017-12-28 05:37] LABS: INR 3.8 (0.9-1.3)
[2017-12-28 05:45] LABS: BUN Creatinine Ratio 23.3 (6-22); Blood Urea Nitrogen 14 mg/dL (7-17); Calcium 8.6 mg/dL (8.4-10.2); Carbon Dioxide 28 mmol/L (22-32); Chloride 102 mmol/L (98-107); Estimated Glomerular Filt Rate > 60.0 mL/min (>60); Glucose 95 mg/dL (80-110); HEMOLYSIS 22 (0-50); Potassium 4.4 mmol/L (3.4-5.1); Sodium 139 mmol/L (137-145)
[2017-12-28] MEDS: LEVOTHYROXINE 125 MCG TABLET PO (05:46)
[2017-12-28] MEDS: FUROSEMIDE 20 MG TABLET PO (09:20)
[2017-12-28] MEDS: SERTRALINE 25 MG TABLET 50 MG PO (09:20)
[2017-12-28] MEDS: SODIUM CHLORIDE 0.9% FLUSH 10 ML IV ×2 (09:21→21:12)
[2017-12-28] MEDS: SPIRONOLACTONE 25 MG TABLET 12.5 MG PO ×2 (09:21→21:11)
[2017-12-28] MEDS: BISOPROLOL 5 MG TABLET 10 MG PO ×2 (09:21→21:12)
--- NOTE | 2017-12-28 09:57 | OT.IP.TRT ---
Occupational Therapy Treatment Note M2 OT-IP Current Condition Start: 12/26/17 13:02 Freq: Status: Active Protocol: Document 12/26/17 13:03 [facility] (Rec: 12/26/17 13:25 [facility] [email or web address]) Occupational Therapy Current Condition Current Condition Evaluation Date 12/26/17 Treatment Diagnosis Weakness Diagnosis Onset Date 12/26/17 Weight Bearing Status Weight Bearing Status Weight Bear as Tolerated M3 OT- IP Subjective and Pain Start: 12/26/17 13:02 Freq: Status: Active Protocol: Document 12/28/17 09:35 [facility] (Rec: 12/28/17 09:56 [facility] [id number]) OT- Subjective Occupational Therapy Visit Type Type Treatment Note Visit Start Time 08:30 Visit Stop Time 09:00 Total Visit Minutes 30 Occupational Therapy Visit Comments Patient Comments Pt agreeable to self feed herself. OT Pain Assessment Pain When Pain Assessed At Rest Pain Present Pain Present Denied Pain M4 OT- IP ADL's Start: 12/26/17 13:02 Freq: Status: Active Protocol: Document 12/28/17 09:35 [facility] (Rec: 12/28/17 09:56 [facility] [id number]) OT [id number] General Evaluation Self-Feeding Ability Moderate Assistance Comments OT Self-Feeding Comments Pt able to do hand to mouth independently with fork to eat her eggs and needing to use both hands to eat her toast. Pt still has difficulty with the cup with right hand and needs support of left hand. Half-Way throught her meal , pt getting tired and needing assist to complete her meal. M6 OT- IP Functional Cognition Start: 12/26/17 13:02 Freq: Status: Active Protocol: Document 12/28/17 09:35 [facility] (Rec: 12/28/17 09:56 [facility] [id number]) Cognitive Factors Limiting Selfcare Function Cognitive Ability Level of Alertness Alert Patient Orientation Name Birthday Place Attention Span Ability Capable of Focused Attention Capable of Sustained Attention Unable to Sustain Attention Ability to Follow Commands Able to Follow One Step Commands Memory Description Short Term Impaired Care Home Impaired Safety Awareness Underestimates Need for Assistance Cognitive Comments Cognitive Assessment Comments Pt able to state her name, birthday, answer questions and partake in appropriate conversation today. M7 OT- IP Mobility and Balance Start: 12/26/17 13:02 Freq: Status: Active Protocol: Document 12/26/17 13:03 [facility] (Rec: 12/26/17 13:25 [facility] [email or web address]) OT- Bed Mobility Assessment Rolling Type of Rolling Roll to Left Level of Assistance Maximum Assistance 2 Person Assistance Supine to Sit Supine to Sit Assist Maximum Assistance 2 Person Assistance Scooting Scooting to Edge of Bed Maximum Assistance 2 Person Assistance OT-Transfer Assessment Sit to and From Stand Sit to and from Stand Maximum Assistance 2 Person Assistance Transfers Transfer Ability Maximum Assistance 2 Person Assistance Technique Transfer Destination Bed Chair Transfer Technique Stand Step Pivot Devices Transfer Assistive Devices Gait Belt Comments Mobility Comments Pt tends to lean back into posterior tilt , very fearful and scared. OT- Balance Assessment Sitting Balance and Reactions Static Sitting Balance Ability Fair Dynamic Sitting Balance Ability Poor Standing Balance and Reactions Static Standing Balance Ability Poor Dynamic Standing Balance Ability Poor M8 OT- IP Objective Assessments Start: 12/26/17 13:02 Freq: Status: Active Protocol: Document 12/26/17 13:03 [facility] (Rec: 12/26/17 13:25 [facility] [email or web address]) OT Strength Upper Extremity Strength Assessment Bilaterally Impaired Comments Strength Comments 3-/5 for BUE strength, only able to raise arms to 90 degrees, having difficulty to hold cup with right hand. M9 OT- IP Assessment and Plan Start: 12/26/17 13:02 Freq: Status: Active Protocol: Document 12/28/17 09:35 [facility] (Rec: 12/28/17 09:56 [facility] [id number]) OT Summary Assessment and Plan Potential Rehabilitation Potential Fair Summary OT Impairments Balance Coordination Functional Cognition Functional Mobility Self-Feeding Grooming Dressing Toileting Bathing Toilet Transfers Shower Transfers Progress Towards Goals Slow Progress due to Medical Issues Slow Progress due to Activity Tolerance Slow Progress due to Cognition Assessment Summary Pt improving with self feeding hand to mouth but still 1:1 to for for safety. Goals Self-Feeding Goal Minimal Assistance Grooming Goal Minimal Assistance Dressing Goal Moderate Assistance Toileting Goal Moderate Assistance Toilet Transfer Goal Moderate Assistance Shower Transfer Goal Moderate Assistance Days to Meet Goals 7 Frequency of Treatment Frequency Of Treatment Once a Day Treatment Plan OT Treatment Plan ADL Training Functional Cognition Training Functional Mobility Patient/Family Education Discharge Planning Discharge Recommendations OT Discharge Recommendations SNF Rehab
--- NOTE | 2017-12-28 10:00 | PC.NURSE ---
Pt alert to self only. On assessment pt doesn't make eye contact and appears to be staring off into the distance. Emotionally labile, easily tearful this morning for no obvious reason. Pt does acknowledge yes through yes/no questions that she doesn't like to be left alone. Pt is near nursing station, on frequent checks and door is open. She transferred to bedside chair with joyce and has worked with P.T and S.T this morning. Tolerating new IV ABX for UTI. Plan to check liver function tests and discuss SNF placement later today with son. Will continue to implement plan of care.
--- NOTE | 2017-12-28 10:01 | PT.IPTN ---
Physical Therapy Treatment Note M2 PT-IP Current Condition Start: 12/26/17 10:24 Freq: NEEDED Status: Active Protocol: Document 12/28/17 09:50 [facility] (Rec: 12/28/17 10:00 [facility] [email or web address]) Physical Therapy Current Condition Current Condition Evaluation Date 12/26/17 Treatment Diagnosis impaired mobility Onset Date couple days ago Weight Bearing Status Weight Bearing Status Weight Bear as Tolerated M3 PT-IP Subjective Start: 12/26/17 10:24 Freq: NEEDED Status: Active Protocol: Document 12/28/17 09:50 [facility] (Rec: 12/28/17 10:00 [facility] [email or web address]) Subjective Physical Therapy Visit Type Type Treatment Note Visit Start Time 09:25 Visit Stop Time 09:40 Total Visit Minutes 15 Number of ONLINE MARKETING DIRECTOR Visits 1 Physical Therapy Visit Comments Patient Comments Pt. sitting in chair, nursing used overhead lift to transfer her to chair. Therapy Pain Assessment Pain Present Pain Present Denied Pain M4 PT-IP Mobility and Gait Start: 12/26/17 10:24 Freq: NEEDED Status: Active Protocol: Document 12/28/17 09:50 [facility] (Rec: 12/28/17 10:00 [facility] [email or web address]) PT-Transfer Assessment Sit to and From Stand Sit to and from Stand Maximum Assistance 2 Person Assistance Use of Upper Extremities Equipment Transfer Assistive Device Gait Belt Front Wheeled Walker Orthotic/Prosthetic Devices or Brace: No Comments Mobility Comments Pt. sitting in chair, sit<> stand from chair with Max-A of 2, pt. unable to stand erect, knees flexed with posterior lean. Gait Assessment Comments Gait Comments Not able. M5 PT-IP Objective Assessments Start: 12/26/17 10:24 Freq: NEEDED Status: Active Protocol: Document 12/26/17 14:05 RS (Rec: 12/26/17 14:25 [facility] [id number]) Orientation Orientation/Cognition Level of Alertness Confusional State Orientation Name Birthday Place Comments difficult to assess full cognitive abilities Gross Range of Motion Upper Extremity ROM Assessment Bilaterally Impaired Impairments limited to 90deg elevation Lower Extremity ROM Assessment Within Functional Limits Strength Comments Strength Comments pt unable to follow cues for strength testing M6 PT-IP Treatment Start: 12/26/17 10:24 Freq: NEEDED Status: Active Protocol: Document 12/28/17 09:50 [facility] (Rec: 12/28/17 10:00 [facility] [email or web address]) Physical Therapy Treatment Exercises Exercises Ankle Pumps Seated Knee Flexion/Extension Elbow Flexion/Extension Other Treatments Other Treatment Performed AA bilateral elbow flexion/ext , punching, horizontal AB/AD. AA AP, TKE, marching, hip AB/ AD. M7 PT-IP Assessment and Plan Start: 12/26/17 10:24 Freq: NEEDED Status: Active Protocol: Document 12/28/17 09:50 [facility] (Rec: 12/28/17 10:00 [facility] [email or web address]) PT Summary Assessment and Plan Summary Assessment Summary Pt. not able to functionally stand, even with max-A of 2. Very rigid with ROM, no complaints of pain. Frequency of Treatment Frequency Of Treatment Once a Day Treatment Plan Physical Therapy Treatment Plan Bed Mobility Training Transfer Training Gait Training Therapeutic Exercise Recommendations To Nursing Amount of Assist Needed Mechanical Lift Discharge Recommendations PT Discharge Recommendations SNF Rehab
[2017-12-28 11:23] LABS: Alanine Aminotransferase 26 IU/L (9-52); Alkaline Phosphatase 155 U/L (38-126); Aspartate Aminotransferase 46 IU/L (14-36); Bilirubin Total 2.6 mg/dL (0.2-1.3)
--- NOTE | 2017-12-28 11:58 | ST.IPTN ---
MORTICIAN HELPER Treatment Note MORTICIAN HELPER Treatment Note Start: 12/28/17 10:17 Freq: Status: Active Protocol: Document 12/28/17 10:18 [facility]FF[facility] (Rec: 12/28/17 10:33 [facility] [id number]) Speech Pathology Treatment Note Session Time Visit Start Time 08:50 Visit Stop Time 09:10 Total Visit Minutes 20 Setting Treatment Setting Acute Care Visit Type Note Type Treatment Note Subjective Identification Type Name Identification Reconciled With Medical Record Observations/Patient Presentation Pt was awake and sitting in recliner calling Venus upon MORTICIAN HELPER's arrival. Nsg arrived immediately after MORTICIAN HELPER. The pt attempted to ask to go somewhere but was unable to complete her sentences with and without prompts. She was agreeable to this clinician spending time and working with her. Chief Complaint(s) Language Swallowing Cognitive Patient Knowledge/Awareness of MORTICIAN HELPER Role Fair in Treatment Objective Short Term Goals Pt will exhibit alertness levels adequate to participate in further cognitive assessment to guide POC. Mcc Goals Pt will demonstrate cognitive skills adequate to participate in medical decisions related to her care. Treatment Activities Pt was oriented to place ( [place], [place]), not oriented to time (day, time, year). Looking at the clock ( 10:00), she was unable to determine time, stating Ten til... and unable to complete the sentence. When given 2 options (10 til noon or 10:00) , the pt stated, I don't know and really don't care. Attempted to administer [facility] Mental Status (UMS) Examination. The pt was somnolent and the test was discontinued as the pt fell asleep. Will attempt again when pt is more awake. Following are the scores the pt acheived in the SLUMS tasks that were completed: Day of week (0/1), Year (0/1), State (1/1), Immediate recall of objects (2/5), Math additiona/subtraction (0/3), Categorical naming of animals (4 items = 0/3 score), Delayed recall of objects (2/5; recalled remaining 3 items with semantic cues), Placed X in triangle and identified largest of 3 objects (2/2). Tasks not completed: Clock drawing, reverse sequencing, and story recall. Assessment Rehab Potential Fair Impairments Identified Cognitive-Linguistic Skills Dementia Dysphagia Expressive Language Receptive Language Assessment of Improvement Pt exhibits mod-severe cognitive impairment secondary to complex medical status and history. Impairments identified in areas of attention, information processing, orientation, and reasoning skills. She requires significant assistance in expressing wants and needs and benefits from choices and yes /no vs open-ended questions. Plan Therapeutic Contents Client Education Cognitive-Linguistic Training Provided Patient/Caregiver Instruction Plan of Care Questions/Concerns Therapy Recommendations Continue with Current Program Visit Care Team Role Provider Type Celeste Wood DO Primary Care Provider Physician Address: [address] [place], [address] Joey Slade MD Other Providers Physician Address: [address] [place] [address], [id number] Alfonzo Falcon MD Family Provider Physician Address: [address] [place], [address] Caitlin Bonilla DO Emergency Provider Physician Address: [facility] [place] [address], [id number] Joselito Pedraza MD Admit Provider Physician Attending Provider Address: [address] [place] [address], [id number]
--- NOTE | 2017-12-28 12:27 | CM.DPC ---
Addendum entered by Lakisha Shaw LPN 12/29/17 12:45: Clarification of son's name: Freddie Pedersen/Shubham. His brother Daryl lives in [place]. Original Note: DCP: continued: Case received, EMR reviewed and met with pt and her son Pan re the d/c plan. (am familiar with both from the last admission here at which time pt did d/c to [facility].) Pan does want his mother to return to [facility] at d/c. She had just d/c'd from there to care of family and [facility] providers on 12/16. Confirmed with UR RN Michael that admission status is inpt/12/26. Called Barbara/Missy. She stated pt could readmit whenever stable for same. The family lives across the street from the facility and she notes they are very supportive. She can provide w/c van transport at d/c. PASRR: will again be needed. Will do prior to dc. P: [facility] when stable for same. No need for a 3 midnight inpt admission stay as pt is under the < 30 MC/SNF benefit. Will follow.
--- NOTE | 2017-12-28 15:34 | PM.PN.1 ---
Subjective Date Patient Seen: 12/28/17 Time Patient Seen: 15:15 Interval history: Patient is crying and saying that she misses her dog. Exam Vital Signs (past 8 hours): - 12/28/17 13:30 Temperature 97.3 F L Pulse Rate 97 H Respiratory Rate 14 Blood Pressure 125/75 H Pulse Oximetry 95 Oxygen Delivery Method Room Air Oxygen Flow Rate 0 Narrative Exam Narrative: General: Elderly woman was emotionally upset Lungs: Clear to auscultation bilaterally Heart: Regular rhythm, 2/6 systolic murmur best heard at the aortic area Abdomen: Soft, nontender,+ ascites Extremities: No pitting edema Objective Imaging CT scan - abdomen: Radiologist's impression: #1. Cirrhosis with moderate volume ascites. #2. No definite gallbladder mass seen on CT. Recommend contrast enhanced MRI of the gallbladder for further evaluation. #3. Small right pleural effusion with adjacent atelectasis. #4. Enlargement of the left and right atrium of the heart. #5. Diffuse bladder wall thickening, which can be seen with bladder outlet obstruction or chronic infection/inflammation. Labs Result Diagrams: 12/25/17 20:55 12/28/17 05:10 Labs: Laboratory Results - last 24 hr 12/28/17 12/28/17 12/28/17 05:10 05:10 05:10 PT 42.0 H D INR 3.8 H Sodium 139 Potassium 4.4 Chloride 102 Carbon Dioxide 28 BUN 14 Creatinine 0.60 Estimated GFR > 60.0 BUN/Creatinine Ratio 23.3 H Glucose 95 Calcium 8.6 Total Bilirubin 2.6 H AST 46 H ALT 26 Alkaline Phosphatase 155 H Assessment & Plan Plan: Assessment/Plan Narrative: 1. Acute weakness, confusion with possible encephalopathy: Possibly secondary to urinary tract infection. Head CT with findings of old left-sided strokes but also a questionable region in the right little which could represent subacute lacunar infarct versus artifact. Current neuro exam could represent old strokes verses findings of a more recent stroke. I am not certain where her baseline function is. I think she is pretty close to her baseline. 2. E coli urinary tract infection: She was initially treated with oral Macrobid. Antibiotics was changed to IV ceftriaxone on December 27, 2017. The E coli was in to her mediated to Macrobid and sensitive to ceftriaxone. Consider switching to oral Keflex at the time of discharge. 3. Elevated liver function tests: Looking back on her previous laboratory tests, her abnormal liver function tests are chronic, although her total bilirubin seems to be slightly higher than previous. The abnormal liver function test is likely secondary to cirrhosis. Abdominal ultrasound showed possible mass in the gallbladder. CT of abdomen did not reveal mass lesion in the gallbladder3. 4. Ischemic cardiomyopathy, chronic systolic heart failure, history of AICD pacemaker: She has chronic CHF pattern on x-ray but not in acute failure. There is question of chest pain complaint but troponin x2 negative. Continue telemetry monitoring. 5. Chronic atrial fibrillation, iatrogenic over anticoagulation: INR 4.5 at the time of admission. Warfarin has been on hold since December 26, 2017. INR this morning was 3.8. Continue holding warfarin and recheck INR in the morning. 6. Dysphagia: Followed by speech pathologist. She is on dysphagia diet with mechanical soft solid. 7. Disposition: Likely discharge to group home facility tomorrow. Continue Start PT/ OT evaluation and treatment.
[2017-12-28] MEDS: CEFTRIAXONE 1 GM/50 ML FROZ.PIGGY IV (18:32)
--- NOTE | 2017-12-28 18:52 | PC.NURSE ---
Candice shift note: Patient awake and alert, oriented to self. Follows simple commands and is able to respond to simple questions. Labile mood when awake for no apparent reason. Denies pain. Does not appear to be localizing pain, grimacing or discomfort. PO intake and appetite seem to improve this evening in comparison to yesterday. Continue with generalized weakness. Tolerating Dysphagia/mechanical soft diet. Continue on Afib with rate control. Needs occasional reassurance and emotional support. Updated her son Freddie regarding plan of care.
[2017-12-29 04:43] VITALS: BP 128/72; PULSE 97; RESP 18; TEMP 36.1
[2017-12-29 06:00] LABS: INR 3.1 (0.9-1.3); Prothrombin Time 34.6 SECONDS (10.1-12.7)
[2017-12-29] MEDS: LEVOTHYROXINE 125 MCG TABLET PO (06:00)
[2017-12-29 08:00] VITALS: BP 95/56; PULSE 96; RESP 14; TEMP 35.9; O2SAT 92
--- NOTE | 2017-12-29 09:11 | ST.IPTN ---
NURSING UNIT CLERK Dysphagia Treatment NURSING UNIT CLERK Dysphagia Treatment Start: 12/26/17 16:02 Freq: Status: Active Protocol: Document 12/27/17 10:58 [facility] (Rec: 12/27/17 11:08 [facility] [id number]) Dysphagia Treatment Session Time Visit Start Time 10:20 Visit Stop Time 10:35 Total Visit Minutes 15 Setting Assessment Location Acute Care Visit Type Note Type Treatment Note Next Note Type Next Note Type Treatment Note Patient Information Identification Type Name ID Card Subjective Observations Patient resting in chair, reclined, upon ST arrival. Nursing reported that patient did well with breakfast and taking her morning meds. No complaint of pain pre/post treatment. Patient was still confused, but more alert than yesterday. She heard someone in the hallway and stated, Oh that must be those sailors again. But when asked where she was, she did know she was in [facility]. Treatment Liquids Trialed Thin Solids Trialed Dysphagia Mechanical Administration Type Tea Spoon Straw Dependent Feeding Oral Strategies Upright at 90 degrees Controlled Bite/Sip Size Alternate Liquids/Solids Dementia Strategies Pharyngeal Strategies Sitting Upright (90 deg) Effortful Swallow Small Bites and Sips Alternate Liquids/Solids Additional Dysphagia Treatment Check for pocketing Strategies Treatment Activities Patient tolerated 3/4 of a cup of peaches and multiple sips of water from a straw. She was dependeng in all intake. Observed improved mastication time with reduced perseveration. Improved focus during intake as well. Able to indicate that she would like more to eat during treatment. No oral residue observed after multiple trials of soft fruit . Swallow response prompt with liquids and solids. No overt s/s of aspiration observed throughout the session. Assessment Patient Response to Treatment Excellent Rehab Potential Excellent Assessment of Improvement Patient is currently tolerating dysphagia mechanical textures with thin liquids without overt s/s of aspiration. She is improving in level of alertness, but she is still cognitively impaired and fatigues quickly. With cues, she is able to attend to mastication and swallowing in a timely manner, but without cues, she does still become lethargic and slow mastication . Swallow initiation is prompt and strong. At this time, she does not present with improved level of alertness for more solid textures and is tolerating dysphagia mechanical textures well. Continue curernt diet. Diet Recommendations Recommendations Continue Current Diet Liquids Order Thin Diet Order Dysphagia Mechanical Medication Recommendations Crushed in Carrier Additional Dietary Needs 1:1 Assistance Aspiration Precautions Recommended Precautions Upright at 90 Degrees Alternate Liquids/Solids Frequent Rest Periods Small Bites/Sips Effortful Swallow Check for Pocketing Treatment Plan Placement Recommendation after Discharge [facility] Appropriate for Continued Therapy Yes Therapy Recommendations Continue current diet of dysphagia mechanical textures and thin liquids. Crush medication in carrier. Continue 1:1 assistance with meals. Monitor patient for appropriateness for cognitive evaluation. Dysphagia Goals Patient will tolerate the safest, least restrictive diet without overt s/s of aspiration. Patient will masticate and clear PO without perseveration . Patient will implement lingual sweep and liquid wash to clear oral residue. Diet upgrade when appropriate Follow Up Plan Daily NURSING UNIT CLERK Treatment Note NURSING UNIT CLERK Treatment Note Start: 12/28/17 10:17 Freq: Status: Active Protocol: Document 12/29/17 08:56 [facility] (Rec: 12/29/17 09:11 [facility] [id number]) Speech Pathology Treatment Note Session Time Visit Start Time 08:00 Visit Stop Time 08:40 Total Visit Minutes 40 Setting Treatment Setting Acute Care Visit Type Note Type Treatment Note Subjective Identification Type Name Identification Reconciled With ID Bracelet Observations/Patient Presentation Patient was sleeping, but awoke easily to my voice and agreed to eat breakfast. She was alert and conversant and joked with me. Chief Complaint(s) Language Swallowing Cognitive Patient Knowledge/Awareness of NURSING UNIT CLERK Role Fair in Treatment Objective Short Term Goals Pt will exhibit alertness levels adequate to participate in further cognitive assessment to guide POC. - goal met Marine Steamfitter Goals Pt will demonstrate cognitive skills adequate to participate in medical decisions related to her care. Treatment Activities Observed patient with AM meal. She required set-up assistance, but was able to self-feed. She required cues to alternate liquids and solids, however, no significant pocketing was observed. Mastication was functional and no signs of pharyngeal dysphagia were present at bedside. SLUMs was readministered. She scored 8/30 indicating significant cognitive impairment. She was oriented to day of the week and state, but not to year. She was not able to perform mathematical equations in the form of a word problem. During divergent naming, she named 5 animals in 1 minute earning a score of 1/3. Short term recall of objects was significantly impaired (1/5 items). She scored 0/2 during backward digit span task and 0/4 for clock drawing. She was able to follow simple directions such as Place an X in the traingle and answer simple questions such as Which of the above figures is the largest which earned her 2/2 points. During recall of a story read aloud, she correctly answered 1/4 questions about details from the story. Assessment Rehab Potential Fair Impairments Identified Cognitive-Linguistic Skills Dementia Dysphagia Expressive Language Receptive Language Assessment of Improvement Patient's attention and alertness have improved since yesterday; however, she continues to exhibit mod- severe cognitive impairment secondary to complex medical status and history. Impairments identified in areas of short term recall, information processing, orientation, and reasoning skills. Per nursing, patient will likely d/c to [facility] today. She would benefit from ongoing speech therapy at this facility to target dysphagia management and cognitive training to improve orientation and memory for increased safety awareness. Plan Therapeutic Contents Client Education Cognitive-Linguistic Training Provided Patient/Caregiver Instruction Plan of Care Questions/Concerns Therapy Recommendations Continue with Current Program Comment Change assistance level from 1 :1 to distant supervision Visit Care Team Role Provider Type Celeste Wood DO Primary Care Provider Physician Address: [address] [place] [address], [address] Joey Slade MD Other Providers Physician Address: [address] [place] [address] Alfonzo Falcon MD Family Provider Physician Address: [facility] [place], [address] Caitlin Bonilla DO Emergency Provider Physician Address: [address] [place] [address] Joselito Pedraza MD Admit Provider Physician Attending Provider Address: [address] [place] [address]
--- NOTE | 2017-12-29 09:13 | ST.IPTN ---
PSYCHOLOGIST EDUCATIONAL Dysphagia Treatment PSYCHOLOGIST EDUCATIONAL Dysphagia Treatment Start: 12/26/17 16:02 Freq: Status: Active Protocol: Document 12/27/17 10:58 [facility] (Rec: 12/27/17 11:08 [facility] [id number]) Dysphagia Treatment Session Time Visit Start Time 10:20 Visit Stop Time 10:35 Total Visit Minutes 15 Setting Assessment Location Acute Care Visit Type Note Type Treatment Note Next Note Type Next Note Type Treatment Note Patient Information Identification Type Name ID Card Subjective Observations Patient resting in chair, reclined, upon ST arrival. Nursing reported that patient did well with breakfast and taking her morning meds. No complaint of pain pre/post treatment. Patient was still confused, but more alert than yesterday. She heard someone in the hallway and stated, Oh that must be those sailors again. But when asked where she was, she did know she was in [facility]. Treatment Liquids Trialed Thin Solids Trialed Dysphagia Mechanical Administration Type Tea Spoon Straw Dependent Feeding Oral Strategies Upright at 90 degrees Controlled Bite/Sip Size Alternate Liquids/Solids Dementia Strategies Pharyngeal Strategies Sitting Upright (90 deg) Effortful Swallow Small Bites and Sips Alternate Liquids/Solids Additional Dysphagia Treatment Check for pocketing Strategies Treatment Activities Patient tolerated 3/4 of a cup of peaches and multiple sips of water from a straw. She was dependeng in all intake. Observed improved mastication time with reduced perseveration. Improved focus during intake as well. Able to indicate that she would like more to eat during treatment. No oral residue observed after multiple trials of soft fruit . Swallow response prompt with liquids and solids. No overt s/s of aspiration observed throughout the session. Assessment Patient Response to Treatment Excellent Rehab Potential Excellent Assessment of Improvement Patient is currently tolerating dysphagia mechanical textures with thin liquids without overt s/s of aspiration. She is improving in level of alertness, but she is still cognitively impaired and fatigues quickly. With cues, she is able to attend to mastication and swallowing in a timely manner, but without cues, she does still become lethargic and slow mastication . Swallow initiation is prompt and strong. At this time, she does not present with improved level of alertness for more solid textures and is tolerating dysphagia mechanical textures well. Continue curernt diet. Diet Recommendations Recommendations Continue Current Diet Liquids Order Thin Diet Order Dysphagia Mechanical Medication Recommendations Crushed in Carrier Additional Dietary Needs 1:1 Assistance Aspiration Precautions Recommended Precautions Upright at 90 Degrees Alternate Liquids/Solids Frequent Rest Periods Small Bites/Sips Effortful Swallow Check for Pocketing Treatment Plan Placement Recommendation after Discharge Longterm Facility Appropriate for Continued Therapy Yes Therapy Recommendations Continue current diet of dysphagia mechanical textures and thin liquids. Crush medication in carrier. Continue 1:1 assistance with meals. Monitor patient for appropriateness for cognitive evaluation. Dysphagia Goals Patient will tolerate the safest, least restrictive diet without overt s/s of aspiration. Patient will masticate and clear PO without perseveration . Patient will implement lingual sweep and liquid wash to clear oral residue. Diet upgrade when appropriate Follow Up Plan Daily PSYCHOLOGIST EDUCATIONAL Treatment Note PSYCHOLOGIST EDUCATIONAL Treatment Note Start: 12/28/17 10:17 Freq: Status: Active Protocol: Document 12/29/17 08:56 [facility] (Rec: 12/29/17 09:11 [facility] [id number]) Speech Pathology Treatment Note Session Time Visit Start Time 08:00 Visit Stop Time 08:40 Total Visit Minutes 40 Setting Treatment Setting Acute Care Visit Type Note Type Treatment Note Subjective Identification Type Name Identification Reconciled With ID Bracelet Observations/Patient Presentation Patient was sleeping, but awoke easily to my voice and agreed to eat breakfast. She was alert and conversant and joked with me. Chief Complaint(s) Language Swallowing Cognitive Patient Knowledge/Awareness of PSYCHOLOGIST EDUCATIONAL Role Fair in Treatment Objective Short Term Goals Pt will exhibit alertness levels adequate to participate in further cognitive assessment to guide POC. - goal met Leather Roller Goals Pt will demonstrate cognitive skills adequate to participate in medical decisions related to her care. Treatment Activities Observed patient with AM meal. She required set-up assistance, but was able to self-feed. She required cues to alternate liquids and solids, however, no significant pocketing was observed. Mastication was functional and no signs of pharyngeal dysphagia were present at bedside. SLUMs was readministered. She scored 8/30 indicating significant cognitive impairment. She was oriented to day of the week and state, but not to year. She was not able to perform mathematical equations in the form of a word problem. During divergent naming, she named 5 animals in 1 minute earning a score of 1/3. Short term recall of objects was significantly impaired (1/5 items). She scored 0/2 during backward digit span task and 0/4 for clock drawing. She was able to follow simple directions such as Place an X in the traingle and answer simple questions such as Which of the above figures is the largest which earned her 2/2 points. During recall of a story read aloud, she correctly answered 1/4 questions about details from the story. Assessment Rehab Potential Fair Impairments Identified Cognitive-Linguistic Skills Dementia Dysphagia Expressive Language Receptive Language Assessment of Improvement Patient's attention and alertness have improved since yesterday; however, she continues to exhibit mod- severe cognitive impairment secondary to complex medical status and history. Impairments identified in areas of short term recall, information processing, orientation, and reasoning skills. Per nursing, patient will likely d/c to [facility] today. She would benefit from ongoing speech therapy at this facility to target dysphagia management and cognitive training to improve orientation and memory for increased safety awareness. Plan Therapeutic Contents Client Education Cognitive-Linguistic Training Provided Patient/Caregiver Instruction Plan of Care Questions/Concerns Therapy Recommendations Continue with Current Program Comment Change assistance level from 1 :1 to distant supervision Visit Care Team Role Provider Type Celeste Wood DO Primary Care Provider Physician Address: [address] [place] [address], [address] Joey Slade MD Other Providers Physician Address: [address] [place] [address] Alfonzo Falcon MD Family Provider Physician Address: [facility] [place], [address] Caitlin Bonilla DO Emergency Provider Physician Address: [address] [place] [address] Joselito Pedraza MD Admit Provider Physician Attending Provider Address: [address] [place] [address]
[2017-12-29] MEDS: BISOPROLOL 5 MG TABLET 10 MG PO (09:43)
[2017-12-29] MEDS: FUROSEMIDE 20 MG TABLET PO (09:44)
[2017-12-29] MEDS: SERTRALINE 25 MG TABLET 50 MG PO (09:44)
[2017-12-29] MEDS: SODIUM CHLORIDE 0.9% FLUSH 10 ML IV (09:45)
[2017-12-29] MEDS: ACETAMINOPHEN 325 MG TABLET 650 MG PO (09:45)
[2017-12-29] MEDS: SPIRONOLACTONE 25 MG TABLET 12.5 MG PO (09:54)
--- NOTE | 2017-12-29 10:15 | PT.IPTN ---
Current Diagnoses Weakness (12/26/17) Physical Therapy Treatment Note M2 PT-IP Current Condition Start: 12/26/17 10:24 Freq: NEEDED Status: Active Protocol: Document 12/29/17 10:15 [facility] (Rec: 12/29/17 11:47 [facility] [email or web address]) Physical Therapy Current Condition Current Condition Evaluation Date 12/26/17 Treatment Diagnosis impaired mobility Onset Date couple days ago Weight Bearing Status Weight Bearing Status Weight Bear as Tolerated M3 PT-IP Subjective Start: 12/26/17 10:24 Freq: NEEDED Status: Active Protocol: Document 12/29/17 10:15 [facility] (Rec: 12/29/17 11:47 [facility] [email or web address]) Subjective Physical Therapy Visit Type Type Treatment Note Visit Start Time 09:45 Visit Stop Time 10:15 Total Visit Minutes 30 Number of BAND STRAIGHTENER Visits 2 Physical Therapy Visit Comments Patient Comments Pt willing to get out of bed. Therapy Pain Assessment Pain Present Pain Present Denied Pain M4 PT-IP Mobility and Gait Start: 12/26/17 10:24 Freq: NEEDED Status: Active Protocol: Document 12/29/17 10:15 [facility] (Rec: 12/29/17 11:47 [facility] [email or web address]) PT-Bed Mobility Assessment Rolling Level of Assist Maximal Assistance Supine to Sit Supine to Sit Maximum Assistance 2 Person Assistance Head of Bed Elevated Scooting Scooting to Edge of Bed Moderate Assistance PT-Transfer Assessment Sit to and From Stand Sit to and from Stand Moderate Assistance 2 Person Assistance Use of Upper Extremities Equipment Transfer Assistive Device Gait Belt Front Wheeled Walker Orthotic/Prosthetic Devices or Brace: No Transfers Transfer Destination Chair Transfer Ability Level of Assist Moderate Assistance 2 Person Assistance Use of Upper Extremities M5 PT-IP Objective Assessments Start: 12/26/17 10:24 Freq: NEEDED Status: Active Protocol: Document 12/26/17 14:05 [facility] (Rec: 12/26/17 14:25 [facility] [id number]) Orientation Orientation/Cognition Level of Alertness Confusional State Orientation Name Birthday Place Comments difficult to assess full cognitive abilities Gross Range of Motion Upper Extremity ROM Assessment Bilaterally Impaired Impairments limited to 90deg elevation Lower Extremity ROM Assessment Within Functional Limits Strength Comments Strength Comments pt unable to follow cues for strength testing M6 PT-IP Treatment Start: 12/26/17 10:24 Freq: NEEDED Status: Active Protocol: Document 12/29/17 10:15 [facility] (Rec: 12/29/17 11:47 [facility] [email or web address]) Physical Therapy Treatment Exercises Exercises Ankle Pumps Quad Sets Heel Slides Seated Knee Flexion/Extension M7 PT-IP Assessment and Plan Start: 12/26/17 10:24 Freq: NEEDED Status: Active Protocol: Document 12/29/17 10:15 [facility] (Rec: 12/29/17 11:47 [facility] [email or web address]) PT Summary Assessment and Plan Summary Assessment Summary Pt need mod to max a of two with all mobility. She did have improved standing posture , but poor balance. She had difficultly with taking steps for transfer and following cues. Frequency of Treatment Frequency Of Treatment Once a Day Treatment Plan Physical Therapy Treatment Plan Bed Mobility Training Transfer Training Gait Training Therapeutic Exercise Recommendations To Nursing Amount of Assist Needed Mechanical Lift Discharge Recommendations PT Discharge Recommendations SNF Rehab
--- NOTE | 2017-12-29 11:23 | PM.DS.1 ---
History of Present Illness Date Patient Seen: 12/29/17 Time Patient Seen: 11:24 Chief complaint: Weakness Narrative: Patient is an 82-year-old female brought to emergency department due to weakness. She is unable to provide history herself. Per ER documentation, family noted that she was walking around with a walker but over the past week she has become non ambulatory and more confused. Son also thought she has been slurring her words. She was released from this hospital on November 09 after left hip fracture repair. She was sent to rehab and released from there on December 16. Discharge Providers Date of admission: 12/26/17 01:15 Primary care physician: Celeste Wood DO Consults: 12/26/17 01:46 Consult to Physician Routine Comment: Consulting Provider: Joey Slade Reason for consultation: admission Has provider been notified: Yes 12/26/17 02:14 Consult to Dietitian, Adult Routine Comment: Reason For Exam: Poor appetite, Dementia 12/26/17 10:08 Consult to Occupational Therapy Evaluate & Treat Comment: Physician Instructions: Evaluate and treat Consult to Physical Therapy Evaluate & Treat Comment: Physician Instructions: Evaluate and Treat 12/26/17 11:17 Consult to Speech Therapy Evaluate & Treat Comment: speech and swallow eval Physician Instructions: Evaluate and treat Discharge provider: NINA Urbina Summary Discharge Diagnosis: 1. Acute weakness, confusion with possible encephalopathy 2. E coli urinary tract infection. 3. Elevated liver function test 4. Ischemic cardiomyopathy, chronic systolic heart failure, history of AICD pacemaker 5. Chronic atrial fibrillation 6. Dysphagia 7. Moderate protein calorie malnutrition, 24 lb weight loss last 5 months. Hospital Course: This is a summary of a 3 day hospitalization for this 82-year-old patient who presented to the emergency room with weakness. Head CT with findings of old left-sided strokes but also questionable region in the right little which could represent subacute lacunar infarct versus artifact. Current no overt neuro exam could represent old strokes versus findings of a more recent stroke. I think she is pretty close to her baseline. She had abnormal urinalysis with greater than 100 WBCs but only few bacteria and is inconsistent so unclear whether she has a true UTI or not she was started on p.o. Macrobid. Urine culture did grow E coli sensitive to cephalosporin so she was changed to IV ceftriaxone. Also her WBC and procalcitonin were normal. Blood cultures x2 were negative after 72 hr. Looking back at her previous laboratory tests, her abnormal liver function test are chronic. The abnormal liver function test is most likely secondary to cirrhosis. Abdominal ultrasound and CT showed approximately 3 cm stone in her gallbladder. He has had a chronic CHF pattern on x-ray but is not in acute failure during this hospitalization. There was a question of whether not she had chest pain 1 day and her troponins were negative x2. Cardiac telemetry reveals atrial fibrillation with controlled ventricular response of about 80-100. Her INR was 4.5 at the time of admission her warfarin has been on hold since December 26. Recommend holding her Coumadin until her INR is under 3. She will need a repeat INR on TuesdayDecember 31. She does not show any signs of renal failure and would encourage a high-protein caloric intake for her as she has had it 13% decrease in her weight past 5 months which may have also led to her weakness. She also be discharge on p.o. Keflex for her UTI. Hold Coumadin until INR is under 3. Exam Vital Signs (past 8 hours): - 12/29/17 04:43 12/29/17 08:00 Temperature 97.0 F L 96.7 F L Pulse Rate 97 H 96 H Respiratory Rate 18 14 Blood Pressure 128/72 H 95/56 L Pulse Oximetry 92 Oxygen Delivery Method Room Air Oxygen Flow Rate 0 PROCEDURE: CT HEAD/BRAIN WO CON INDICATIONS: weakness confusion TECHNIQUE: Noncontrast 4.5 mm thick angled axial sections acquired from the foramen magnum to the vertex, with coronal and sagittal reformats. For radiation dose reduction, the following was used: automated exposure control, adjustment of mA and/or kV according to patient size. COMPARISON: [facility], CT, STROKE HEAD AND NECK ANGIO, 06/17/2012, 14:35. [facility], CT, HEAD WITHOUT CONTRAST, 06/16/2012, 15:50. FINDINGS: Image quality: Excellent. CSF spaces: Basal cisterns are patent. No extra-axial fluid collections. The ventricles are symmetric in size and shape. Brain: No intracranial bleeds or masses. There is cerebral volume loss for age, with resultant ventricular and sulcal prominence. There are periventricular and deep white matter chronic small vessel ischemic changes. Small, oval shaped hypoattenuating focus noted in the right aspect of the little which could represent a subacute lacunar infarct versus artifact. Old, small, lacunar infarcts noted in the left cerebellar hemisphere in the left thalamus. Old small left occipital lobe infarct is noted. There is intracranial internal carotid artery atherosclerosis. Skull and face: Calvarium and visualized facial bones appear intact, without suspicious lesions. Sinuses: Visualized sinuses and mastoids are clear. IMPRESSION: 1. Oval hypoechoic attenuating focus in the right aspect of the little which could represent subacute lacunar infarct versus artifact. Recommend MRI of the brain for further evaluation when clinically feasible. 2. Old left occipital lobe infarct, old left cerebral hemisphere lacunar infarct and old left thalamic lacunar infarct. 3. No intracranial hemorrhage. Dictated by: Karuna Robison MD, PhD on 12/26/2017 at 8:00 Approved by: Karuna Robison MD, PhD on 12/26/2017 at 8:05 PROCEDURE: XR PELVIS 1-2V INDICATIONS: recent left fx TECHNIQUE: One view(s) of the pelvis acquired. COMPARISON: [facility], , XR HIP W PEL IF DONE LT 2V, 11/04/2017, 16:17. [facility], CR, XR HIP W PEL IF DONE LT 2V, 11/03/2017, 3:25. FINDINGS: Bones: Left femoral pinning is present. Hardware is intact. Minimal appearance of fracture lucency persists. Significant degenerative changes are present within the right hip. Degenerative changes are also present within the lower lumbar spine. Soft tissues: Visualized bowel gas pattern is normal. No suspicious soft tissue calcifications. IMPRESSION: No visualized acute fracture or dislocation. However, if clinical concern and/or pain persist, short interval imaging followup in 7-10 days is recommended, as occult injury cannot be definitively excluded. Dictated by: Radha Ramos M.D. on 12/25/2017 at 21:03 Approved by: Radha Ramos M.D. on 12/25/2017 at 21:04 PROCEDURE: XR PELVIS 1-2V INDICATIONS: recent left fx TECHNIQUE: One view(s) of the pelvis acquired. COMPARISON: [facility], , XR HIP W PEL IF DONE LT 2V, 11/04/2017, 16:17. [facility], , XR HIP W PEL IF DONE LT 2V, 11/03/2017, 3:25. FINDINGS: Bones: Left femoral pinning is present. Hardware is intact. Minimal appearance of fracture lucency persists. Significant degenerative changes are present within the right hip. Degenerative changes are also present within the lower lumbar spine. Soft tissues: Visualized bowel gas pattern is normal. No suspicious soft tissue calcifications. IMPRESSION: No visualized acute fracture or dislocation. However, if clinical concern and/or pain persist, short interval imaging followup in 7-10 days is recommended, as occult injury cannot be definitively excluded. Dictated by: Radha Ramos M.D. on 12/25/2017 at 21:03 Approved by: Radha Ramos M.D. on 12/25/2017 at 21:04 PROCEDURE: US ABDOMEN COMPLETE INDICATIONS: ELEVATED BILIRUBIN TECHNIQUE: Real-time scanning was performed of the abdominal and retroperitoneal organs, with image documentation. COMPARISON: [facility], US, ABDOMEN COMPLETE, 02/20/2017, 12:53. [facility], CT, ABDOMEN/PELVIS WITHOUT CONTRAS, 03/05/2017, 15:48. FINDINGS: Study limited by body habitus and dementia Liver: Liver is normal in size and homogeneous in echotexture. Gallbladder: Gallbladder shows no calcified stones. Wall thickness is normal. There is a 1.7 cm soft tissue mass in the posterior wall showing no internal blood flow and no mobility. Differential includes large polyp, sludge ball and tumor. Biliary ducts: Intrahepatic bile ducts are non-dilated. Extrahepatic bile duct caliber measures 4.5 mm. Normal is 6-7 mm or less in diameter, or 10 mm or less post-cholecystectomy. Pancreas: Visualized portions of the pancreas are sonographically normal. Spleen: Spleen is normal in size and homogeneous in echotexture. Kidneys: Kidneys are normal in size and echotexture. Right kidney measures 11.9 cm long; left kidney measures 10.5 cm long. No hydronephrosis or nephrolithiasis. No solid masses. Aorta: Visualized aorta is normal in caliber at less than 3 cm. proximal segment measures 1.7 cm. The mid and distal segments are obscured. Iliacs: Iliac vessels are obscured by bowel gas. IVC: Intrahepatic inferior vena cava is patent. Miscellaneous: There is free fluid in the lower abdomen bilaterally. There is also a right pleural effusion. IMPRESSION: Study is limited by amount of bowel gas and body habitus. Patient not able to fully cooperate. 1. Gallbladder contains a low density mass. CT abdomen with liver protocol is suggested to determine level of enhancement as gallbladder carcinoma cannot be excluded. 2. Small amount of ascites. Right pleural effusion. 3. Abdominal aortic aneurysm cannot be excluded by this exam. Iliac vessels are also obscured. Dictated by: Sage Ocampo M.D. on 12/26/2017 at 14:11 Approved by: Sage Ocampo M.D. on 12/26/2017 at 14:20 PROCEDURE: CT ABDOMEN PELVIS W CON INDICATIONS: Possible gallbladder mass. TECHNIQUE: After the administration of intravenous contrast, 5 mm thick sections acquired from the diaphragm to the symphysis. 5 mm coronal and sagittal reformats were acquired. For radiation dose reduction, the following was used: automated exposure control, adjustment of mA and/or kV according to patient size. COMPARISON: [facility], CT, CT HEAD/BRAIN WO CON, 12/25/2017, 22:49. [facility], CT, ABDOMEN/PELVIS WITHOUT CONTRAS, 03/05/2017, 15:48. [facility], CT, THORAX WITHOUT CONTRAST, 02/28/2015, 13:43. [facility], CT, THORAX WITHOUT CONTRAST, 07/29/2014, 13:18. FINDINGS: Image quality is excellent. Partially imaged cardiac pacer wires noted. There is dilatation of the right and left atrium. There is calcified and noncalcified plaque of the abdominal aorta and branch vessels. There is a small right pleural effusion with adjacent atelectasis. Cirrhotic liver morphology with small volume perihepatic ascites noted. No convincing evidence of a gallbladder mass is identified. There is vicarious excretion of contrast into the gallbladder creating a fluid fluid level. There is diffuse fatty atrophy of the pancreas there is a subcentimeter calcified splenic artery aneurysm. Spleen is unremarkable. Perisplenic ascites noted. The bilateral adrenal glands and bilateral kidneys are unremarkable. No hydronephrosis. Additional ascites within the left paracolic bladder. No small bowel obstruction. Bladder demonstrates diffuse bladder wall thickening. There are moderate degenerative changes of the right hip joint. Partially imaged left intertrochanteric screws noted. There is a superior endplates Schmorl's node at the T12 level. IMPRESSION: #1. Cirrhosis with moderate volume ascites. #2. No definite gallbladder mass seen on CT. Recommend contrast enhanced MRI of the gallbladder for further evaluation. #3. Small right pleural effusion with adjacent atelectasis. #4. Enlargement of the left and right atrium of the heart. #5. Diffuse bladder wall thickening, which can be seen with bladder outlet obstruction or chronic infection/inflammation. Dictated by: Layton Temple M.D. on 12/27/2017 at 23:26 Approved by: Layton Temple M.D. on 12/27/2017 at 23:37 Objective Labs Result Diagrams: 12/25/17 20:55 12/28/17 05:10 Labs: Laboratory Results - last 24 hr 12/28/17 12/29/17 05:10 05:35 PT 34.6 H D INR 3.1 H Total Bilirubin 2.6 H AST 46 H ALT 26 Alkaline Phosphatase 155 H Discharge Plan Discharge Plan Patient Disposition: SNF Transfer to: [facility] Transportation: Facility vehicle Labs: She will need repeat INR on TuesdayDecember 31 Discharge comment: Patient will need continued physical therapy, speech and occupational therapy. I certify the postop hospital chcf care is medically necessary on a continuing basis for any conditions for which he/ she received care during this hospitalization.: Yes The receiving facility has agreed to accept transfer and provide medical treatment.: Yes Discharge Health Status Multidrug resistant organism: No MDRO Precautions: [place] Provider Discharge Instructions Diet comment: Dysphagia diet/heart healthy/cardiac. Increased protein Activity: As tolerated Oxygen: Room air [facility] Reason for rehabilitation: Recovery r/t decondition Rehab type: Physical therapy, Occupational therapy and Speech therapy Discharge Data Primary Care Provider: Celeste Wood Attending Provider: Joselito Pedraza Admit Date/Time: 12/26/17 01:15
[2017-12-29 12:00] VITALS: BP 117/54; PULSE 100; RESP 18; TEMP 36.1; O2SAT 97
--- NOTE | 2017-12-29 12:28 | OT.IP.TRT ---
Current Diagnoses Weakness (12/26/17) Occupational Therapy Treatment Note M2 OT-IP Current Condition Start: 12/26/17 13:02 Freq: Status: Active Protocol: Document 12/26/17 13:03 CCC (Rec: 12/26/17 13:25 CCC [email or web address]) Occupational Therapy Current Condition Current Condition Evaluation Date 12/26/17 Treatment Diagnosis Weakness Diagnosis Onset Date 12/26/17 Weight Bearing Status Weight Bearing Status Weight Bear as Tolerated M3 OT- IP Subjective and Pain Start: 12/26/17 13:02 Freq: Status: Active Protocol: Document 12/29/17 12:28 PJM (Rec: 12/29/17 13:24 PJM [email or web address]) OT- Subjective Occupational Therapy Visit Type Type Treatment Note Visit Start Time 12:15 Visit Stop Time 12:28 Total Visit Minutes 13 Notes Pt tearful at start of session and unable to state what is bothering her. She denies pain. OT Pain Assessment Pain When Pain Assessed After Treatment Pain Present Pain Present Denied Pain M4 OT- IP ADL's Start: 12/26/17 13:02 Freq: Status: Active Protocol: Document 12/29/17 13:24 PJM (Rec: 12/29/17 13:25 PJM [email or web address]) OT [id number] General Evaluation Self-Feeding Ability Standby Assistance Comments OT Self-Feeding Comments Pt needs meal tray set up. Pt does better with finger foods than with utensil, but much improved since initial evaluation. Pt now needs intermittent stand by assist only. M6 OT- IP Functional Cognition Start: 12/26/17 13:02 Freq: Status: Active Protocol: Document 12/29/17 12:28 PJM (Rec: 12/29/17 13:24 PJM [email or web address]) Cognitive Factors Limiting Selfcare Function Cognitive Ability Level of Alertness Alert Patient Orientation Name Place Attention Span Ability Capable of Focused Attention Ability to Follow Commands Able to Follow One Step Commands Memory Description Short Term Impaired Problem Solving Ability Needs Assist to Identify Solutions Executive Function Ability Unable to Filter Distractions Cognitive Comments Cognitive Assessment Comments Pt more alert today with better attention to self feeding task. M9 OT- IP Assessment and Plan Freq: Status: Active Protocol: Document 12/29/17 12:28 PJM (Rec: 12/29/17 13:24 PJM [email or web address]) OT Summary Assessment and Plan Summary OT Impairments Functional Cognition Functional Mobility Self-Feeding Grooming Dressing Toileting Bathing Toilet Transfers Shower Transfers Progress Towards Goals Slow Progress due to Cognition Assessment Summary Pt making good progress with feeding self and now requires intermittent supervision only after initial meal tray set up . Pt independent feeding self finger foods and able to use utensil to eat soup with much improved R hand dexterity and praxis compared to initial evaluation. Pt asking appropriate questions about meal tray set up and asking for appropriate items like more seasoning and larger spoon for soup. Pt more alert and with better upright posture today. Pt tearful at start of session, but unable to verbalize why and responds to distraction. Recommend SNF at d/c fo further subacute rehab services. Treatment Plan OT Treatment Plan ADL Training Functional Cognition Training Patient/Family Education Discharge Planning Discharge Recommendations OT Discharge Recommendations SNF Rehab
--- NOTE | 2017-12-29 12:34 | CM.DPC ---
DCP: continued: Hospitalist NINA Gonzales has ok'd pt for d/c today. Barbara/Brayden is faxed orders and completed PASRR. Van will transport: 1500 Confirmed with Barbara that POA has been given to pt's son Freddie Pedersen/Shubham. [phone] Called him with update and he will see his mother at the snf when she arrives.
--- NOTE | 2017-12-29 14:38 | PC.NURSE ---
Pending transfer: Pt feels ready for d/c. Son called this am and given update. Did not have a time when he called. SS called son to update him on d/c after she was seen by md. Aburto called at [facility] and given report. They have had patient before after a hip fx and know her. Reviewed hospital course and labs, she will need a follow up INR at facility. Reviewed activity level and ability and diet changes, crush meds and use a carrier. She will be followed by PT/ST at facility. Questions answered. Awaiting facility van to come and get her.
== END 2017-12-29 15:37 | DRG 71 ==
LOC: ED 20:32 → AC 12-26 01:19
PROVIDERS: Internal Medicine; Admitting Provider Internal Medicine; Emergency Provider Emergency Medicine; Family Provider Family Medicine; PCP Family Medicine; Visit Provider Internal Medicine
DX: G93.40 Encephalopathy, unspecified (principal); E44.0 Moderate protein-calorie malnutrition; N39.0 Urinary tract infection, site not specified; I50.22 Chronic systolic (congestive) heart failure; R53.1 Weakness; B96.20 Unspecified Escherichia coli [E. coli] as the cause of diseases classified elsewhere; I25.5 Ischemic cardiomyopathy; Z95.810 Presence of automatic (implantable) cardiac defibrillator; Z86.73 Personal history of transient ischemic attack (TIA), and cerebral infarction without residual deficits; I48.2 Chronic atrial fibrillation; Z79.01 Long term (current) use of anticoagulants; F03.90 Unspecified dementia, unspecified severity, without behavioral disturbance, psychotic disturbance, mood disturbance, and anxiety; E03.9 Hypothyroidism, unspecified; K74.5 Biliary cirrhosis, unspecified; Z68.27 Body mass index [BMI] 27.0-27.9, adult; R13.10 Dysphagia, unspecified; R94.02 Abnormal brain scan
CPT/HCPCS: 36415; 36591; 70450; 71045; 72170; 74177; 76700; 80048; 80053; 81001; 82140; 82247; 82248; 82550; 82553; 83605; 84075; 84145; 84450; 84460; 84484; 85025; 85610; 85730; 87040; 87077; 87086; 87186; 92507; 92526; 92610; 93005; 96365; 97163; 97166; 97530; 97535; 99284; 99285; Q9967

== ENCOUNTER → 2018-04-26 11:39 | Outpatient (CLI) | payer MEDICARE, SELFPAY ==
[2017-12-26 01:56] VITALS: BMI 27.7
[2018-04-26 15:10] LABS: Add Manual Diff / Slide Review NO; Eosinophils Percent Auto 4.2 % (2-4); Hematocrit 52.2 % (36-46); Hemoglobin 16.7 g/dL (12.0-16.0); Lymphocytes Percent Auto 31.7 % (25-40); Mean Corpuscular Hemoglobin 31.3 PG (26-34); Mean Corpuscular Volume 97.8 fL (80-100); Monocytes Percent Auto 11.1 % (3-14); Neutrophils Absolute Auto 4200 /uL (3000-5900); Platelet Count 222 X10^3/uL (150-400); Red Blood Cell Count 5.33 X10^6/uL (4.0-5.2); Red Cell Distribution Width 15.8 % (11.6-14.8); White Blood Cell Count 8.1 X10^3/uL (4.5-11.0)
[2018-04-26 15:16] LABS: Alanine Aminotransferase 27 IU/L (9-52); Albumin 4.6 g/dL (3.5-5.0); Albumin Globulin Ratio 1.1 (1.0-2.8); Alkaline Phosphatase 131 U/L (38-126); Aspartate Aminotransferase 40 IU/L (14-36); BUN Creatinine Ratio 25.7 (6-22); Bilirubin Total 1.3 mg/dL (0.2-1.3); Blood Urea Nitrogen 18 mg/dL (7-17); Calcium 9.7 mg/dL (8.4-10.2); Carbon Dioxide 30 mmol/L (22-32); Chloride 99 mmol/L (98-107); Cholesterol 177 mg/dL (140-199); Estimated Glomerular Filt Rate > 60.0 mL/min (>60); Globulin 4.2 g/dL (1.7-4.1); Glucose 69 mg/dL (80-110); HDL Cholesterol 42 mg/dL (40-60); HEMOLYSIS < 15 (0-50); LDL Cholesterol Calculated 106 mg/dL (<100); Potassium 4.1 mmol/L (3.4-5.1); Sodium 146 mmol/L (137-145); Total Protein 8.8 g/dL (6.3-8.2); Triglycerides 143 mg/dL (35-150)
[2018-04-26 15:31] LABS: Free T3, Triiodothyronine Free 2.77 pg/mL (2.77-5.27); Free T4, Direct Thyroxine 1.04 ng/dL (0.78-2.19)
== END ==
PROVIDERS: Family Provider Family Medicine; PCP Family Medicine; Visit Provider Family Medicine
DX: E03.9 Hypothyroidism, unspecified (principal); I10 Essential (primary) hypertension; I48.91 Unspecified atrial fibrillation; Z51.81 Encounter for therapeutic drug level monitoring; Z86.73 Personal history of transient ischemic attack (TIA), and cerebral infarction without residual deficits
CPT/HCPCS: 80053; 80061; 84439; 84443; 84481; 85025

== ENCOUNTER → 2018-06-26 13:51 | Outpatient (CLI) | payer MEDICARE, MEDICAID, SELFPAY ==
[2017-12-26 01:56] VITALS: BMI 27.7
== END ==
PROVIDERS: Family Provider Family Medicine; PCP Family Medicine; Visit Provider Family Medicine
DX: R30.0 Dysuria (principal)
CPT/HCPCS: 87077; 87086; 87186

== ENCOUNTER 2018-08-25 13:37 | Emergency (ER) | payer MEDICARE, MEDICAID, SELFPAY ==
[2017-12-26 01:56] VITALS: BMI 27.7
[2018-08-25 13:46] VITALS: PULSE 103; RESP 19; TEMP 36.7; O2SAT 100
== END 2018-08-25 15:55 | disposition left against medical advice (07) ==
PROVIDERS: Emergency Provider Emergency Medicine; Family Provider Family Medicine; PCP Family Medicine
DX: R42 Dizziness and giddiness (principal)
CPT/HCPCS: 99282

== ENCOUNTER → 2018-09-28 15:47 | Outpatient (CLI) | payer MEDICARE, MEDICAID, SELFPAY ==
[2018-09-28 09:22] VITALS: BMI 27.7
[2018-09-28 16:17] LABS: RBC Urine None Seen (0-5/HPF)
[2018-09-28 16:32] LABS: Appearance Urine UA CLEAR; Bilirubin Urine UA NEGATIVE (NEGATIVE); Color Urine UA YELLOW; Glucose Urine UA NEGATIVE (Negative); Ketones Urine UA TRACE (NEGATIVE); Leukocyte Esterase Urine UA 2+ (NEGATIVE); Nitrite Urine UA POSITIVE (Negative); Occult Blood Urine UA TRACE-LYSED (Negative); Protein Urine UA TRACE (Negative); Specific Gravity Urine UA 1.025 (1.000-1.035); Urobilinogen Urine UA 0.2 E.U./dL (0.2)
[2018-09-28 16:53] LABS: Bacteria Urine Moderate (10-30); Hyaline Casts Urine 1-5/LPF; Squamous Epithelial Cell Urine 0-1 /HPF (0-5/HPF); WBC Urine 10-30/HPF (0-5/HPF)
[2018-09-28 16:54] LABS: Culture Indicated Urine Specimen Cultured
== END ==
PROVIDERS: Family Provider Nurse Practitioner Family; PCP Family Medicine; Visit Provider Family Medicine
DX: R35.0 Frequency of micturition (principal)
CPT/HCPCS: 81001; 87077; 87086; 87186

== ENCOUNTER → 2018-10-09 12:30 | Outpatient (CLI) | payer MEDICARE, MEDICAID, SELFPAY ==
[2018-09-28 09:22] VITALS: BMI 27.7
[2018-10-09 14:25] LABS: Add Manual Diff / Slide Review NO; Basophils Absolute Auto 0 /uL (0-100); Basophils Percent Auto 0.3 % (0-2); Eosinophils Absolute Auto 200 /uL (0-450); Hematocrit 52.9 % (36-46); Hemoglobin 16.9 g/dL (12.0-16.0); Lymphocytes Absolute Auto 3700 /uL (1100-4500); Lymphocytes Percent Auto 38.8 % (25-40); Mean Corpuscular Hemoglobin 32.1 PG (26-34); Mean Corpuscular Volume 100.4 fL (80-100); Monocytes Absolute Auto 1400 /uL (0-900); Monocytes Percent Auto 14.4 % (3-14); Neutrophils Absolute Auto 4200 /uL (1500-7000); Neutrophils Percent Auto 44.5 % (50-75); Platelet Count 225 X10^3/uL (150-400); Red Blood Cell Count 5.27 X10^6/uL (4.0-5.2); Red Cell Distribution Width 14.3 % (11.6-14.8); White Blood Cell Count 9.5 X10^3/uL (4.5-11.0)
[2018-10-09 14:43] LABS: Free T3, Triiodothyronine Free 9.47 pg/mL (2.77-5.27); Free T4, Direct Thyroxine 1.06 ng/dL (0.78-2.19)
[2018-10-09 14:50] LABS: Alanine Aminotransferase 56 IU/L (9-52); Albumin 4.5 g/dL (3.5-5.0); Albumin Globulin Ratio 1.2 (1.0-2.8); Alkaline Phosphatase 134 U/L (38-126); Aspartate Aminotransferase 61 IU/L (14-36); BUN Creatinine Ratio 25.6 (6-22); Bilirubin Total 0.8 mg/dL (0.2-1.3); Blood Urea Nitrogen 23 mg/dL (7-17); Calcium 9.8 mg/dL (8.4-10.2); Carbon Dioxide 30 mmol/L (22-32); Chloride 99 mmol/L (98-107); Estimated Glomerular Filt Rate 59.7 mL/min (>60); Globulin 3.7 g/dL (1.7-4.1); Glucose 90 mg/dL (80-110); HEMOLYSIS 17 (0-50); Potassium 4.6 mmol/L (3.4-5.1); Sodium 141 mmol/L (137-145); Total Protein 8.2 g/dL (6.3-8.2)
[2018-10-09 14:56] LABS: Thyroid Stimulating Hormone 0.16 uIU/mL (0.47-4.68)
== END ==
PROVIDERS: Family Provider Nurse Practitioner Family; PCP Family Medicine; Visit Provider Family Medicine
DX: E03.9 Hypothyroidism, unspecified (principal); E87.5 Hyperkalemia; F03.90 Unspecified dementia, unspecified severity, without behavioral disturbance, psychotic disturbance, mood disturbance, and anxiety; I48.91 Unspecified atrial fibrillation; I50.9 Heart failure, unspecified
CPT/HCPCS: 36415; 80053; 84439; 84443; 84481; 85025

== ENCOUNTER → 2018-11-24 15:33 | Outpatient (CLI) | payer MEDICARE, MEDICAID, SELFPAY ==
[2018-09-28 09:22] VITALS: BMI 27.7
== END ==
PROVIDERS: Family Provider Nurse Practitioner Family; PCP Family Medicine; Visit Provider Hospitalist
DX: N39.0 Urinary tract infection, site not specified (principal)
CPT/HCPCS: 87077; 87086; 87186

== ENCOUNTER → 2019-02-06 15:23 | Outpatient (CLI) | payer MEDICARE, MEDICAID, SELFPAY ==
[2018-09-28 09:22] VITALS: BMI 27.7
[2019-02-06 16:03] LABS: Bacteria Urine None Seen
[2019-02-06 17:19] LABS: Appearance Urine UA CLEAR; Bilirubin Urine UA NEGATIVE (NEGATIVE); Color Urine UA YELLOW; Glucose Urine UA NEGATIVE (Negative); Ketones Urine UA NEGATIVE (NEGATIVE); Leukocyte Esterase Urine UA NEGATIVE (NEGATIVE); Nitrite Urine UA NEGATIVE (Negative); Occult Blood Urine UA NEGATIVE (Negative); Protein Urine UA NEGATIVE (Negative); Urobilinogen Urine UA 0.2 E.U./dL (0.2)
[2019-02-06 17:29] LABS: Calcium Oxalate Crystals Urine Occasional; Culture Indicated Urine Cult Not Indicated; RBC Urine 0-1/HPF (0-5/HPF); Squamous Epithelial Cell Urine 0-1 /HPF (0-5/HPF); WBC Urine 1-5/HPF (0-5/HPF)
[2019-02-06 17:50] LABS: BUN Creatinine Ratio 22.5 (6-22); Blood Urea Nitrogen 18 mg/dL (7-17); Calcium 9.7 mg/dL (8.4-10.2); Carbon Dioxide 31 mmol/L (22-32); Chloride 100 mmol/L (98-107); Estimated Glomerular Filt Rate > 60.0 mL/min (>60); Glucose 74 mg/dL (80-110); HEMOLYSIS < 15 (0-50); Sodium 141 mmol/L (137-145)
[2019-02-06 17:53] LABS: Potassium 5.4 mmol/L (3.4-5.1)
== END ==
PROVIDERS: Family Provider Family Medicine; PCP Family Medicine; Visit Provider Physician Assistant
DX: I48.2 Chronic atrial fibrillation (principal); R30.0 Dysuria
CPT/HCPCS: 36415; 80048; 81001

== ENCOUNTER → 2019-05-15 14:05 | Outpatient (CLI) | payer MEDICARE, MEDICAID, SELFPAY ==
[2018-09-28 09:22] VITALS: BMI 27.7
[2019-05-15 15:08] LABS: Appearance Urine UA CLEAR; Bilirubin Urine UA NEGATIVE (NEGATIVE); Color Urine UA YELLOW; Glucose Urine UA NEGATIVE (Negative); Ketones Urine UA NEGATIVE (NEGATIVE); Leukocyte Esterase Urine UA TRACE (NEGATIVE); Nitrite Urine UA NEGATIVE (Negative); Occult Blood Urine UA NEGATIVE (Negative); Protein Urine UA NEGATIVE (Negative); Urobilinogen Urine UA 0.2 E.U./dL (0.2)
[2019-05-15 15:11] LABS: Bacteria Urine None Seen; RBC Urine None Seen (0-5/HPF); pH Urine UA 5.5 (4.5-8.0)
[2019-05-15 15:24] LABS: Culture Indicated Urine Cult Not Indicated; Granular Casts Urine 0-1/LPF; Hyaline Casts Urine 1-5/LPF; Mucus Urine 1+ (Negative); Squamous Epithelial Cell Urine 5-10 /HPF (0-5/HPF); WBC Urine 1-5/HPF (0-5/HPF)
== END ==
PROVIDERS: PCP Family Medicine; Visit Provider Family Medicine
DX: R30.0 Dysuria (principal); R41.0 Disorientation, unspecified
CPT/HCPCS: 81003; 81015

== ENCOUNTER → 2019-06-26 11:08 | Outpatient (CLI) | payer MEDICARE, MEDICAID, SELFPAY ==
[2018-09-28 09:22] VITALS: BMI 27.7
[2019-06-26 12:06] LABS: Add Manual Diff / Slide Review NO; Basophils Absolute Auto 100 /uL (0-100); Basophils Percent Auto 0.7 % (0-2); Eosinophils Absolute Auto 300 /uL (0-450); Eosinophils Percent Auto 2.8 % (2-4); Hematocrit 48.9 % (36-46); Hemoglobin 16.6 g/dL (12.0-16.0); Lymphocytes Absolute Auto 3500 /uL (1100-4500); Mean Corpuscular Volume 94.4 fL (80-100); Monocytes Absolute Auto 800 /uL (0-900); Monocytes Percent Auto 7.6 % (3-14); Neutrophils Absolute Auto 5500 /uL (1500-7000); Neutrophils Percent Auto 53.9 % (50-75); Platelet Count 224 X10^3/uL (150-400); Red Blood Cell Count 5.18 X10^6/uL (4.0-5.2); Red Cell Distribution Width 15.5 % (11.6-14.8); White Blood Cell Count 10.1 X10^3/uL (4.5-11.0)
[2019-06-26 12:11] LABS: Alanine Aminotransferase 24 IU/L (<35); Albumin 4.6 g/dL (3.5-5.0); Albumin Globulin Ratio 1.3 (1.0-2.8); Alkaline Phosphatase 102 U/L (38-126); Aspartate Aminotransferase 34 IU/L (14-36); BUN Creatinine Ratio 22.5 (6-22); Bilirubin Total 0.9 mg/dL (0.2-1.3); Blood Urea Nitrogen 18 mg/dL (7-17); Calcium 9.7 mg/dL (8.4-10.2); Carbon Dioxide 31 mmol/L (22-32); Chloride 103 mmol/L (98-107); Cholesterol 246 mg/dL (140-199); Estimated Glomerular Filt Rate > 60.0 mL/min (>60); Globulin 3.5 g/dL (1.7-4.1); Glucose 99 mg/dL (80-110); HDL Cholesterol 49 mg/dL (40-60); HEMOLYSIS < 15 (0-50); LDL Cholesterol Calculated 148 mg/dL (<100); Potassium 4.4 mmol/L (3.4-5.1); Sodium 142 mmol/L (137-145); Total Protein 8.1 g/dL (6.3-8.2); Triglycerides 244 mg/dL (35-150)
[2019-06-26 12:45] LABS: Free T3, Triiodothyronine Free 2.98 pg/mL (2.77-5.27)
[2019-06-26 12:58] LABS: Thyroid Stimulating Hormone 5.57 uIU/mL (0.47-4.68)
== END ==
PROVIDERS: PCP Family Medicine; Visit Provider Family Medicine
DX: E03.9 Hypothyroidism, unspecified (principal); F03.90 Unspecified dementia, unspecified severity, without behavioral disturbance, psychotic disturbance, mood disturbance, and anxiety; I48.91 Unspecified atrial fibrillation; M25.561 Pain in right knee; Z86.73 Personal history of transient ischemic attack (TIA), and cerebral infarction without residual deficits; E78.5 Hyperlipidemia, unspecified
CPT/HCPCS: 36415; 80053; 80061; 84439; 84443; 84481; 85025